=== PATIENT | male | born 1950 | race American Indian/Alaskan Native ===

== ENCOUNTER 2018-12-17 17:00 | Emergency (ER) | payer OTHER, SELFPAY ==
--- NOTE | 2018-12-17 17:00 | DI.RAD.S_ITS ---
PROCEDURE: XR CHEST 1V INDICATIONS: chest pain TECHNIQUE: One view of the chest was acquired. COMPARISON: [facility], , CHEST 2 VIEW, 09/11/2013, 11:31. FINDINGS: Surgical changes and devices: None. Lungs and pleura: There is mild diffuse bilateral groundglass density. No pleural effusions or pneumothorax. Mediastinum: Mediastinal contours appear normal. Heart size is enlarged. Bones and chest wall: No suspicious bony lesions. Overlying soft tissues appear unremarkable. IMPRESSION: Mild atypical pneumonia. Dictated by: Gail Flores M.D. on 12/17/2018 at 17:39 Approved by: Gail Flores M.D. on 12/17/2018 at 17:39
[2018-12-17 17:35] VITALS: BP 146/66; PULSE 86; RESP 19; TEMP 36.8; O2SAT 96
[2018-12-17 17:36] LABS: Add Manual Diff / Slide Review NO; Basophils Absolute Auto 0 /uL (0-100); Basophils Percent Auto 0.2 % (0-2); Eosinophils Absolute Auto 200 /uL (0-450); Eosinophils Percent Auto 2.8 % (2-4); Hematocrit 41.9 % (41-53); Hemoglobin 13.7 g/dL (13.5-17.5); Lymphocytes Absolute Auto 1500 /uL (1100-4500); Lymphocytes Percent Auto 22.8 % (25-40); Mean Corpuscular HGB Conc 32.7 % (30-36); Mean Corpuscular Hemoglobin 27.5 PG (26-34); Mean Corpuscular Volume 84.1 fL (80-100); Monocytes Absolute Auto 600 /uL (0-900); Monocytes Percent Auto 9.7 % (3-14); Neutrophils Absolute Auto 4100 /uL (1500-7000); Neutrophils Percent Auto 64.5 % (50-75); Platelet Count 218 X10^3/uL (150-400); Red Blood Cell Count 4.99 X10^6/uL (4.5-5.9); Red Cell Distribution Width 14.3 % (11.6-14.8); White Blood Cell Count 6.4 X10^3/uL (4.5-11.0)
--- NOTE | 2018-12-17 17:36 | ED.SYNCOPE ---
HPI - Syncope General Chief Complaint: Syncope Stated Complaint: Near Syncope Time Seen by Provider: 12/17/18 17:15 Source: patient and EMS Mode of arrival: EMS History of Present Illness HPI narrative: Patient is a 68-year-old male that presents with near syncopal episode. He walked 1.4 mild on the [employer] without difficulty got in his car drove about 100 he felt extremely lightheaded and dizzy no weakness chest pain or heart palpitations. He may have passed out briefly a co-worker was with him she did not notice any passing out. At which point 911 was called. He is overall feeling much better. He has a history of exercise induced near syncope. Related Data Home Medications Medication Instructions Recorded Confirmed multivitamin 1 tab PO DAILY #0 11/21/11 12/17/18 albuterol sulfate [Ventolin HFA] 2 puff INH PRN PRN #0 08/23/17 12/17/18 glipizide 5 mg PO QAM #0 08/23/17 12/17/18 hydrochlorothiazide 12.5 mg PO DAILY #0 08/23/17 12/17/18 losartan 100 mg PO DAILY #0 08/23/17 12/17/18 zolpidem 5 mg PO BEDTIME PRN #0 08/23/17 12/17/18 amlodipine 10 mg PO DAILY 12/17/18 12/17/18 aspirin 81 mg PO DAILY 12/17/18 12/17/18 atorvastatin 80 mg PO DAILY 12/17/18 12/17/18 buspirone 30 mg PO BID 12/17/18 12/17/18 carvedilol 25 mg PO BID 12/17/18 12/17/18 fluticasone propionate 1 spray INTRANASAL DAILY 12/17/18 12/17/18 glipizide 10 mg PO QPM 12/17/18 12/17/18 lidocaine 3 patch TOPICAL DAILY 12/17/18 12/17/18 metformin 500 mg PO BID 12/17/18 12/17/18 omeprazole 40 mg PO DAILY 12/17/18 12/17/18 oxybutynin chloride 5 mg PO TID 12/17/18 12/17/18 testosterone cypionate 300 mg IM Q3W 12/17/18 12/17/18 tramadol 50 mg PO Q6H PRN 12/17/18 12/17/18 Allergies Allergy/AdvReac Type Severity Reaction Status Date / Time Sulfa (Sulfonamide Allergy Severe RASH Unverified 12/11/17 13:03 Antibiotics) [SULFA (SULFONAMIDE ANTIBIOTICS)] iodine [IODINE] Allergy Mild RASH Unverified 12/11/17 13:03 Review of Systems Review of Systems ROS Unobtainable: All systems reviewed & are unremarkable except as noted in HPI and below Constitutional Denies chills, Denies fever(s), Denies lethargy and Denies weakness Eyes Denies change in vision, Denies eye discharge, Denies irritation and Denies loss of vision ENT Ears, Nose, Mouth, and Throat: Denies change in voice, Denies neck pain and Denies sore throat Cardiovascular Denies chest pain, Reports syncope, Denies irregular heart rhythm, Reports lightheadedness, Denies dyspnea and Denies dyspnea on exertion Respiratory Denies cough, Denies dyspnea, Denies dyspnea on exertion and Denies wheezing Gastrointestinal Gastrointestinal: Denies abdominal pain, Denies change in bowel habits, Denies diarrhea, Denies nausea and Denies vomiting Musculoskeletal Denies neck pain Integumentary/Breasts Denies pruritus, Denies erythema, Denies rash and Denies wounds Neurologic Reports syncope, Denies loss of vision and Denies weakness Allergic/Immunologic Denies wheezing FOR[facility]LY [facility], [facility] Medical History Diabetes (Acute) GERD (gastroesophageal reflux disease) (Acute) Hyperlipidemia (Acute) Hypertension (Acute) Social History (Updated 12/17/18 @ 19:08 by Carol Walter DO) Smoking Status: Never smoker substance use type: does not use Social History Smoking Status: Never smoker substance use type: does not use Exam Initial Vital Signs Initial Vital Signs: Vital Signs Temperature 98.3 F 12/17/18 17:35 Pulse Rate 86 12/17/18 17:35 Respiratory Rate 19 12/17/18 17:35 Blood Pressure 146/66 H 12/17/18 17:35 Pulse Oximetry 96 12/17/18 17:35 GENERAL: Alert male no acute distress a and O x3 HEENT: Head atraumatic,EOMI, pupils reactive, face symmetric CARDIOVASCULAR: Regular rate and rhythm without murmurs, rubs or gallops. RESPIRATORY: Breath sounds equal bilaterally, no wheezes rales or rhonchi. ABDOMEN: Soft, nontender. Normoactive bowel sounds all 4 quadrants. No guarding or rebound. EXTREMITIES: Normal range of motion, no clubbing or edema. Neurovascularly intact NEUROLOGICAL: Alert and oriented x4.Normal gait and speech. Cranial nerves II through XII grossly intact. Good [id number], good [id number], strength equal bilaterally, no dysarthria or aphasia, sensation in tact to soft touch bilaterally, no visual changes, no facial droop SKIN: Warm, dry, no laceration, no petechiae, no rashes or lesions. Scores NIH Stroke Scale Level of Conciousness: Alert, keenly responsive Ask month/age: Answers both questions correctly. Open/close eyes, close hand: Performs both tasks correctly Best gaze horizontal: Normal Visual brown: No visual loss Facial palsy: Normal symetrical movement Left arm drift: No drift for full 10 sec Right arm drift: No drift for full 10 sec Left leg drift: No drift for full 10 sec Right leg drift: No drift for full 10 sec Limb ataxia: Absent Sensory on face/arms/legs: Normal, no sensory loss Best language: No aphasia, normal Dysarthria: Normal Extinction or inattention: No abnormality Total NIH Stroke scale score: 0 Course Orders Ordered: Discontinued Medications Sodium Chloride (Normal Saline 0.9%) 1,000 mls @ 1,000 mls/hr IV BOLUS ONE Stop: 12/17/18 18:34 Last Admin: 12/17/18 18:20 Dose: 1,000 mls/hr Vital Signs - 8 hr 12/17/18 17:35 12/17/18 19:04 Temperature 98.3 F Pulse Rate 86 85 Respiratory Rate 19 22 Blood Pressure [Left Arm] 146/66 H 135/72 Pulse Oximetry 96 95 MDM - Syncope Lab Data Attestation: I reviewed the patient's lab results. Result diagrams: 12/17/18 17:26 12/17/18 17:26 Lab Results 12/17/18 12/17/18 12/17/18 Range/Units 17:26 17:26 17:26 WBC 6.4 (4.5-11.0) X10^3/uL RBC 4.99 (4.5-5.9) X10^6/uL Hgb 13.7 (13.5-17.5) g/dL Hct 41.9 (41-53) % MCV 84.1 (80-100) fL MCH 27.5 (26-34) PG MCHC 32.7 (30-36) % RDW 14.3 (11.6-14.8) % Plt Count 218 (150-400) X10^3/uL Neut % (Auto) 64.5 (50-75) % Lymph % (Auto) 22.8 L (25-40) % [place] % (Auto) 9.7 (3-14) % Eos % (Auto) 2.8 (2-4) % Baso % (Auto) 0.2 (0-2) % Neut # (Auto) 4100 (0921-2703) /uL Lymph # (Auto) 1500 (7416-5331) /uL [place] # (Auto) 600 (0-900) /uL Eos # (Auto) 200 (0-450) /uL Baso # (Auto) 0 (0-100) /uL PT 11.4 (10.1-12.7) SECONDS INR 1.0 (0.9-1.3) APTT 38 H (26.4-36.2) SECONDS Sodium 140 (137-145) mmol/L Potassium 4.6 (3.4-5.1) mmol/L Chloride 104 (98-107) mmol/L Carbon Dioxide 24 (22-32) mmol/L BUN 23 H (9-20) mg/dL Creatinine 1.30 H (0.66-1.25) mg/dL Estimated GFR 54.6 L (>60) mL/min BUN/Creatinine Ratio 17.7 (6-22) Glucose 180 H (80-110) mg/dL Calcium 9.6 (8.4-10.2) mg/dL Total Bilirubin 0.4 (0.2-1.3) mg/dL AST 26 (17-59) IU/L ALT 38 (21-72) IU/L Alkaline Phosphatase 58 (38-126) U/L Total Creatine Kinase 39 L (55-170) U/L CK-MB (CK-2) TNP CK-MB (CK-2) Rel Index TNP Troponin I < 0.012 (0.01-0.034) ng/mL Total Protein 7.6 (6.3-8.2) g/dL Albumin 4.7 (3.5-5.0) g/dL Globulin 2.9 (1.7-4.1) g/dL Albumin/Globulin Ratio 1.6 (1.0-2.8) Lipase 136 (23-300) U/L Point of Care Testing Glucose POC 191 Imaging Data Chest x-ray: Radiologist's impression: Not in [facility] but on PACS read by Radiology mild atypical pneumonia ECG Data Attestation: I personally reviewed and interpreted this ECG as follows: Prior ECG tracings: available for review Interpretation: EKG 1. Sinus rhythm with right bundle-branch block rate 87 [place] interval 219, no elevations previous EKG from 2013 atrial flutter EKG 2. Sinus rhythm rate 80 right bundle branch block similar to previous no ST change MDM Narrative Medical decision making narrative: Patient does not have signs or symptoms of pneumonia, does not clinically correlate no fever or white count or cough. Patient neurovascularly intact he did not actually pass out. Sounds like vasovagal reaction. Creatinine 1.3 today previous on 2012 seen creatinine of 0.80. Possible dehydration versus kidney disease. I recommended patient have his kidneys recheck. A loss of family in the room patient agreed to have medical discussion with them present. They all understood that he would likely need Holter monitor ECHO further workup as outpatient. They also agree and understand when to return to the ED. Discharge Plan Departure Patient Disposition: Home Clinical Impression: Vasovagal syncope Discharge Date/Time: 12/17/18 19:45 Interventions: ED Discharge Assessment Last Done: 12/17/18 19:45 Instructions: DI for Syncope in Adults (Fainting) Activity Restrictions/Additional Instructions: *You have been diagnosed with fainting episode *What to do: Today's episode is likely due to slight dehydration. Recommend drinking water right after walking. Frequent small low carb meals. I also recommend Holter monitor, echocardiogram and possible stress test all which can be arranged with your PCP *Continue to take medications as directed *Follow up with your primary care provider in 2-3 days *Return to ER if you should have recurrent near syncopal or syncopal episode, chest pain, worsening shortness of breath with exertion or any new, worsening or concerning symptoms Prescriptions: No Action multivitamin Tablet 1 tab PO DAILY Qty: 0 RF: 0 albuterol sulfate [Ventolin HFA] 90 MCG/PUFF HFA aerosol inhaler 2 puff INH PRN PRN (Reason: Shortness Of Breath) Qty: 0 RF: 0 hydrochlorothiazide 25 MG tablet 12.5 mg PO DAILY Qty: 0 RF: 0 losartan 100 MG tablet 100 mg PO DAILY Qty: 0 RF: 0 zolpidem 5 MG tablet 5 mg PO BEDTIME PRN (Reason: Sleep) Qty: 0 RF: 0 glipizide 5 MG tablet 5 mg PO QAM Qty: 0 RF: 0 metformin 500 mg Tablet 500 mg PO BID RF: 0 atorvastatin 80 mg Tablet 80 mg PO DAILY RF: 0 carvedilol 25 mg Tablet 25 mg PO BID RF: 0 tramadol 50 mg Tablet 50 mg PO Q6H PRN (Reason: pain) RF: 0 amlodipine 10 mg Tablet 10 mg PO DAILY RF: 0 buspirone 30 mg Tablet 30 mg PO BID RF: 0 lidocaine 5 % Adhesive Patch,Medicated 3 patch TOPICAL DAILY RF: 0 aspirin 81 mg Tablet,Chewable 81 mg PO DAILY RF: 0 testosterone cypionate 200 mg/mL Oil 300 mg IM Q3W RF: 0 oxybutynin chloride 5 mg Tablet 5 mg PO TID RF: 0 fluticasone propionate 50 mcg/actuation [place],Suspension 1 spray INTRANASAL DAILY RF: 0 glipizide 5 mg Tablet 10 mg PO QPM RF: 0 omeprazole 40 MG capsule,delayed release(DR/EC) 40 mg PO DAILY RF: 0 Referrals: Kathy Hoffmann MD [Primary Care Provider] -
--- NOTE | 2018-12-17 17:39 | ED_ITS ---
HPI - Syncope General Chief Complaint: Syncope Stated Complaint: Near Syncope Time Seen by Provider: 12/17/18 17:15 Source: patient and EMS Mode of arrival: EMS History of Present Illness HPI narrative: Patient is a 68-year-old male that presents with near syncopal episode. He walked 1.4 mild on the [place] without difficulty got in his car drove about 100 he felt extremely lightheaded and dizzy no weakness chest pain or heart palpitations. He may have passed out briefly a co-worker was with him she did not notice any passing out. At which point 911 was called. He is overall feeling much better. He has a history of exercise induced near syncope. Related Data Home Medications Medication Instructions Recorded Confirmed multivitamin 1 tab PO DAILY #0 11/21/11 12/17/18 albuterol sulfate [Ventolin HFA] 2 puff INH PRN PRN #0 08/23/17 12/17/18 glipizide 5 mg PO QAM #0 08/23/17 12/17/18 hydrochlorothiazide 12.5 mg PO DAILY #0 08/23/17 12/17/18 losartan 100 mg PO DAILY #0 08/23/17 12/17/18 zolpidem 5 mg PO BEDTIME PRN #0 08/23/17 12/17/18 amlodipine 10 mg PO DAILY 12/17/18 12/17/18 aspirin 81 mg PO DAILY 12/17/18 12/17/18 atorvastatin 80 mg PO DAILY 12/17/18 12/17/18 buspirone 30 mg PO BID 12/17/18 12/17/18 carvedilol 25 mg PO BID 12/17/18 12/17/18 fluticasone propionate 1 spray INTRANASAL DAILY 12/17/18 12/17/18 glipizide 10 mg PO QPM 12/17/18 12/17/18 lidocaine 3 patch TOPICAL DAILY 12/17/18 12/17/18 metformin 500 mg PO BID 12/17/18 12/17/18 omeprazole 40 mg PO DAILY 12/17/18 12/17/18 oxybutynin chloride 5 mg PO TID 12/17/18 12/17/18 testosterone cypionate 300 mg IM Q3W 12/17/18 12/17/18 tramadol 50 mg PO Q6H PRN 12/17/18 12/17/18 Allergies Allergy/AdvReac Type Severity Reaction Status Date / Time Sulfa (Sulfonamide Allergy Severe RASH Unverified 12/11/17 13:03 Antibiotics) [SULFA (SULFONAMIDE ANTIBIOTICS)] iodine [IODINE] Allergy Mild RASH Unverified 12/11/17 13:03 Review of Systems Review of Systems ROS Unobtainable: All systems reviewed & are unremarkable except as noted in HPI and below Constitutional Denies chills, Denies fever(s), Denies lethargy and Denies weakness Eyes Denies change in vision, Denies eye discharge, Denies irritation and Denies loss of vision ENT Ears, Nose, Mouth, and Throat: Denies change in voice, Denies neck pain and Denies sore throat Cardiovascular Denies chest pain, Reports syncope, Denies irregular heart rhythm, Reports lightheadedness, Denies dyspnea and Denies dyspnea on exertion Respiratory Denies cough, Denies dyspnea, Denies dyspnea on exertion and Denies wheezing Gastrointestinal Gastrointestinal: Denies abdominal pain, Denies change in bowel habits, Denies diarrhea, Denies nausea and Denies vomiting Musculoskeletal Denies neck pain Integumentary/Breasts Denies pruritus, Denies erythema, Denies rash and Denies wounds Neurologic Reports syncope, Denies loss of vision and Denies weakness Allergic/Immunologic Denies wheezing [facility] Medical History Diabetes (Acute) GERD (gastroesophageal reflux disease) (Acute) Hyperlipidemia (Acute) Hypertension (Acute) Social History (Updated 12/17/18 @ 19:08 by Carol Walter DO) Smoking Status: Never smoker substance use type: does not use Social History Smoking Status: Never smoker substance use type: does not use Exam Initial Vital Signs Initial Vital Signs: Vital Signs Temperature 98.3 F 12/17/18 17:35 Pulse Rate 86 12/17/18 17:35 Respiratory Rate 19 12/17/18 17:35 Blood Pressure 146/66 H 12/17/18 17:35 Pulse Oximetry 96 12/17/18 17:35 GENERAL: Alert male no acute distress a and O x3 HEENT: Head atraumatic,EOMI, pupils reactive, face symmetric CARDIOVASCULAR: Regular rate and rhythm without murmurs, rubs or gallops. RESPIRATORY: Breath sounds equal bilaterally, no wheezes rales or rhonchi. ABDOMEN: Soft, nontender. Normoactive bowel sounds all 4 quadrants. No guarding or rebound. EXTREMITIES: Normal range of motion, no clubbing or edema. Neurovascularly intact NEUROLOGICAL: Alert and oriented x4.Normal gait and speech. Cranial nerves II through XII grossly intact. Good ookida-[id number]-kzut, good glpw-[id number], strength equal bilaterally, no dysarthria or aphasia, sensation in tact to soft touch bilaterally, no visual changes, no facial droop SKIN: Warm, dry, no laceration, no petechiae, no rashes or lesions. Scores NIH Stroke Scale Level of Conciousness: Alert, keenly responsive Ask month/age: Answers both questions correctly. Open/close eyes, close hand: Performs both tasks correctly Best gaze horizontal: Normal Visual brown: No visual loss Facial palsy: Normal symetrical movement Left arm drift: No drift for full 10 sec Right arm drift: No drift for full 10 sec Left leg drift: No drift for full 10 sec Right leg drift: No drift for full 10 sec Limb ataxia: Absent Sensory on face/arms/legs: Normal, no sensory loss Best language: No aphasia, normal Dysarthria: Normal Extinction or inattention: No abnormality Total NIH Stroke scale score: 0 Course Orders Ordered: Discontinued Medications Sodium Chloride (Normal Saline 0.9%) 1,000 mls @ 1,000 mls/hr IV BOLUS ONE Stop: 12/17/18 18:34 Last Admin: 12/17/18 18:20 Dose: 1,000 mls/hr Vital Signs - 8 hr 12/17/18 17:35 12/17/18 19:04 Temperature 98.3 F Pulse Rate 86 85 Respiratory Rate 19 22 Blood Pressure [Left Arm] 146/66 H 135/72 Pulse Oximetry 96 95 MDM - Syncope Lab Data Attestation: I reviewed the patient's lab results. Result diagrams: 12/17/18 17:26 12/17/18 17:26 Lab Results 12/17/18 12/17/18 12/17/18 Range/Units 17:26 17:26 17:26 WBC 6.4 (4.5-11.0) X10^3/uL RBC 4.99 (4.5-5.9) X10^6/uL Hgb 13.7 (13.5-17.5) g/dL Hct 41.9 (41-53) % MCV 84.1 (80-100) fL MCH 27.5 (26-34) PG MCHC 32.7 (30-36) % RDW 14.3 (11.6-14.8) % Plt Count 218 (150-400) X10^3/uL Neut % (Auto) 64.5 (50-75) % Lymph % (Auto) 22.8 L (25-40) % [place] % (Auto) 9.7 (3-14) % Eos % (Auto) 2.8 (2-4) % Baso % (Auto) 0.2 (0-2) % Neut # (Auto) 4100 (0006-1657) /uL Lymph # (Auto) 1500 (6200-2676) /uL [place] # (Auto) 600 (0-900) /uL Eos # (Auto) 200 (0-450) /uL Baso # (Auto) 0 (0-100) /uL PT 11.4 (10.1-12.7) SECONDS INR 1.0 (0.9-1.3) APTT 38 H (26.4-36.2) SECONDS Sodium 140 (137-145) mmol/L Potassium 4.6 (3.4-5.1) mmol/L Chloride 104 (98-107) mmol/L Carbon Dioxide 24 (22-32) mmol/L BUN 23 H (9-20) mg/dL Creatinine 1.30 H (0.66-1.25) mg/dL Estimated GFR 54.6 L (>60) mL/min BUN/Creatinine Ratio 17.7 (6-22) Glucose 180 H (80-110) mg/dL Calcium 9.6 (8.4-10.2) mg/dL Total Bilirubin 0.4 (0.2-1.3) mg/dL AST 26 (17-59) IU/L ALT 38 (21-72) IU/L Alkaline Phosphatase 58 (38-126) U/L Total Creatine Kinase 39 L (55-170) U/L CK-MB (CK-2) TNP CK-MB (CK-2) Rel Index TNP Troponin I < 0.012 (0.01-0.034) ng/mL Total Protein 7.6 (6.3-8.2) g/dL Albumin 4.7 (3.5-5.0) g/dL Globulin 2.9 (1.7-4.1) g/dL Albumin/Globulin Ratio 1.6 (1.0-2.8) Lipase 136 (23-300) U/L Point of Care Testing Glucose POC 191 Imaging Data Chest x-ray: Radiologist's impression: Not in [facility] but on PACS read by Radiology mild atypical pneumonia ECG Data Attestation: I personally reviewed and interpreted this ECG as follows: Prior ECG tracings: available for review Interpretation: EKG 1. Sinus rhythm with right bundle-branch block rate 87 [place] interval 219, no elevations previous EKG from 2013 atrial flutter EKG 2. Sinus rhythm rate 80 right bundle branch block similar to previous no ST change MDM Narrative Medical decision making narrative: Patient does not have signs or symptoms of pneumonia, does not clinically correlate no fever or white count or cough. Patient neurovascularly intact he did not actually pass out. Sounds like vasovagal reaction. Creatinine 1.3 today previous on 2012 seen creatinine of 0.80. Possible dehydration versus kidney disease. I recommended patient have his kidneys recheck. A loss of family in the room patient agreed to have medical discussion with them present. They all understood that he would likely need Holter monitor ECHO further workup as outpatient. They also agree and understand when to return to the ED. Discharge Plan Departure Patient Disposition: Home Clinical Impression: Vasovagal syncope Discharge Date/Time: 12/17/18 19:45 Interventions: ED Discharge Assessment Last Done: 12/17/18 19:45 Instructions: DI for Syncope in Adults (Fainting) Activity Restrictions/Additional Instructions: *You have been diagnosed with fainting episode *What to do: Today's episode is likely due to slight dehydration. Recommend drinking water right after walking. Frequent small low carb meals. I also recommend Holter monitor, echocardiogram and possible stress test all which can be arranged with your PCP *Continue to take medications as directed *Follow up with your primary care provider in 2-3 days *Return to ER if you should have recurrent near syncopal or syncopal episode, chest pain, worsening shortness of breath with exertion or any new, worsening or concerning symptoms Prescriptions: No Action multivitamin Tablet 1 tab PO DAILY Qty: 0 RF: 0 albuterol sulfate [Ventolin HFA] 90 MCG/PUFF HFA aerosol inhaler 2 puff INH PRN PRN (Reason: Shortness Of Breath) Qty: 0 RF: 0 hydrochlorothiazide 25 MG tablet 12.5 mg PO DAILY Qty: 0 RF: 0 losartan 100 MG tablet 100 mg PO DAILY Qty: 0 RF: 0 zolpidem 5 MG tablet 5 mg PO BEDTIME PRN (Reason: Sleep) Qty: 0 RF: 0 glipizide 5 MG tablet 5 mg PO QAM Qty: 0 RF: 0 metformin 500 mg Tablet 500 mg PO BID RF: 0 atorvastatin 80 mg Tablet 80 mg PO DAILY RF: 0 carvedilol 25 mg Tablet 25 mg PO BID RF: 0 tramadol 50 mg Tablet 50 mg PO Q6H PRN (Reason: pain) RF: 0 amlodipine 10 mg Tablet 10 mg PO DAILY RF: 0 buspirone 30 mg Tablet 30 mg PO BID RF: 0 lidocaine 5 % Adhesive Patch,Medicated 3 patch TOPICAL DAILY RF: 0 aspirin 81 mg Tablet,Chewable 81 mg PO DAILY RF: 0 testosterone cypionate 200 mg/mL Oil 300 mg IM Q3W RF: 0 oxybutynin chloride 5 mg Tablet 5 mg PO TID RF: 0 fluticasone propionate 50 mcg/actuation [place],Suspension 1 spray INTRANASAL DAILY RF: 0 glipizide 5 mg Tablet 10 mg PO QPM RF: 0 omeprazole 40 MG capsule,delayed release(DR/EC) 40 mg PO DAILY RF: 0 Referrals: Kathy Hoffmann MD [Primary Care Provider] -
[2018-12-17 17:40] LABS: Prothrombin Time 11.4 SECONDS (10.1-12.7)
[2018-12-17 17:42] LABS: PTT Partial Thromboplastin Tim 38 SECONDS (26.4-36.2)
[2018-12-17 17:44] LABS: Alanine Aminotransferase 38 IU/L (21-72); Albumin 4.7 g/dL (3.5-5.0); Albumin Globulin Ratio 1.6 (1.0-2.8); Alkaline Phosphatase 58 U/L (38-126); Aspartate Aminotransferase 26 IU/L (17-59); BUN Creatinine Ratio 17.7 (6-22); Bilirubin Total 0.4 mg/dL (0.2-1.3); Blood Urea Nitrogen 23 mg/dL (9-20); Calcium 9.6 mg/dL (8.4-10.2); Carbon Dioxide 24 mmol/L (22-32); Chloride 104 mmol/L (98-107); Creatine Kinase 39 U/L (55-170); Estimated Glomerular Filt Rate 54.6 mL/min (>60); Globulin 2.9 g/dL (1.7-4.1); Glucose 180 mg/dL (80-110); HEMOLYSIS 25 (0-50); Lipase 136 U/L (23-300); Potassium 4.6 mmol/L (3.4-5.1); Sodium 140 mmol/L (137-145); Total Protein 7.6 g/dL (6.3-8.2)
[2018-12-17 17:56] LABS: Troponin I < 0.012 ng/mL (0.01-0.034)
[2018-12-17] MEDS: SODIUM CHLORIDE 0.9% 1,000 ML 1000 ML IV (18:20)
[2018-12-17 19:04] VITALS: BP 135/72; PULSE 85; RESP 22; O2SAT 95
== END 2018-12-17 19:45 | disposition home or self-care (01) ==
PROVIDERS: Emergency Provider Emergency Medicine; Family Provider Family Medicine; PCP Family Medicine
DX: R55 Syncope and collapse (principal)
CPT/HCPCS: 36415; 71045; 80053; 82550; 83690; 84484; 85025; 85610; 85730; 93005; 93010; 96360; 99282; 99283; 99285

== ENCOUNTER → 2018-12-22 10:42 | Outpatient (CLI) | payer OTHER, SELFPAY ==
--- NOTE | 2018-12-22 | DI.US.S_ITS ---
PROCEDURE: US CAROTID DOPPLER BI INDICATIONS: SYNCOPE AND COLLAPSE TECHNIQUE: Color and pulse Doppler interrogation was performed of both carotid systems, with image documentation and velocity measurements. COMPARISON: None. FINDINGS: Stenosis calculations are based on SRU (Society of Radiologists in Ultras[employer]) criteria. The flow velocities and the arterial waveforms are normal within both carotid arterial systems. Atherosclerotic plaque is seen on the right. The estimated degree of internal carotid artery stenosis is less than 50%. Antegrade flow is confirmed within both vertebral arteries. IMPRESSION: No hemodynamically significant stenosis is seen. Dictated by: Alessandro Delgadillo M.D. on 12/22/2018 at 12:05 Approved by: Alessandro Delgadillo M.D. on 12/22/2018 at 12:06
== END ==
PROVIDERS: Family Provider Family Medicine; PCP Family Medicine; Visit Provider Family Medicine
DX: R55 Syncope and collapse (principal)
CPT/HCPCS: 93880

== ENCOUNTER → 2019-01-06 15:40 | Outpatient (CLI) | payer OTHER, SELFPAY ==
--- NOTE | 2019-01-06 | DI.ECHO.S_ITS ---
[facility] +---------+ : : [address] : [address] : : : : [id number] : : : : Phone: [phone]+ Echocardiogram Report + + :Name: RAISA RICKS Study Date: 01/06/2019 Height: 68 in : :[facility] Exam Location: [facility] Weight: 223 lb : : Gender: Male BSA: 2.1 m2 : :: 1950 Age: 68 yrs BP: 120/75 mmHg: :Reason For Study: Syncope : :Ordering Physician: Kathy : :Shun Performed By: Ana Page : + + Interpretation Summary The left ventricle is normal in size. Left ventricular systolic function is low normal. The ejection fraction is estimated to be 50-55%. LV ejection fraction has not changed since 01/24/2017. There is a significant dyssynchronous contraction pattern, consistent with a conduction abnormality. There are no obvious focal wall motion abnormalities noted but poor endocardial definition reduces the sensitivity for the detection of such. Diastolic parameters suggest a relaxation abnormality of the left ventricle, consistent with probable normal filling pressures. The right ventricle is mildly dilated. The right ventricular systolic function is normal. Pulmonary artery pressures cannot be estimated because of the lack of a measurable TR jet velocity. Both atria are normal in size. There is no significant valvular heart disease. The aortic root is mildly dilated. The ascending aorta is mildly enlarged. Procedure: A two-dimensional transthoracic echocardiogram with color flow and Doppler was performed. The study quality was technically adequate. Comparison is made with the echocardiogram of 01/24/2017. The heart rate ranged between 64-74 bpm during the study. The patient had frequent PVCs during the exam. Left Ventricle: The left ventricle is normal in size. Left ventricular wall thickness is borderline increased. Left ventricular systolic function is low normal. The ejection fraction is estimated to be 50-55%. There is a significant dyssynchronous contraction pattern, consistent with a conduction abnormality. There are no obvious focal wall motion abnormalities noted but poor endocardial definition reduces the sensitivity for the detection of such. Diastolic parameters suggest a relaxation abnormality of the left ventricle, consistent with probable normal filling pressures. Right Ventricle: The right ventricle is mildly dilated. The right ventricular systolic function is normal. Atria: Both atria are normal in size. There is no Doppler evidence for an interatrial shunt. Mitral Valve: The mitral valve leaflets appear mildly thickened, but open well. There is trace mitral regurgitation. Aortic Valve: The aortic valve is trileaflet. The aortic valve opens well. The aortic valve is slightly calcified. There is trace aortic regurgitation. Tricuspid Valve: The tricuspid valve is normal in structure and function. There is a trace or physiologic amount of tricuspid regurgitation. Pulmonary artery pressures cannot be estimated because of the lack of a measurable TR jet velocity. Pulmonic Valve: The pulmonic valve is not well visualized. There is trace pulmonic regurgitation. There is no significant valvular heart disease. Great Vessels: The aortic root is mildly dilated. The ascending aorta is mildly enlarged. This is unchanged compared to the previous study. The pulmonary artery is not well visualized, but is probably normal size. The inferior vena cava was not well visualized. Pericardium/ Pleura There is no pericardial effusion. There is no pleural effusion. MMode/2D Measurements & Calculations LVIDd: 4.8 cm Ao root diam: 4.2 cm LVIDs: 3.2 cm asc Aorta Diam: 3.7 cm FS: 34.1 % EPSS: 1.1 cm IVSd: 1.0 cm LVPWd: 1.0 cm LV herron. diameter/BSA (cm/m^2): 2.3 LV sys. diameter/BSA (cm/m^2): 1.5 LA A2 area: 19.0 cm2 RA long axis: 4.5 cm LA A4 area: 20.2 cm2 RA area: 16.9 cm2 LA length (vol): 5.3 cm RA vol: 54.0 ml LA vol: 61.5 ml RA : 25.2 ml/m2 LA vol index: 28.7 ml/m2 RVD1 (basal): 4.6 cm RVD2 (mid): 4.7 cm Doppler Measurements & Calculations Ao V2 max: 143.6 cm/sec LVOT Max Gary: 75.7 cm/sec Ao V2 mean: 101.4 cm/sec LV V1 max P.3 mmHg Ao max P.2 mmHg LV V1 VTI: 14.8 cm Ao mean P.5 mmHg sev ratio: 0.60 Ao V2 VTI: 24.7 cm MV E max gary: 53.4 cm/sec PA V2 max: 57.2 cm/sec MV A max gary: 84.0 cm/sec PA V2 mean: 45.0 cm/sec MV E/A: 0.64 PA mean P.85 mmHg Med Peak E' Gary: 5.1 cm/sec PA Accel Time: 0.12 sec E/E' med: 10.6 Lat Peak E' Gary: 7.9 cm/sec E/E' lat: 6.7 E/e' average: 8.6 MV dec time: 0.27 sec MV P1/2t: 81.5 msec MV /2t max gary: 55.1 cm/sec MVA(2t): 2.7 cm2 Reading Physician:06:24 PM
== END ==
PROVIDERS: Family Provider Family Medicine; PCP Family Medicine; Visit Provider Family Medicine
DX: R55 Syncope and collapse (principal); I77.89 Other specified disorders of arteries and arterioles
CPT/HCPCS: 93306

== ENCOUNTER → 2019-12-21 15:54 | Outpatient (ROUT) | payer OTHER, SELFPAY ==
[2019-12-22 06:38] LABS: PSA Free % 32.1 % (.); PSA, Total 1.9 ng/mL (0.0-4.0)
== END ==
PROVIDERS: Family Provider Family Medicine; PCP Family Medicine; Visit Provider Family Medicine
DX: E29.1 Testicular hypofunction (principal)
CPT/HCPCS: 84153; 84154

== ENCOUNTER → 2020-02-02 16:38 | Outpatient (ROUT) | payer OTHER, SELFPAY ==
[2020-02-02 17:20] LABS: Collection Time Urine 24 Hours; Creatinine 24 Hour Urine 970 mg/day (1000-2000); Creatinine Urine Random 77.6 mg/dL; Protein (Total) Urine Random 76 mg/dL (0-12); Total Protein 24 Hour Urine 950 mg/day (42-225); Total Volume Urine 1250 mL
== END ==
PROVIDERS: Family Provider Family Medicine; PCP Family Medicine; Visit Provider Family Medicine
DX: R80.8 Other proteinuria (principal)
CPT/HCPCS: 82570; 84156

== ENCOUNTER → 2020-02-22 10:47 | Outpatient (CLI) | payer OTHER, SELFPAY ==
--- NOTE | 2020-02-22 10:52 | DI.RAD.S_ITS ---
PROCEDURE: XR KNEE RT 1TO2V INDICATIONS: Right hip and knee pain TECHNIQUE: 2 views of the knee were acquired. COMPARISON: [facility], [facility], XR KNEE STANDING BI, 02/22/2020, 10:52. [facility], [facility], KNEE 3V LEFT, 12/16/2009, 10:35. FINDINGS: Bones: No fractures or dislocations. No suspicious bony lesions. Mild right knee joint degeneration. Scattered degenerative subchondral sclerosis and spurring. Soft tissues: No joint effusion. No suspicious soft tissue calcifications. IMPRESSION: Mild right knee joint degeneration. If the patient's pain or other symptoms persist, consider further evaluation with MRI Dictated by: Arnold Garcia M.D. on 02/22/2020 at 13:02 Approved by: Arnold Garcia M.D. on 02/22/2020 at 13:03
--- NOTE | 2020-02-22 10:52 | DI.RAD.S_ITS ---
PROCEDURE: XR HIP W PEL IF DONE RT 2V INDICATIONS: Right hip and knee pain TECHNIQUE: AP pelvis with lateral view(s) of the right hip(s). COMPARISON: None. FINDINGS: Bones: No fractures or dislocations. Pelvic ring appears intact. No suspicious bony lesions. Lower lumbar spondylosis and facet arthropathy. Mild bilateral hip degeneration Soft tissues: The visualized bowel gas pattern is normal. No suspicious soft tissue calcifications. IMPRESSION: Mild bilateral hip degeneration Lower lumbar spondylosis and facet arthropathy. Dictated by: Arnold Garcia M.D. on 02/22/2020 at 13:03 Approved by: Arnold Garcia M.D. on 02/22/2020 at 13:05
--- NOTE | 2020-02-22 10:52 | DI.RAD.S_ITS ---
PROCEDURE: XR KNEE STANDING BI INDICATIONS: Right hip and knee pain TECHNIQUE: Single views of the right knee, and single views of the left knee. COMPARISON: [facility], , KNEE 3V LEFT, 12/16/2009, 10:35. FINDINGS: No acute fractures or dislocations. No focal osseous destruction. On the right, scattered degenerative subchondral sclerosis and spurring. Minimal narrowing of the medial and lateral joint space narrowing. On the left, scattered degenerative subchondral sclerosis and spurring. Mild narrowing of the medial joint space IMPRESSION: Mild bilateral knee joint degeneration Dictated by: Arnold Garcia M.D. on 02/22/2020 at 13:05 Approved by: Arnold Garcia M.D. on 02/22/2020 at 13:06
== END ==
PROVIDERS: Family Provider Family Medicine; PCP Family Medicine; Referring Provider Family Medicine; Visit Provider Family Medicine
DX: M25.551 Pain in right hip (principal); M25.561 Pain in right knee; M17.0 Bilateral primary osteoarthritis of knee; M16.0 Bilateral primary osteoarthritis of hip; M47.816 Spondylosis without myelopathy or radiculopathy, lumbar region
CPT/HCPCS: 73502; 73560; 73565

== ENCOUNTER → 2020-04-13 10:39 | Outpatient (CLI) | payer OTHER, SELFPAY ==
[2020-04-13 12:23] LABS: Hematocrit 43.3 % (41-53); Hemoglobin 14.6 g/dL (13.5-17.5); Mean Corpuscular HGB Conc 33.8 % (30-36); Mean Corpuscular Hemoglobin 27.5 PG (26-34); Mean Corpuscular Volume 81.2 fL (80-100); Platelet Count 175 X10^3/uL (150-400); Red Blood Cell Count 5.33 X10^6/uL (4.5-5.9); Red Cell Distribution Width 14.2 % (11.6-14.8); White Blood Cell Count 7.3 X10^3/uL (4.5-11.0)
[2020-04-13 12:44] LABS: BUN Creatinine Ratio 18.1 (6-22); Blood Urea Nitrogen 15 mg/dL (9-20); Calcium 9.1 mg/dL (8.4-10.2); Carbon Dioxide 23 mmol/L (22-32); Chloride 106 mmol/L (98-107); Estimated Glomerular Filt Rate > 60.0 mL/min (>60); Glucose 193 mg/dL (80-110); HEMOLYSIS 16 (0-50); Potassium 3.3 mmol/L (3.4-5.1); Sodium 138 mmol/L (137-145)
[2020-04-13 16:44] LABS: Creatinine Urine Random 146.9 mg/dL; Protein (Total) Urine Random 142 mg/dL (0-12); Protein Creatinine Ratio Urine 0.96 GRAM/24H
== END ==
PROVIDERS: Family Provider Family Medicine; PCP Family Medicine; Referring Provider Student in an Organized Health Care Education/Training Program; Visit Provider Student in an Organized Health Care Education/Training Program
DX: N05.9 Unspecified nephritic syndrome with unspecified morphologic changes (principal); D70.9 Neutropenia, unspecified; D63.1 Anemia in chronic kidney disease; R80.9 Proteinuria, unspecified
CPT/HCPCS: 36415; 80048; 82570; 84156; 85027

== ENCOUNTER → 2020-04-20 12:15 | Outpatient (CLI) | payer OTHER, SELFPAY ==
--- NOTE | 2020-04-20 | DI.US.S_ITS ---
PROCEDURE: US RENAL COMPLETE INDICATIONS: CKD TECHNIQUE: Real-time scanning was performed of the kidneys and bladder, with image documentation. COMPARISON: None. FINDINGS: Kidneys: Kidneys are normal in size. Right kidney measures 11.3 cm long; left kidney measures 12.5 cm long. Right renal cortical thickness is 1.9 cm; left renal cortical thickness is 1.7 cm. Renal cortical echotexture is normal. No hydronephrosis or nephrolithiasis. No suspicious solid mass lesions. Left renal cyst measuring 1.9 x 1.8 x 1.7 cm with simple appearance. Bladder: Pre-void bladder volume is 331 mL. Post-void residual is 103 mL. Pre-void images demonstrate no intraluminal masses or stones. On pre-void images, neither of the ureteral jets are noted with color Doppler interrogation. (Of note, ureteral jets may not be detectable in up to 25% of cases due to insufficient differences in specific gravity between ureteral and bladder urine). Miscellaneous: No free pelvic fluid. IMPRESSION: Simple appearing left renal cyst Postvoid residual measures 103 mL. Dictated by: Arnold Garcia M.D. on 04/20/2020 at 15:19 Approved by: Arnold Garcia M.D. on 04/20/2020 at 15:21
== END ==
PROVIDERS: Family Provider Family Medicine; PCP Family Medicine; Referring Provider Family Medicine; Visit Provider Student in an Organized Health Care Education/Training Program
DX: N18.2 Chronic kidney disease, stage 2 (mild) (principal); N28.1 Cyst of kidney, acquired
CPT/HCPCS: 76770

== ENCOUNTER → 2020-05-16 09:31 | Outpatient (CLI) | payer OTHER, SELFPAY ==
[2020-05-16 10:55] LABS: Creatinine Urine Random 215.8 mg/dL; Protein (Total) Urine Random 134 mg/dL (0-12); Protein Creatinine Ratio Urine 0.62 GRAM/24H
[2020-05-16 11:07] LABS: Blood Urea Nitrogen 15 mg/dL (9-20); Calcium 9.5 mg/dL (8.4-10.2); Carbon Dioxide 27 mmol/L (22-32); Chloride 104 mmol/L (98-107); Estimated Glomerular Filt Rate > 60.0 mL/min (>60); Glucose 208 mg/dL (80-110); HEMOLYSIS < 15 (0-50); Potassium 3.8 mmol/L (3.4-5.1); Sodium 141 mmol/L (137-145)
[2020-05-17 08:10] LABS: Complement C3 129 mg/dL (82-167)
[2020-05-18 20:52] LABS: Albumin 4.3 g/dL (2.9-4.4); Alpha-1-Globulin 0.1 g/dL (0.0-0.4); Alpha-2-Globulin 0.8 g/dL (0.4-1.0); Cytoplasmic C-ANCA <1:20 titer (Neg:<1:20); DNA (DS) Antibody 1 IU/mL (0-9); Gamma Globulin 1.1 g/dL (0.4-1.8); Perinuclear P-ANCA <1:20 titer (Neg:<1:20); Protein, Total 7.3 g/dL (6.0-8.5)
[2020-05-18 21:08] LABS: ANA Screen, IFA Negative (.)
[2020-05-20 11:03] LABS: Alpha-1 Globulin, Ur 7.1 % (.); Beta Globulin, Ur 16.4 % (.); Gamma Globulin, Ur 14.9 % (.); M-Spike % Not Observed % (Not Observed); Urine Total Protein 245.5 mg/dL (Not Estab.)
[2020-06-06 15:39] LABS: Immunoglobulin G,Serum 1115
[2020-06-06 15:40] LABS: Immunoglobulin A, Serum 104; Immunoglobulin M, Serum 74
== END ==
PROVIDERS: Family Provider Family Medicine; PCP Family Medicine; Referring Provider Family Medicine; Visit Provider Student in an Organized Health Care Education/Training Program
DX: L93.2 Other local lupus erythematosus (principal); M31.30 Wegener's granulomatosis without renal involvement; M32.10 Systemic lupus erythematosus, organ or system involvement unspecified; N00.9 Acute nephritic syndrome with unspecified morphologic changes; N05.9 Unspecified nephritic syndrome with unspecified morphologic changes; D89.89 Other specified disorders involving the immune mechanism, not elsewhere classified; D47.2 Monoclonal gammopathy; R80.9 Proteinuria, unspecified
CPT/HCPCS: 36415; 80048; 82570; 82784; 83516; 84155; 84156; 84165; 84166; 86038; 86160; 86225; 86334; 86335

== ENCOUNTER 2020-08-26 17:43 | Inpatient (IN) | payer OTHER, MEDICARE, SELFPAY ==
[2020-08-26] VITALS (46 sets, daily range): BP systolic 86–184; BP diastolic 47–101; PULSE 98–129; RESP 18–58; TEMP 36.2–37.3; O2SAT 90–100; BMI 34.4; BMI 33.2
--- NOTE | 2020-08-26 17:59 | DI.RAD.S_ITS ---
PROCEDURE: XR CHEST 1V INDICATIONS: sob TECHNIQUE: One view of the chest was acquired. COMPARISON: [facility], CR, XR CHEST 1V, 12/17/2018, 17:24. FINDINGS: Surgical changes and devices: Left-sided cardiac pacer device is in place. Lungs and pleura: Diffuse interstitial prominence. Suspected trace bilateral pleural effusions. Patchy bibasilar consolidations more pronounced on the right. Mediastinum: Mediastinal contours appear stable. Heart size is enlarged. Bones and chest wall: No suspicious bony lesions. Overlying soft tissues appear unremarkable. IMPRESSION: Cardiomegaly with diffuse interstitial prominence and patchy ill-defined bibasilar consolidations. Suspected trace bilateral pleural effusions. Findings may represent an infectious process (multifocal pneumonia) versus pulmonary edema. Recommend follow up chest radiograph 4-6 weeks after treatment to document resolution of findings and/or return to baseline examination. Dictated by: Foreign Ordoñez M.D. on 08/26/2020 at 18:17 Approved by: Foreign Ordoñez M.D. on 08/26/2020 at 18:20
--- NOTE | 2020-08-26 18:19 | ED.SOB ---
HPI - SOB/Dyspnea General Chief Complaint: Shortness of Breath/Dyspnea Stated Complaint: Resp distress Time Seen by Provider: 08/26/20 17:58 Source: patient and EMS Mode of arrival: EMS Limitations: no limitations History of Present Illness HPI Narrative: Patient is a 70-year-old male presents with sudden-onset shortness of breath. He does have a history of diabetes, pacemaker hypertension hyperlipidemia. He states he felt fine this morning took a nap woke up and felt like he was extremely short of breath. He denies any fever or cough or any chest pain. He is noted to be quite short of breath and dusky appearing. Immediately placed on BiPAP Started feeling better. He denies any known history of congestive heart failure, but does have a pacemaker Later after speaking with his daughter he apparently has not been feeling well for the last few days. He even got a COVID test. Symptoms are otherwise unclear. MD Complaint: shortness of breath Exacerbating factors: lying flat and exertion Related Data Home oxygen amount: none Home Medications Medication Instructions Recorded Confirmed multivitamin 1 tab PO DAILY #0 11/21/11 12/17/18 albuterol sulfate [Ventolin HFA] 2 puff INH PRN PRN #0 08/23/17 12/17/18 glipizide 5 mg PO QAM #0 08/23/17 12/17/18 hydrochlorothiazide 12.5 mg PO DAILY #0 08/23/17 12/17/18 losartan 100 mg PO DAILY #0 08/23/17 12/17/18 zolpidem 5 mg PO BEDTIME PRN #0 08/23/17 12/17/18 amlodipine 10 mg PO DAILY 12/17/18 12/17/18 aspirin 81 mg PO DAILY 12/17/18 12/17/18 atorvastatin 80 mg PO DAILY 12/17/18 12/17/18 buspirone 30 mg PO BID 12/17/18 12/17/18 carvedilol 25 mg PO BID 12/17/18 12/17/18 fluticasone propionate 1 spray INTRANASAL DAILY 12/17/18 12/17/18 glipizide 10 mg PO QPM 12/17/18 12/17/18 lidocaine 3 patch TOPICAL DAILY 12/17/18 12/17/18 metformin 500 mg PO BID 12/17/18 12/17/18 omeprazole 40 mg PO DAILY 12/17/18 12/17/18 oxybutynin chloride 5 mg PO TID 12/17/18 12/17/18 testosterone cypionate 300 mg IM Q3W 12/17/18 12/17/18 tramadol 50 mg PO Q6H PRN 12/17/18 12/17/18 Allergies Allergy/AdvReac Type Severity Reaction Status Date / Time Sulfa (Sulfonamide Allergy Severe RASH Verified 08/26/20 17:45 Antibiotics) [SULFA (SULFONAMIDE ANTIBIOTICS)] iodine [IODINE] Allergy Mild RASH Verified 08/26/20 17:45 Review of Systems Review of Systems ROS Unobtainable: All systems reviewed & are unremarkable except as noted in HPI and below Constitutional Constitutional: Denies frequent falls ENT Ears, Nose, Mouth, and Throat: Denies dizziness Cardiovascular Cardiovascular: Reports as per HPI and Reports dyspnea Respiratory Respiratory: Reports as per HPI and Reports dyspnea Musculoskeletal Musculoskeletal: Denies back pain, Denies myalgias and Denies numbness Integumentary/Breasts Skin/Breast: Denies pruritus, Denies erythema, Denies rash and Denies wounds Neurologic Neurologic: Denies behavioral changes, Denies confusion, Denies dizziness, Denies frequent falls and Denies numbness Psychiatric Psychiatric: Denies behavioral changes and Denies confusion Patient History Medical History (Updated 08/26/20 @ 20:13 by Carol Walter DO) Diabetes GERD (gastroesophageal reflux disease) Hyperlipidemia Hypertension Social History Smoking Status: Never smoker substance use type: does not use Smoking Status: Never smoker Substance Use Type: does not use Exam Initial Vital Signs Initial Vital Signs: Vital Signs Temperature 97.1 F L 08/26/20 17:47 Pulse Rate 129 H 08/26/20 17:47 Respiratory Rate 58 H 08/26/20 17:47 Blood Pressure 139/101 H 08/26/20 17:47 Pulse Oximetry 98 08/26/20 17:47 GENERAL: Severe respiratory distress pale and in cololr. HEENT: Head atraumatic,EOMI, pupils reactive, face symmetric, moist mucous membranes CARDIOVASCULAR: Regular rate and rhythm without murmurs, rubs or gallops. RESPIRATORY: Coarse breath sounds bilaterally ABDOMEN: Soft, nontender. Normoactive bowel sounds all 4 quadrants. No guarding or rebound. EXTREMITIES: Normal range of motion, no clubbing or edema. Neurovascularly intact NEUROLOGICAL: Alert and oriented x4. SKIN: Warm, dry, no laceration, no petechiae, no rashes or lesions. Procedures Cardioversion Consent Signed: Yes Stability: Stable Number of attempts (shocks): 2 Joules used: 200 Cardiac rhythm post-cardioversion: Unchanged Additional Comments: 1 attempt at 150 joules 2nd attempt at 200 joules and no real changes Procedural Sedation Consent signed: Yes Time out performed: Yes Indication: cardioversion Preparation: cardiac cath lab manager applied, pulse oximeter and supplemental O2 applied IV Propofol dose (mg): 100 Intraservice time/total sedation time (min): 13 ED Sedation Level: Moderate (Concious) Complications: none Additional Comments: Patient was left on BiPAP for cardioversion Course Orders Ordered: ED Orders 08/26/20 17:58 Consult to Respiratory Therapy Evaluate & Treat Arterial Blood Gas Stat BiPAP Ventilatory Support RT PROTOCOL EKG-12 Lead Stat 08/26/20 17:59 XR chest 1V Stat 08/26/20 18:00 COVID19 Stat Complete Blood Count AUTO DIFF Stat Comprehensive Metabolic Panel Stat Lactate (Lactic Acid) Stat Magnesium Stat NT-proBNP (BNP-Adult 18+) Stat Partial Thromboplastin Time Stat Procalcitonin Stat Prothrombin Time INR Stat Troponin & CK Cardiac Panel Stat 08/26/20 18:20 Blood Culture Stat Acetaminophen (Acetaminophen 325 Mg Tablet) 650 mg PO Q4HR PRN PRN Reason: Fever/Mild Pain (1-3) Bisacodyl (Bisacodyl 10 Mg Supp) 10 mg MS DAILY PRN PRN Reason: Constipation Dextrose (Dextrose 50 % In Water 25 Gm/50 Ml Syringe) 25 gm IV PRN PRN; Protocol PRN Reason: Hypoglycemia Docusate Sodium (Docusate 100 Mg Capsule) 100 mg PO BID ZAC Enoxaparin Sodium (Enoxaparin 40 Mg/0.4 Ml Syringe) 40 mg SUBCUT DAILY ZAC Nitroglycerin (Nitroglycerin) 50 mg in 250 mls @ 1.5 mls/hr IV TITRATE ZAC; Protocol Last Titration: 08/26/20 21:04 Dose: 0 mcg/min, 0 mls/hr Documented by: Titration: 08/26/20 19:12 Dose: 0 mcg/min, 0 mls/hr Documented by: Admin: 08/26/20 18:38 Dose: 5 mcg/min, 1.5 mls/hr Documented by: MIRANDA Piperacillin/Tazobactam/Dextrose (Zosyn) 4.5 gm in 100 mls @ 200 mls/hr IV Q6H ZAC Insulin Aspart (Insulin Aspart 100 Unit/Ml Insuln Pen) 0 unit SUBCUT ACHS ZAC; Protocol Morphine Sulfate (Morphine 2 Mg/Ml Inj) 2 mg IV Q4HR PRN PRN Reason: Pain, Moderate (4-6) Naloxone HCl (Naloxone 0.4 Mg/Ml Vial) 0.2 mg IV Q2MIN PRN PRN Reason: Opiate Reversal Ondansetron HCl (Ondansetron 4 Mg/2 Ml Inj) 4 mg IV Q8HR PRN PRN Reason: Nausea And Vomiting Pantoprazole Sodium (Pantoprazole 40 Mg Vial) 40 mg IV DAILY ZAC Discontinued Medications Furosemide (Furosemide 40 Mg/4 Ml Vial) 40 mg IV NOW ONE Stop: 08/26/20 17:59 Last Admin: 08/26/20 18:27 Dose: 40 mg Documented by: MIRANDA Furosemide (Furosemide 20 Mg/2 Ml Vial) 20 mg IV NOW ONE Stop: 08/26/20 21:35 Amiodarone HCl/Dextrose (Nexterone) 150 mg in 100 mls @ 600 mls/hr IV NOW ONE; Protocol Stop: 08/26/20 18:27 Last Infusion: 08/26/20 18:46 Dose: 0 mls/hr Documented by: Admin: 08/26/20 18:31 Dose: 600 mls/hr Documented by: MIRANDA Amiodarone HCl/Dextrose (Nexterone) 360 mg in 200 mls @ 33.333 mls/hr IV NOW ONE; Protocol Stop: 08/27/20 00:17 Last Titration: 08/26/20 21:04 Dose: 0 mls/hr, 0 mls/hr Documented by: Titration: 08/26/20 20:02 Dose: 0 mls/hr, 0 mls/hr Documented by: Admin: 08/26/20 18:58 Dose: 33.33 mls/hr, 33.333 mls/hr Documented by: MIRANDA Piperacillin/Tazobactam/Dextrose (Zosyn) 3.375 gm in 50 mls @ 100 mls/hr IV NOW ONE Stop: 08/26/20 19:22 Last Infusion: 08/26/20 19:35 Dose: 0 mls/hr Documented by: Admin: 08/26/20 18:55 Dose: 100 mls/hr Documented by: NICK Nitroglycerin (Nitroglycerin Oint 1 Inch/Gm Oint...G.) 1 inch TOP NOW ONE Stop: 08/26/20 21:34 Propofol (Propofol 200 Mg/20 Ml Vial) 100 mg IV NOW ONE Stop: 08/26/20 18:58 Last Admin: 08/26/20 19:12 Dose: 100 mg Documented by: NICK Consultations Consultation #1: Dr. Yee updated patient's symptoms in test results at this time a magnet is placed on patient. She recommends interrogating the pacemaker device. It is [employer]. 1955. Again talked with Dr. Yee after interrogation report came in. She reviewed it herself. She states patient is in a sinus rhythm. Thinks patient more likely has a pneumonia rather than CHF. She states certainly this is not a bad heart to arrhythmia. Time: 19:31 Vital Signs Vital signs: Vital Signs - 8 hr 08/26/20 17:47 08/26/20 17:55 08/26/20 17:56 Temperature 97.1 F L Pulse Rate 129 H 129 H 129 H Respiratory Rate 58 H 28 H 26 H Blood Pressure 139/101 H 184/88 H Pulse Oximetry 98 100 100 08/26/20 18:00 08/26/20 18:06 08/26/20 18:10 Temperature Pulse Rate 128 H 124 H 122 H Respiratory Rate 28 H 42 H 35 H Blood Pressure 164/74 H 147/86 H 148/83 H Pulse Oximetry 100 100 99 08/26/20 18:17 08/26/20 18:20 08/26/20 18:24 Temperature Pulse Rate 121 H 120 H 123 H Respiratory Rate 33 H 34 H 35 H Blood Pressure 146/84 H 132/75 144/72 H Pulse Oximetry 100 100 99 08/26/20 18:26 08/26/20 18:30 08/26/20 18:32 Temperature Pulse Rate 122 H 122 H 123 H Respiratory Rate 37 H 40 H 37 H Blood Pressure 125/59 L 129/89 Pulse Oximetry 100 100 100 08/26/20 18:35 08/26/20 18:38 08/26/20 18:40 Temperature Pulse Rate 125 H 124 H 124 H Respiratory Rate 34 H 32 H Blood Pressure 143/74 H 143/74 H 142/67 H Pulse Oximetry 99 99 08/26/20 18:45 08/26/20 18:50 08/26/20 18:55 Temperature Pulse Rate 120 H 116 H 116 H Respiratory Rate 32 H 30 H 29 H Blood Pressure 129/77 126/75 129/74 Pulse Oximetry 99 98 100 08/26/20 19:00 08/26/20 19:05 08/26/20 19:10 Temperature Pulse Rate 117 H 112 H 114 H Respiratory Rate 31 H 26 H 28 H Blood Pressure 128/68 116/56 L 132/61 Pulse Oximetry 99 98 98 08/26/20 19:15 08/26/20 19:17 08/26/20 19:20 Temperature Pulse Rate 102 H 100 H 99 H Respiratory Rate 51 H 33 H 33 H Blood Pressure 86/47 L 102/57 L 93/55 L Pulse Oximetry 96 95 99 08/26/20 19:25 08/26/20 19:28 08/26/20 19:30 Temperature Pulse Rate 99 H 98 H Respiratory Rate 28 H 26 H Blood Pressure 93/52 L 93/52 L 104/57 L Pulse Oximetry 97 100 08/26/20 19:35 08/26/20 19:40 08/26/20 19:41 Temperature Pulse Rate 99 H 102 H Respiratory Rate 26 H 38 H Blood Pressure 96/53 L 107/74 107/74 Pulse Oximetry 98 90 L 08/26/20 19:45 08/26/20 19:50 08/26/20 19:55 Temperature Pulse Rate 99 H 98 H 100 H Respiratory Rate 25 H 28 H 27 H Blood Pressure 100/67 106/66 113/68 Pulse Oximetry 96 98 97 08/26/20 20:00 08/26/20 20:05 08/26/20 20:10 Temperature Pulse Rate 99 H 99 H 100 H Respiratory Rate 33 H 28 H 36 H Blood Pressure 113/70 97/59 L 108/66 Pulse Oximetry 97 97 97 MDM - SOB/Dyspnea Lab Data Attestation: I reviewed the patient's lab results. Result diagrams: 08/26/20 18:00 08/26/20 18:00 Labs: Lab Results 08/26/20 08/26/20 08/26/20 Range/Units 18:00 18:00 18:00 WBC 17.4 H (4.5-11.0) X10^3/uL RBC 5.43 (4.5-5.9) X10^6/uL Hgb 14.7 (13.5-17.5) g/dL Hct 45.2 (41-53) % MCV 83.2 (80-100) fL MCH 27.1 (26-34) PG MCHC 32.5 (30-36) % RDW 14.8 (11.6-14.8) % Plt Count 190 (150-400) X10^3/uL Neut % (Auto) 78.8 H (50-75) % Lymph % (Auto) 12.3 L (25-40) % Branch % (Auto) 7.4 (3-14) % Eos % (Auto) 1.2 L (2-4) % Baso % (Auto) 0.3 (0-2) % Neut # (Auto) 46225 H (0310-6089) /uL Lymph # (Auto) 2100 (1640-4022) /uL Branch # (Auto) 1300 H (0-900) /uL Eos # (Auto) 200 (0-450) /uL Baso # (Auto) 100 (0-100) /uL PT 11.5 (10.1-12.7) SECONDS INR 1.0 (0.9-1.3) APTT 32 D (26.4-36.2) SECONDS Sodium (137-145) mmol/L Potassium (3.4-5.1) mmol/L Chloride (98-107) mmol/L Carbon Dioxide (22-32) mmol/L BUN (9-20) mg/dL Creatinine (0.66-1.25) mg/dL Estimated GFR (>60) mL/min BUN/Creatinine Ratio (6-22) Glucose (80-110) mg/dL Lactate (0.7-2.1) mmol/L Calcium (8.4-10.2) mg/dL Magnesium 1.8 (1.6-2.3) mg/dL Total Bilirubin (0.2-1.3) mg/dL AST (17-59) IU/L ALT (<50) IU/L Alkaline Phosphatase (38-126) U/L Total Creatine Kinase 101 (55-170) U/L CK-MB (CK-2) 1.37 (<2.37) ng/mL CK-MB (CK-2) Rel Index 1.4 L (1.5-5.0) % Troponin I 0.071 H (0.01-0.034) ng/mL NT-Pro-B Natriuret Pep 2310 H (<125) pg/mL Total Protein (6.3-8.2) g/dL Albumin (3.5-5.0) g/dL Globulin (1.7-4.1) g/dL Albumin/Globulin Ratio (1.0-2.8) Procalcitonin (<0.5) ng/mL COVID-19 PCR (Negative) 08/26/20 08/26/20 08/26/20 Range/Units 18:00 18:00 18:00 WBC (4.5-11.0) X10^3/uL RBC (4.5-5.9) X10^6/uL Hgb (13.5-17.5) g/dL Hct (41-53) % MCV (80-100) fL MCH (26-34) PG MCHC (30-36) % RDW (11.6-14.8) % Plt Count (150-400) X10^3/uL Neut % (Auto) (50-75) % Lymph % (Auto) (25-40) % Branch % (Auto) (3-14) % Eos % (Auto) (2-4) % Baso % (Auto) (0-2) % Neut # (Auto) (0128-1551) /uL Lymph # (Auto) (9801-9180) /uL Branch # (Auto) (0-900) /uL Eos # (Auto) (0-450) /uL Baso # (Auto) (0-100) /uL PT (10.1-12.7) SECONDS INR (0.9-1.3) APTT (26.4-36.2) SECONDS Sodium 139 (137-145) mmol/L Potassium 4.1 (3.4-5.1) mmol/L Chloride 107 (98-107) mmol/L Carbon Dioxide 24 (22-32) mmol/L BUN 22 H (9-20) mg/dL Creatinine 1.67 H (0.66-1.25) mg/dL Estimated GFR 40.6 L (>60) mL/min BUN/Creatinine Ratio 13.2 (6-22) Glucose 258 H (80-110) mg/dL Lactate 2.1 (0.7-2.1) mmol/L Calcium 8.9 (8.4-10.2) mg/dL Magnesium (1.6-2.3) mg/dL Total Bilirubin 0.6 (0.2-1.3) mg/dL AST 26 (17-59) IU/L ALT 29 (<50) IU/L Alkaline Phosphatase 84 (38-126) U/L Total Creatine Kinase (55-170) U/L CK-MB (CK-2) (<2.37) ng/mL CK-MB (CK-2) Rel Index (1.5-5.0) % Troponin I (0.01-0.034) ng/mL NT-Pro-B Natriuret Pep (<125) pg/mL Total Protein 7.3 (6.3-8.2) g/dL Albumin 4.0 (3.5-5.0) g/dL Globulin 3.3 (1.7-4.1) g/dL Albumin/Globulin Ratio 1.2 (1.0-2.8) Procalcitonin < 0.05 (<0.5) ng/mL COVID-19 PCR (Negative) 08/26/20 Range/Units 18:00 WBC (4.5-11.0) X10^3/uL RBC (4.5-5.9) X10^6/uL Hgb (13.5-17.5) g/dL Hct (41-53) % MCV (80-100) fL MCH (26-34) PG MCHC (30-36) % RDW (11.6-14.8) % Plt Count (150-400) X10^3/uL Neut % (Auto) (50-75) % Lymph % (Auto) (25-40) % Branch % (Auto) (3-14) % Eos % (Auto) (2-4) % Baso % (Auto) (0-2) % Neut # (Auto) (0788-2293) /uL Lymph # (Auto) (7394-4646) /uL Branch # (Auto) (0-900) /uL Eos # (Auto) (0-450) /uL Baso # (Auto) (0-100) /uL PT (10.1-12.7) SECONDS INR (0.9-1.3) APTT (26.4-36.2) SECONDS Sodium (137-145) mmol/L Potassium (3.4-5.1) mmol/L Chloride (98-107) mmol/L Carbon Dioxide (22-32) mmol/L BUN (9-20) mg/dL Creatinine (0.66-1.25) mg/dL Estimated GFR (>60) mL/min BUN/Creatinine Ratio (6-22) Glucose (80-110) mg/dL Lactate (0.7-2.1) mmol/L Calcium (8.4-10.2) mg/dL Magnesium (1.6-2.3) mg/dL Total Bilirubin (0.2-1.3) mg/dL AST (17-59) IU/L ALT (<50) IU/L Alkaline Phosphatase (38-126) U/L Total Creatine Kinase (55-170) U/L CK-MB (CK-2) (<2.37) ng/mL CK-MB (CK-2) Rel Index (1.5-5.0) % Troponin I (0.01-0.034) ng/mL NT-Pro-B Natriuret Pep (<125) pg/mL Total Protein (6.3-8.2) g/dL Albumin (3.5-5.0) g/dL Globulin (1.7-4.1) g/dL Albumin/Globulin Ratio (1.0-2.8) Procalcitonin (<0.5) ng/mL COVID-19 PCR Negative (Negative) Point of Care Testing Glucose POC 185 Urine Dip Bedside Urine Glucose Negative Bedside Urine Bilirubin + 1 Bedside Urine Ketone - Negative Urine Specific [place] 1.025 Bedside Urine Occult Blood - Negative Bedside Urine pH 6 Bedside Urine Protein ++ 100 Bedside Urine Urobilinogen - Negative Bedside Urine Nitrite - Negative Bedside Urine Leukocytes - Negative Esterase Imaging Data Chest x-ray: Radiologist's Impression: PROCEDURE: XR CHEST 1V INDICATIONS: sob TECHNIQUE: One view of the chest was acquired. COMPARISON: [facility], CR, XR CHEST 1V, 12/17/2018, 17:24. FINDINGS: Surgical changes and devices: Left-sided cardiac pacer device is in place. Lungs and pleura: Diffuse interstitial prominence. Suspected trace bilateral pleural effusions. Patchy bibasilar consolidations more pronounced on the right. Mediastinum: Mediastinal contours appear stable. Heart size is enlarged. Bones and chest wall: No suspicious bony lesions. Overlying soft tissues appear unremarkable. IMPRESSION: Cardiomegaly with diffuse interstitial prominence and patchy ill-defined bibasilar consolidations. Suspected trace bilateral pleural effusions. Findings may represent an infectious process (multifocal pneumonia) versus pulmonary edema. Recommend follow up chest radiograph 4-6 weeks after treatment to document resolution of findings and/or return to baseline examination. Dictated by: Foreign Ordoñez M.D. on 08/26/2020 at 18:17 ECG Data Attestation: I personally reviewed and interpreted this ECG as follows: Prior ECG tracings: available for review Interpretation: EKG 1. Artifact noted paced rhythm wide complex rate 126 EKG 2. Paced rhythm wide complex V-tach rate 113 EKG 3. Paced rhythm rate 101 MDM Narrative Medical decision making narrative: Patient initially came in and was quite tachypneic and pale. Immediately placed on BiPAP. Initial story was this started suddenly when he woke up thought to be flash pulmonary edema. He was treated as such with IV dose of nitroglycerin Lasix and BiPAP. He did urinate some with Lasix and nitroglycerin. His oxygen and breathing status improved significantly with BiPAP. EKGs were concerning. White complex and paste concern for either AFib with aberrant see or V-tach. Patient was awake and alert blood pressure stable. Amiodarone 150 mg bolus given. No change in the rhythm infected remained in the 120s and wide. Decision made to cardiovert. Patient was shocked twice without any change in rhythm. I spoke with cardiology Dr. Yee who suggested placing a magnet over it he should be paced at 100. Pacemaker was interrogated it does appear that it is sinus tachycardia. Cardiology is aware of BNP and troponin. At this time this is unlikely cardiac related all suggest may be more likely a pneumonia picture rather than pulmonary edema Patient likely has a mixed picture of pneumonia and CHF with elevated BNP. He improved significantly with BiPAP. He does have a her ptosis of 17.9. He was given a dose of Zosyn to cover for infection. Patient overall improved during his stay in the emergency department. Amiodarone drip was stopped at a after cardiology confirm sinus rhythm. Rigoberto HARP updated on patient's symptoms test results and diagnosis of pneumonia. Accepts patient Critical Care Time Critical Care Time Critical Care Time: Yes Total Critical Care Time: 60 Attestation: The high probability of a clinically significant, sudden or life threatening deterioration of the [cardiovascular] system(s) required my full and direct attention, intervention and personal management. The aggregate critical care time was 60 minutes. This time is in addition to time spent performing reported procedures but includes the following: [x] Data Review and interpretation [x] Patient assessment and monitoring of vital signs [x] Documentation [x] Medication orders and management Discharge Plan Departure Patient Disposition: Admitted As Inpatient Clinical Impression: Pneumonia Qualifiers: Pneumonia type: due to unspecified organism Laterality: right Lung location: lower lobe of lung Qualified Code(s): J18.9 - Pneumonia, unspecified organism Admit Date/Time: 08/26/20 20:12 Admit Provider: Souleymane Jett
[2020-08-26 18:20] LABS: COVID19 -Nasal RAPID Negative (Negative)
--- NOTE | 2020-08-26 18:25 | RT ---
At bedside for Resp distress pt, at bedside and pt placed on BIPAP without incident. Pt states breathing improving and filters on exhalation port. ABG pending
[2020-08-26] MEDS: FUROSEMIDE 40 MG/4 ML VIAL IV (18:27)
[2020-08-26] MEDS: AMIODARONE 150 MG/100 ML PIGGYBACK 600 MG IV (18:31)
[2020-08-26] MEDS: NITROGLYCERIN 50 MG/250 ML INFUS..BTL IV (18:38)
[2020-08-26 18:42] LABS: Add Manual Diff / Slide Review NO; Basophils Absolute Auto 100 /uL (0-100); Basophils Percent Auto 0.3 % (0-2); Eosinophils Absolute Auto 200 /uL (0-450); Eosinophils Percent Auto 1.2 % (2-4); Hematocrit 45.2 % (41-53); Hemoglobin 14.7 g/dL (13.5-17.5); Lymphocytes Absolute Auto 2100 /uL (1100-4500); Lymphocytes Percent Auto 12.3 % (25-40); Mean Corpuscular HGB Conc 32.5 % (30-36); Mean Corpuscular Hemoglobin 27.1 PG (26-34); Mean Corpuscular Volume 83.2 fL (80-100); Monocytes Absolute Auto 1300 /uL (0-900); Monocytes Percent Auto 7.4 % (3-14); Neutrophils Absolute Auto 13700 /uL (1500-7000); Neutrophils Percent Auto 78.8 % (50-75); Platelet Count 190 X10^3/uL (150-400); Red Blood Cell Count 5.43 X10^6/uL (4.5-5.9); Red Cell Distribution Width 14.8 % (11.6-14.8); White Blood Cell Count 17.4 X10^3/uL (4.5-11.0)
[2020-08-26] MEDS: PIPERACILLIN-TAZO 3.375 GM/50 ML FROZ.PIGGY IV (18:55)
[2020-08-26] MEDS: AMIODARONE 360 MG/200 ML PIGGYBACK 33.333 MG IV (18:58)
[2020-08-26 18:59] LABS: Prothrombin Time 11.5 SECONDS (10.1-12.7)
[2020-08-26 19:02] LABS: PTT Partial Thromboplastin Tim 32 SECONDS (26.4-36.2)
[2020-08-26 19:03] LABS: Alanine Aminotransferase 29 IU/L (<50); Albumin Globulin Ratio 1.2 (1.0-2.8); Alkaline Phosphatase 84 U/L (38-126); Aspartate Aminotransferase 26 IU/L (17-59); BUN Creatinine Ratio 13.2 (6-22); Bilirubin Total 0.6 mg/dL (0.2-1.3); Blood Urea Nitrogen 22 mg/dL (9-20); Calcium 8.9 mg/dL (8.4-10.2); Carbon Dioxide 24 mmol/L (22-32); Chloride 107 mmol/L (98-107); Estimated Glomerular Filt Rate 40.6 mL/min (>60); Globulin 3.3 g/dL (1.7-4.1); Glucose 258 mg/dL (80-110); HEMOLYSIS < 15 (0-50); Potassium 4.1 mmol/L (3.4-5.1); Sodium 139 mmol/L (137-145); Total Protein 7.3 g/dL (6.3-8.2)
[2020-08-26 19:04] LABS: Creatine Kinase 101 U/L (55-170); Magnesium 1.8 mg/dL (1.6-2.3)
[2020-08-26 19:05] LABS: Lactate (Lactic Acid) 2.1 mmol/L (0.7-2.1)
[2020-08-26] MEDS: propofoL 200 MG/20 ML VIAL 100 MG IV (19:12)
[2020-08-26 19:15] LABS: NT-proBNP (BNP-Adult 18+) 2310 pg/mL (<125); Troponin I 0.071 ng/mL (0.01-0.034)
[2020-08-26 19:19] LABS: CKMB % Relative Index 1.4 % (1.5-5.0); Creatine Kinase MB 1.37 ng/mL (<2.37)
[2020-08-26 19:24] LABS: Procalcitonin < 0.05 ng/mL (<0.5)
--- NOTE | 2020-08-26 20:03 | PC.NURSE ---
patient's daughter Yarelis was called and updated by RN and MD. Yarelis stated that her daughter talked to the patient yesterday and that the patient stated that he was not feeling well for the last few days. Yarelis also stated that the patient was rapid swabbed yesterday, for COVID-19 and he was negative.
--- NOTE | 2020-08-26 20:14 | PC.NURSE ---
lung sounds improving. Upon arrival course lung sounds were heard across all lung field during inhalation and exhalation. Now, course lung sounds only heard on expiration.
[2020-08-26 20:31] LABS: Reflexed Lactate in 2 Hours Y
[2020-08-26 21:02] LABS: Lactate 2HR (Lactic Acid Rflx) 1.2 mmol/L (0.7-2.1)
--- NOTE | 2020-08-26 21:44 | PM.HP.1 ---
History of Present Illness History of Present Illness Date Patient Seen: 08/26/20 Time Patient Seen: 21:00 Chief complaint: Resp distress Narrative: Mr. Raymond Zazueta is a 70-year-old male with a past medical history significant for coronary artery disease, status post pacemaker implantation, hypertension, hyperlipidemia, type 2 diabetes and GERD who presents to the ER with acute onset shortness of breath. Patient is a difficult historian but information obtained indications the patient was feeling well this morning. He laid down for nap and upon waking with acutely short of breath with cough. Additional information obtained from family was at the patient has been feeling poorly for the last several days the patient denies fevers or chills, shortness of breath cough or wheezing, has no abdominal pain, nausea vomiting, diarrhea or constipation. Patient does describe difficulty urination with slow stream. Patient does have a previous cardiac history having had a previous nuclear med stress test in June 2015 finding deficits in the inferior inferior apical wall with prior documentation of abnormal EKG with Q-waves inferiorly with right bundle-branch block. His last echocardiogram for record was December 2016 documenting of 50-55% EF left ventricle normal in size and function and RV dilation. Upon arrival in the ER the patient is severely tachypneic and dusky per ER documentation. He is afebrile with temperature 97.1?, heart rate of 129, blood pressure 139/101, respiratory rate of 58 saturating 98% on 15 liter/minute via non-rebreather mask. Immediate interventions include initiation of BiPAP therapy, nitroglycerin and Lasix. Chest x-ray is obtained finding cardiomyopathy with diffuse interstitial prominence, patchy bibasilar infiltrates concerning for pulmonary edema and/or pneumonia. On lab analysis the patient has elevated white count at 17.5 with increased absolute neutrophils at 13,700, increased monocytes at 1300, hemoglobin of 14.7, hematocrit 45.2 and platelets of 190. He has a PT 11.5, INR of 1.0 and a PTT of 32. His electrolytes are within normal limits he has a BUN of 22 with a creatinine of 1.67. His EGFR is 40.6. His nonfasting glucose is 258. His liver functions are all within normal limits. Has lactic acid of 2.1, troponin elevated 0.071, proBNP of 2310 and procalcitonin is less than 0.05. Twelve lead EKG is obtained finding paced rhythm, a sense and V paced. The patient's respiratory status stabilized with BiPAP therapy and had modest response to diuresis with 40 mg of Lasix. There was concern related to white be tachycardia being either AFib with aberrancy versus V-tach and patient was started on amiodarone due to stable vital signs without change in presentation and was subsequently cardioverted with attempts x2 without change in rhythm. Dr. Yee was consulted and the pacemaker was interrogated revealing the patient was then sinus tachycardia. Per report from the ED provider Dr. Yee felt the patient's dizzy and was not related to arrhythmia and is aware of the troponin in the setting of increased creatinine and elevated BNP. The patient is started on Zosyn in the ER for pneumonia and admitted to the hospitalist service. PCP: Kathy Hoffmann Patient History Medical History (Updated 08/26/20 @ 22:21 by LOYD Smith) Coronary artery disease Diabetes GERD (gastroesophageal reflux disease) Hyperlipidemia Hypertension Surgical History (Updated 08/26/20 @ 22:21 by LOYD Smith) History of colonoscopy History of local excision of skin lesion History of permanent cardiac pacemaker placement History of skin graft Family & Social History Family history unavailable: No (Family history is unavailable due to patient's medical condition, dyspnea) Tobacco & Substance use: Smoking Status Never smoker Substance Use Type does not use Meds Home Medications and Allergies Home Medications Medication Instructions Recorded Confirmed Type multivitamin 1 tab PO DAILY #0 11/21/11 08/26/20 History albuterol sulfate [Ventolin HFA] 2 puff INH PRN PRN #0 08/23/17 08/26/20 History glipizide 5 mg PO QAM #0 08/23/17 08/26/20 History hydrochlorothiazide 12.5 mg PO DAILY #0 08/23/17 08/26/20 History losartan 100 mg PO DAILY #0 08/23/17 08/26/20 History zolpidem 5 mg PO BEDTIME PRN #0 08/23/17 08/26/20 History amlodipine 10 mg PO DAILY 12/17/18 08/26/20 History aspirin 81 mg PO DAILY 12/17/18 08/26/20 History atorvastatin 80 mg PO DAILY 12/17/18 08/26/20 History buspirone 30 mg PO BID 12/17/18 08/26/20 History carvedilol 25 mg PO BID 12/17/18 08/26/20 History fluticasone propionate 1 spray INTRANASAL DAILY 12/17/18 08/26/20 History glipizide 10 mg PO QPM 12/17/18 08/26/20 History lidocaine 3 patch TOPICAL DAILY 12/17/18 08/26/20 History omeprazole 40 mg PO DAILY 12/17/18 08/26/20 History oxybutynin chloride 5 mg PO TID 12/17/18 08/26/20 History testosterone cypionate 300 mg IM Q3W 12/17/18 08/26/20 History tramadol 50 mg PO Q6H PRN 12/17/18 08/26/20 History Allergies Allergy/AdvReac Type Severity Reaction Status Date / Time Sulfa (Sulfonamide Allergy Severe RASH Verified 08/26/20 17:45 Antibiotics) [SULFA (SULFONAMIDE ANTIBIOTICS)] iodine [IODINE] Allergy Mild RASH Verified 08/26/20 17:45 Review of Systems Review of Systems ROS: Yes All systems reviewed with the patient and are negative except as otherwise documented Exam Vital Signs (past 8 hours): - 08/26/20 17:47 08/26/20 17:55 08/26/20 17:56 Temperature 97.1 F L Pulse Rate 129 H 129 H 129 H Respiratory Rate 58 H 28 H 26 H Blood Pressure 139/101 H 184/88 H Pulse Oximetry 98 100 100 08/26/20 18:00 08/26/20 18:06 08/26/20 18:10 Temperature Pulse Rate 128 H 124 H 122 H Respiratory Rate 28 H 42 H 35 H Blood Pressure 164/74 H 147/86 H 148/83 H Pulse Oximetry 100 100 99 08/26/20 18:17 08/26/20 18:20 08/26/20 18:24 Temperature Pulse Rate 121 H 120 H 123 H Respiratory Rate 33 H 34 H 35 H Blood Pressure 146/84 H 132/75 144/72 H Pulse Oximetry 100 100 99 08/26/20 18:26 08/26/20 18:30 08/26/20 18:32 Temperature Pulse Rate 122 H 122 H 123 H Respiratory Rate 37 H 40 H 37 H Blood Pressure 125/59 L 129/89 Pulse Oximetry 100 100 100 08/26/20 18:35 08/26/20 18:38 08/26/20 18:40 Temperature Pulse Rate 125 H 124 H 124 H Respiratory Rate 34 H 32 H Blood Pressure 143/74 H 143/74 H 142/67 H Pulse Oximetry 99 99 08/26/20 18:45 08/26/20 18:50 08/26/20 18:55 Temperature Pulse Rate 120 H 116 H 116 H Respiratory Rate 32 H 30 H 29 H Blood Pressure 129/77 126/75 129/74 Pulse Oximetry 99 98 100 08/26/20 19:00 08/26/20 19:05 08/26/20 19:10 Temperature Pulse Rate 117 H 112 H 114 H Respiratory Rate 31 H 26 H 28 H Blood Pressure 128/68 116/56 L 132/61 Pulse Oximetry 99 98 98 08/26/20 19:15 08/26/20 19:17 08/26/20 19:20 Temperature Pulse Rate 102 H 100 H 99 H Respiratory Rate 51 H 33 H 33 H Blood Pressure 86/47 L 102/57 L 93/55 L Pulse Oximetry 96 95 99 08/26/20 19:25 08/26/20 19:28 08/26/20 19:30 Temperature Pulse Rate 99 H 98 H Respiratory Rate 28 H 26 H Blood Pressure 93/52 L 93/52 L 104/57 L Pulse Oximetry 97 100 08/26/20 19:35 08/26/20 19:40 08/26/20 19:41 Temperature Pulse Rate 99 H 102 H Respiratory Rate 26 H 38 H Blood Pressure 96/53 L 107/74 107/74 Pulse Oximetry 98 90 L 08/26/20 19:45 08/26/20 19:50 08/26/20 19:55 Temperature Pulse Rate 99 H 98 H 100 H Respiratory Rate 25 H 28 H 27 H Blood Pressure 100/67 106/66 113/68 Pulse Oximetry 96 98 97 08/26/20 20:00 08/26/20 20:05 08/26/20 20:10 Temperature Pulse Rate 99 H 99 H 100 H Respiratory Rate 33 H 28 H 36 H Blood Pressure 113/70 97/59 L 108/66 Pulse Oximetry 97 97 97 08/26/20 20:14 08/26/20 20:15 08/26/20 20:20 Temperature Pulse Rate 101 H 100 H Respiratory Rate 35 H 34 H Blood Pressure 115/68 115/68 112/70 Pulse Oximetry 97 95 08/26/20 21:05 Temperature 99.2 F Pulse Rate 112 H Respiratory Rate 30 H Blood Pressure 133/86 Pulse Oximetry 93 Fraction of Inspired Oxygen 50 Oxygen Delivery Method Non -Rebreather Narrative Exam Narrative: GENERAL APPEARANCE: well developed, obese male with a BMI of 33.2, sitting upright in bed anxious and dyspneic on BiPAP. HEENT: Normocephalic, PERRLA, conjunctiva clear, EOMs intact without nystagmus, no rhinorrhea, mucous membranes are dry and pink with dried oral secretions. NECK/THYROID: neck supple, no JVD, no carotid bruit, no thyromegaly, trachea midline. LYMPH NODES: no cervical or supraclavicular lymphadenopathy. SKIN: [place], warm and dry, no visible lesions, rashes. HEART: Wide beat, tachycardic paced rhythm, S1-S2, unable to further discern heart tones due to degree of coarse breath sounds, brisk capillary refill, trace peripheral edema LUNGS: Marked coarseness bilaterally anterior, coarseness with crackles and end-expiratory wheezing posteriorly, no spontaneous cough. CHEST: Tachypneic, symmetrical movement, no retractions, fair tidal volume. ABDOMEN: Soft, protuberant, dull to percussion, no abdominal tenderness or organomegaly, active bowel tones, indwelling Blake catheter with pale yellow urine. BACK: Normal curvature, nontender to palpation. EXTREMITIES: moves all extremities, strength is 5/5 and symmetrical, surgical scarring with tissue loss posterior medial right ankle, well-healed surgical scar right thigh NEUROLOGIC: AAO x person place, no focal neurologic deficits, cranial nerves II-XII grossly intact, sensation intact to light touch, hearing grossly normal to speech. PSYCH: Anxious, restless and agitated Objective Labs Result Diagrams: 08/26/20 18:00 08/26/20 18:00 Labs: Laboratory Results - last 24 hr 08/26/20 08/26/20 08/26/20 18:00 18:00 18:00 WBC 17.4 H RBC 5.43 Hgb 14.7 Hct 45.2 MCV 83.2 MCH 27.1 MCHC 32.5 RDW 14.8 Plt Count 190 Neut % (Auto) 78.8 H Lymph % (Auto) 12.3 L Winston % (Auto) 7.4 Eos % (Auto) 1.2 L Baso % (Auto) 0.3 Neut # (Auto) 38956 H Lymph # (Auto) 2100 Winston # (Auto) 1300 H Eos # (Auto) 200 Baso # (Auto) 100 PT 11.5 INR 1.0 APTT 32 D Sodium Potassium Chloride Carbon Dioxide BUN Creatinine Estimated GFR BUN/Creatinine Ratio Glucose Lactate Calcium Magnesium 1.8 Total Bilirubin AST ALT Alkaline Phosphatase Total Creatine Kinase 101 CK-MB (CK-2) 1.37 CK-MB (CK-2) Rel Index 1.4 L Troponin I 0.071 H NT-Pro-B Natriuret Pep 2310 H Total Protein Albumin Globulin Albumin/Globulin Ratio Procalcitonin COVID-19 PCR 08/26/20 08/26/20 08/26/20 18:00 18:00 18:00 WBC RBC Hgb Hct MCV MCH MCHC RDW Plt Count Neut % (Auto) Lymph % (Auto) Winston % (Auto) Eos % (Auto) Baso % (Auto) Neut # (Auto) Lymph # (Auto) Winston # (Auto) Eos # (Auto) Baso # (Auto) PT INR APTT Sodium 139 Potassium 4.1 Chloride 107 Carbon Dioxide 24 BUN 22 H Creatinine 1.67 H Estimated GFR 40.6 L BUN/Creatinine Ratio 13.2 Glucose 258 H Lactate 2.1 Calcium 8.9 Magnesium Total Bilirubin 0.6 AST 26 ALT 29 Alkaline Phosphatase 84 Total Creatine Kinase CK-MB (CK-2) CK-MB (CK-2) Rel Index Troponin I NT-Pro-B Natriuret Pep Total Protein 7.3 Albumin 4.0 Globulin 3.3 Albumin/Globulin Ratio 1.2 Procalcitonin < 0.05 COVID-19 PCR 08/26/20 08/26/20 18:00 20:45 WBC RBC Hgb Hct MCV MCH MCHC RDW Plt Count Neut % (Auto) Lymph % (Auto) Winston % (Auto) Eos % (Auto) Baso % (Auto) Neut # (Auto) Lymph # (Auto) Winston # (Auto) Eos # (Auto) Baso # (Auto) PT INR APTT Sodium Potassium Chloride Carbon Dioxide BUN Creatinine Estimated GFR BUN/Creatinine Ratio Glucose Lactate 1.2 Calcium Magnesium Total Bilirubin AST ALT Alkaline Phosphatase Total Creatine Kinase CK-MB (CK-2) CK-MB (CK-2) Rel Index Troponin I NT-Pro-B Natriuret Pep Total Protein Albumin Globulin Albumin/Globulin Ratio Procalcitonin COVID-19 PCR Negative Assessment & Plan Assessment & Plan narrative: This is a 70-year-old male patient with a past medical history significant for coronary artery disease, status post pacemaker implantation, hypertension, hyperlipidemia, type 2 diabetes and GERD who presents to the ER with what sounds to be feeling ill for several days with an acute onset of dyspnea and coughing this afternoon following laying down for a nap. 1. Acute respiratory failure with hypoxia and hypercarbia, present on admission, active -patient presents to the ER with acute respiratory failure of unclear etiology, flash pulmonary edema, decompensated heart failure, cardiac arrhythmia and pulmonary infection oral considered. -in the ER the patient was started on BiPAP with stabilization respiratory status, patient continued in a wide beat tachycardia, received amiodarone without change and subsequently was cardioverted x2 without change. -ABG demonstrates uncompensated respiratory acidosis with pH of 7.31, pCO2 48.5, PO2 146, bicarb 25 with a base excess of -2. PF ratio is 182. -chest x-ray identifies cardiomyopathy with diffuse interstitial prominence with patchy by the basilar infiltrates consistent with pulmonary edema and/or pneumonia. -troponin is 0.071 (creatinine 1.67), proBNP is 2310, cardiology is consulted who believes this is not related to cardiac rhythm. -Patient is treated for infectious process as below. -will attempt transition to he did high-flow oxygen in the morning with follow-up repeat ABG. 2. Community-acquired pneumonia, bilateral lower lobes, present on admission, active. -patient is a poor historian and denies symptoms prior to waking from his nap the family states he has been feeling poorly for several days. Patient denies fevers chills nausea vomiting cough or wheezing. -patient with coarse breath sounds bilaterally, weak cough effort with no spontaneous cough. -patient has elevated white count at 17.5 with absolute neutrophils at 13,700 and monocytes at 1300, procalcitonin is less than 0.05. Chest x-ray reveals diffuse interstitial prominence with patchy bibasilar infiltrates. -the patient received Zosyn IV in the ER ordered Zosyn 4.5 mg IV every 6 hours. Will recheck blood count and procalcitonin with morning labs. 3. Acute on chronic systolic heart failure with borderline low ejection fraction, chronic, active -most recent echo found was December 2016 finding an EF of 50-55%, LV with normal structure and function, RV with dilation. -patient has elevated BNP at 2310 and presents with bilateral coarse breath sounds anterior and posteriorly with bibasilar crackles posteriorly with end-expiratory wheezing. Trace peripheral edema -in the ER the patient received 40 mg Lasix IV with modest diuresis monitor via Blake catheter. Ordered additional 20 mg of Lasix IV, ordered Lasix 40 mg in the morning. -patient is suspicious for flash pulmonary edema due to the abruptness of onset as well as a similar reoccurrence of acute dyspnea upon arrival in the intensive care unit mi on BiPAP. -ordered nitroglycerin 1 in topical paste now. -will continue the patient's home regimen of hydrochlorothiazide 12.5 mg daily. -patient is placed on a fluid restriction 1500 cc daily. -echocardiogram in the morning 4. Coronary artery disease, chronic, stable -patient with a history of heart disease, documented inferior inferior apical wall deficits on nuclear med stress test June 2015. -prior documentation of Q-waves in the inferior leads with a right bundle branch block now presenting with sinus tachycardia with atrial sensing and ventricular pacing. -Dr. Yee, cardiology is contacted through the ER and with pacemaker interrogation does not believe patient's dyspnea is related to rhythm disturbance, the patient is in a sinus tachycardia. -will continue home regimen of aspirin, amlodipine and carvedilol. 5. Acute kidney injury, present on admission, active. -patient has a serum creatinine of 1.67 on admission labs with a BUN of 22, baseline is 1.0 (05/16/2020). -elevated creatinine believed to be related to heart failure. -continue diuresis with Lasix and re-evaluate chemistries in the morning 6. Diabetes type 2 uncontrolled, chronic, stable. -Patient takes glipizide 5 mg twice daily at home. -serum glucose on admission labs is 258. Elevation likely in the setting of infection will hold glipizide. -ordered fingerstick blood sugars a.c. and hs, coverage with low-dose correctional insulin. 7. Essential hypertension, chronic, stable. -blood pressure stable following admission blood pressure of 139/101, improved to 136/72 on admission to ICU. -patient is being diuresed and has topical nitroglycerin further reducing blood pressure. -continue patient's home regimen of amlodipine and carvedilol, will hold losartan due to acute kidney injury. 8. Hyperlipidemia, chronic, stable. -will continue home regimen of atorvastatin 80 mg daily. VTE prophylaxis: Enoxaparin 40 mg daily IV fluid: Saline lock Diet: Heart healthy, small consistent carbohydrate, 2 g low-sodium with 1500 cc fluid restriction. Code status: Full Code, the patient designates his daughter to be his surrogate decision maker. The patient is admitted to the hospital to the severity of his respiratory distress requiring further treatment and interventions with a complex treatment plan to be event complications or adverse events. The patient is admitted to the ICU inpatient status with expected length of stay to be greater than 2 midnights. COVID-19 COVID-19 status: Negative Result date/Date tested (Pos, Neg/Pending): 08/26/20 Scores [facility] [place] coma scale eye opening: Spontaneous Maria Elena coma scale verbal response: Confused [place] coma scale motor response: Obey commands [place] coma scale total score: 14
[2020-08-26] MEDS: NITROGLYCERIN OINT 1 INCH/GM OINT...G. TOP (21:46)
[2020-08-26] MEDS: FUROSEMIDE 20 MG/2 ML VIAL IV (21:46)
[2020-08-26] MEDS: DOCUSATE 100 MG CAPSULE PO (21:48)
--- NOTE | 2020-08-26 21:58 | DI.ECHO.S_ITS ---
[facility] +---------+ : : [address] : [place], [place] : : : : [id number] : : : : Phone: [phone]+ Echocardiogram Report + + :Name: RAISA RICKS Study Date: 08/27/2020 Height: 69 in : :[facility] Weight: 224 lb : : Gender: Male BSA: 2.2 m2 : :: 1950 Age: 70 yrs BP: 113/73 mmHg: :Reason For Study: Congestive Heart Failure/ Pulmonary edema : :Ordering Physician: Karishma : :Hospitalist Performed By: Ana Page : :Referring: AGBY BROWN : + + Interpretation Summary The patient has a paced rhythm (new). The left ventricle is moderate-severely dilated. This is Increased compared to the previous study. The ejection fraction is estimated to be 25-30%. Left ventricular function has significantly worsened compared to the previous exam. Except basal anterolateral and basal posterior lateral segments rest of the LV segments are severely hypokinetic to akinetic. Inferior wall, apex and mid to distal posterior lateral wall appears to be akinetic. Wall motion abnormalities are new. The right ventricle is mild to moderately dilated. Right ventricular systolic function is mildly reduced. There is a pacemaker lead in the right ventricle. There is mild mitral regurgitation. The ascending aorta is mildly enlarged. 3.9 cm in diameter. Previously it was 3.7 cm. The IVC is dilated (diameter is greater than 2.1 cm) yet it collapses greater than 50% with a sniff. This suggests a right atrial pressure of 8 mm Hg. Procedure: A two-dimensional transthoracic echocardiogram with color flow and Doppler was performed. The study quality was technically adequate. Comparison is made with the echocardiogram of 01/03/2019. The patient has a paced rhythm. Left Ventricle: The estimated left ventricular end diastolic volume is 213 ml. The left ventricle is moderate-severely dilated. This is Increased compared to the previous study. There is no thrombus. A false chord is noted (normal variant). The ejection fraction is estimated to be 25-30%. Left ventricular function has significantly worsened compared to the previous exam. Except basal anterolateral and basal posterior lateral segments rest of the LV segments are severely hypokinetic to akinetic. Inferior wall, apex and mid to distal posterior lateral wall appears to be akinetic. Wall motion abnormalities are new. Diastolic function could not be accurately assessed due to paced rhythm. Right Ventricle: There is a pacemaker lead in the right ventricle. The right ventricle is mild to moderately dilated. A calcified moderator band is seen in the right ventricle. Right ventricular systolic function is mildly reduced. Atria: Both atria are severely dilated. Both atria have significantly increased in size since the prior echo exam. There is no Doppler evidence for an interatrial shunt. Mitral Valve: There is mild mitral annular calcification. The mitral valve leaflets are slightly calcified. There is mild mitral regurgitation. Aortic Valve: The aortic valve is trileaflet. The aortic valve opens well. The aortic valve is slightly calcified. There is no aortic valve stenosis. There is trace aortic regurgitation. Tricuspid Valve: The tricuspid valve is normal. There is trace tricuspid regurgitation. Pulmonary artery pressures cannot be estimated because of the lack of a measurable TR jet velocity. Pulmonic Valve: The pulmonic valve is not well visualized. There is trace pulmonic regurgitation. Great Vessels: The aortic root is normal size. The ascending aorta is mildly enlarged. The pulmonary artery is not well visualized, but is probably normal size. The IVC is dilated (diameter is greater than 2.1 cm) yet it collapses greater than 50% with a sniff. This suggests a right atrial pressure of 8 mm Hg. Pericardium/ Pleura There is no pericardial effusion. There is no pleural effusion. MMode/2D Measurements & Calculations LVIDd: 6.7 cm LVOT diam: 2.6 cm LVIDs: 5.4 cm Ao root diam: 3.8 cm FS: 19.3 % asc Aorta Diam: 3.9 cm EPSS: 1.1 cm IVSd: 0.71 cm LVPWd: 0.98 cm LV herron. diameter/BSA (cm/m^2): 3.1 LV sys. diameter/BSA (cm/m^2): 2.5 LA A2 area: 26.9 cm2 RA long axis: 5.8 cm LA A4 area: 28.7 cm2 RA area: 27.0 cm2 LA length (vol): 6.2 cm RA vol: 106.5 ml LA vol: 105.5 ml RA : 49.1 ml/m2 LA vol index: 48.7 ml/m2 IVC diam: 2.5 cm RVD1 (basal): 5.4 cm Doppler Measurements & Calculations Ao V2 max: 137.6 cm/sec LVOT Max Gary: 60.9 cm/sec Ao V2 mean: 94.3 cm/sec LV V1 max P.5 mmHg Ao max P.6 mmHg LV V1 VTI: 9.6 cm Ao mean P.0 mmHg ALAYNA(I,D): 2.6 cm2 Ao V2 VTI: 20.7 cm ALAYNA(V,D): 2.4 cm2 sev ratio: 0.47 ALAYNA indexed to BSA (cm^2/m^2): 1.2 PA V2 max: 62.8 cm/sec SV(LVOT): 53.1 ml PA V2 mean: 41.9 cm/sec PA mean P.79 mmHg PA Accel Time: 0.11 sec Reading Physician:03:42 PM
[2020-08-26 22:10] LABS: HCO3 ABG 25 mmol/L (22-26); Oxygen Saturation ABG 99 % (95-100); PCO2 ABG 48.5 mmHg (35-45); PO2 ABG 146 mmHg (80-100); TCO2 ABG 26 mmol/L (21-31); pH ABG 7.31 (7.35-7.45)
[2020-08-26 22:11] LABS: Fractionated Inspired Oxygen 0.8
[2020-08-26 23:21] LABS: Adenovirus Not Detected (Not Detect); Bordetella pertussis Not Detected (Not Detect); Chlamydophila pneumoniae Not Detected (Not Detect); Coronavirus 229E Not Detected (Not Detect); Coronavirus HKU1 Not Detected (Not Detect); Coronavirus NL 63 Not Detected (Not Detect); Coronavirus OC43 Not Detected (Not Detect); Human Metapneumovirus Not Detected (Not Detect); Human Rhinovirus/Enterovirus Not Detected (Not Detect); Influenza A Not Detected (Not Detect); Influenza B Not Detected (Not Detect); Mycoplasma pneumoniae Not Detected (Not Detect); Parainfluenza Virus 1 Not Detected (Not Detect); Parainfluenza Virus 2 Not Detected (Not Detect); Parainfluenza Virus 3 Not Detected (Not Detect); Parainfluenza Virus 4 Not Detected (Not Detect); Respiratory Syncytial Virus Not Detected (Not Detect); SARS- CoV-2 Not Detected (Not Detecte)
--- NOTE | 2020-08-26 23:21 | PC.NURSE ---
Pt arrived to rm 227 per stretcher from ED on BIPAP @ 2054. Initially restless, diaphoretic complaining of not being able to breathe. FIO2 increased from 40% ot 50% - Lasix 20mg IVP given and nitropaste 1 placed on anterior chest. Pt settled and was able to cooperate with admission assessment and answered questions appropriately. Monitor shows VPaced rhythm at 110-120. SBP 120s -130s. He denies pain and is dozing at intervals. Will continue to monitor.
[2020-08-26 23:40] LABS: Troponin I 0.166 ng/mL (0.01-0.034)
[2020-08-27] VITALS (16 sets, daily range): BP systolic 102–127; BP diastolic 55–79; PULSE 91–120; RESP 18–33; TEMP 36.2–36.9; O2SAT 94–100
[2020-08-27] MEDS: MORPHINE 2 MG/ML INJ IV ×2 (00:01→04:45)
[2020-08-27] MEDS: BUSPIRONE 5 MG TABLET 30 MG PO ×2 (00:41→08:32)
[2020-08-27] MEDS: PIPERACILLIN-TAZO 4.5 GM/100 ML FROZ.PIGGY IV ×4 (01:48→19:27)
[2020-08-27 05:26] LABS: Add Manual Diff / Slide Review NO; Basophils Absolute Auto 0 /uL (0-100); Basophils Percent Auto 0.3 % (0-2); Eosinophils Absolute Auto 0 /uL (0-450); Eosinophils Percent Auto 0.2 % (2-4); Hematocrit 42.1 % (41-53); Hemoglobin 13.8 g/dL (13.5-17.5); Lymphocytes Absolute Auto 2100 /uL (1100-4500); Lymphocytes Percent Auto 13.9 % (25-40); Mean Corpuscular HGB Conc 32.9 % (30-36); Mean Corpuscular Hemoglobin 27.3 PG (26-34); Mean Corpuscular Volume 83.1 fL (80-100); Monocytes Absolute Auto 1500 /uL (0-900); Monocytes Percent Auto 10.1 % (3-14); Neutrophils Absolute Auto 11600 /uL (1500-7000); Neutrophils Percent Auto 75.5 % (50-75); Platelet Count 160 X10^3/uL (150-400); Red Blood Cell Count 5.06 X10^6/uL (4.5-5.9); Red Cell Distribution Width 14.5 % (11.6-14.8); White Blood Cell Count 15.3 X10^3/uL (4.5-11.0)
[2020-08-27 05:27] LABS: Creatine Kinase 72 U/L (55-170)
[2020-08-27 05:28] LABS: Magnesium 1.9 mg/dL (1.6-2.3)
[2020-08-27 05:29] LABS: BUN Creatinine Ratio 17.2 (6-22); Blood Urea Nitrogen 25 mg/dL (9-20); Carbon Dioxide 32 mmol/L (22-32); Chloride 108 mmol/L (98-107); Estimated Glomerular Filt Rate 47.8 mL/min (>60); Glucose 152 mg/dL (80-110); HEMOLYSIS < 15 (0-50); Potassium 4.3 mmol/L (3.4-5.1); Sodium 144 mmol/L (137-145)
[2020-08-27 05:37] LABS: NT-proBNP (BNP-Adult 18+) 4390 pg/mL (<125)
[2020-08-27 05:39] LABS: Hemoglobin A1C% w Est Avg Glu 7.4 % (4.0-6.0)
[2020-08-27 05:44] LABS: Procalcitonin 1.29 ng/mL (<0.5)
[2020-08-27 06:10] LABS: TSH w/ Reflex to FT4 0.79 uIU/mL (0.47-4.68)
[2020-08-27] MEDS: INSULIN ASPART 100 UNIT/ML INSULN PEN SUBCUT (08:14)
[2020-08-27] MEDS: AZITHROMYCIN 500 MG in DEXTROSE 5% IN WATER 250 ML IV (08:15)
[2020-08-27] MEDS: FUROSEMIDE 40 MG/4 ML VIAL IV (08:17)
[2020-08-27] MEDS: LOSARTAN 50 MG TABLET 100 MG PO (08:17)
[2020-08-27] MEDS: ENOXAPARIN 40 MG/0.4 ML SYRINGE SUBCUT (08:17)
[2020-08-27] MEDS: hydroCHLOROthiazide 25 MG TABLET 12.5 MG PO (08:18)
[2020-08-27] MEDS: ASPIRIN 81 MG CHEW TAB PO (08:18)
[2020-08-27] MEDS: AMLODIPINE 5 MG TABLET 10 MG PO (08:18)
[2020-08-27] MEDS: PANTOPRAZOLE 40 MG VIAL IV (08:18)
[2020-08-27] MEDS: DOCUSATE 100 MG CAPSULE PO ×2 (08:18→20:26)
[2020-08-27] MEDS: ATORVASTATIN 20 MG TABLET 80 MG PO (08:18)
[2020-08-27] MEDS: guaiFENesin ER 600 MG TAB PO ×2 (08:18→20:26)
[2020-08-27] MEDS: ACETAMINOPHEN 325 MG TABLET 650 MG PO ×2 (08:24→14:12)
[2020-08-27] MEDS: carvediloL 12.5 MG TABLET 25 MG PO ×2 (08:33→20:24)
[2020-08-27 09:48] LABS: HCO3 ABG 25 mmol/L (22-26); Oxygen Saturation ABG 92 % (95-100); PO2 ABG 62 mmHg (80-100); TCO2 ABG 26 mmol/L (21-31); pH ABG 7.42 (7.35-7.45)
--- NOTE | 2020-08-27 09:50 | PC.NURSE ---
Addendum entered by Kylah Coker R.N. 08/27/20 14:44: able to wean down to 2l nc with spo2 98% and echo complete Original Note: PT IS DROWSY BUT ORIENTED, LUNGS COARSE AND RHONCHOROUS- INITIALLY ON BIPAP AT 50% THEN DECREASED TO 40% PRIOR TO AM MEAL HE WAS PLACED ON 5L HFNC WITH SPO2 MID-HIGH 90'S- RT THEN DECREASED HIM TO 4L HFNC AND PERFORMED ABG- WHICH WAS IMPROVED FROM PREVIOUS GAS. HE IS V- PACED WITH WHAT APPEARS TO BE AFIB UNDERLYING RHYTHM, NO PERIPHERAL EDEMA NOTED- BUT HE DOES ENDORSE A PRODUCTIVE COUGH- TYLENOL GIVEN FOR BACK DISCOMFORT THIS AM
--- NOTE | 2020-08-27 10:05 | P.PN_ITS ---
Subjective Subjective Date Patient Seen: 08/27/20 Interval history: Patient is a 70-year-old male with history of CAD, pacemaker, type 2 diabetes, hypertension, GERD presented to ER with acute dyspnea. Patient was noted to have pneumonia and CHF and was started on BiPAP. We were able to discontinue BiPAP this a.m. and start high-flow nasal cannula at 5 L. Patient denies chest pain or dyspnea this morning. Exam Vital Signs (past 8 hours): - 08/27/20 03:00 08/27/20 03:02 08/27/20 03:46 Temperature 97.8 F Pulse Rate 102 H Respiratory Rate 30 H Blood Pressure 127/77 120/65 Pulse Oximetry 99 08/27/20 05:47 08/27/20 07:22 08/27/20 08:17 Temperature 98.5 F Pulse Rate 105 H 112 H Respiratory Rate 27 H Blood Pressure 120/55 L 123/79 123/79 Pulse Oximetry 99 08/27/20 08:33 08/27/20 09:50 Temperature Pulse Rate 113 H 110 H Respiratory Rate 22 Blood Pressure Pulse Oximetry 94 Fraction of Inspired Oxygen 50 Oxygen Delivery Method High Flow Nasal Cannula Oxygen Flow Rate 5 Narrative Exam Narrative: General: Alert and cooperative male in no acute distress Lungs: Breathing nonlabored, slight coarseness bilaterally with crackles in bases Heart: Paced rhythm with mild tachycardia Extremities: No edema Neurological: Affect normal, nonfocal Objective Labs Result Diagrams: 08/27/20 04:35 08/27/20 04:35 Labs: Laboratory Results - last 24 hr 08/26/20 08/26/20 08/26/20 18:00 18:00 18:00 WBC 17.4 H RBC 5.43 Hgb 14.7 Hct 45.2 MCV 83.2 MCH 27.1 MCHC 32.5 RDW 14.8 Plt Count 190 Neut % (Auto) 78.8 H Lymph % (Auto) 12.3 L [place] % (Auto) 7.4 Eos % (Auto) 1.2 L Baso % (Auto) 0.3 Neut # (Auto) 18019 H Lymph # (Auto) 2100 [place] # (Auto) 1300 H Eos # (Auto) 200 Baso # (Auto) 100 PT 11.5 INR 1.0 APTT 32 D ABG pH ABG pCO2 ABG pO2 ABG HCO3 ABG Total CO2 ABG O2 Saturation ABG Base Excess FiO2 Sodium Potassium Chloride Carbon Dioxide BUN Creatinine Estimated GFR BUN/Creatinine Ratio Glucose Hemoglobin A1c Lactate Calcium Magnesium 1.8 Total Bilirubin AST ALT Alkaline Phosphatase Total Creatine Kinase 101 CK-MB (CK-2) 1.37 CK-MB (CK-2) Rel Index 1.4 L Troponin I 0.071 H NT-Pro-B Natriuret Pep 2310 H Total Protein Albumin Globulin Albumin/Globulin Ratio Procalcitonin TSH Nasal Screen MRSA (PCR) Chlamy pneumoniae PCR Adenovirus (PCR) B.parapertussis DNA PCR Coronavirus OC43 (PCR) Coronavirus HKU1 (PCR) Coronavirus 229E (PCR) COVID-19 PCR Coronavirus NL63 (PCR) Human Metapneumovir PCR Influenza Type A (PCR) Influenza Type B (PCR) M. pneumoniae (PCR) Parainfluenza 1 (PCR) Parainfluenza 2 (PCR) Parainfluenza 3 (PCR) Parainfluenza 4 (PCR) RSV (PCR) Entero/Rhino (PCR) 08/26/20 08/26/20 08/26/20 18:00 18:00 18:00 WBC RBC Hgb Hct MCV MCH MCHC RDW Plt Count Neut % (Auto) Lymph % (Auto) [place] % (Auto) Eos % (Auto) Baso % (Auto) Neut # (Auto) Lymph # (Auto) [place] # (Auto) Eos # (Auto) Baso # (Auto) PT INR APTT ABG pH ABG pCO2 ABG pO2 ABG HCO3 ABG Total CO2 ABG O2 Saturation ABG Base Excess FiO2 Sodium 139 Potassium 4.1 Chloride 107 Carbon Dioxide 24 BUN 22 H Creatinine 1.67 H Estimated GFR 40.6 L BUN/Creatinine Ratio 13.2 Glucose 258 H Hemoglobin A1c Lactate 2.1 Calcium 8.9 Magnesium Total Bilirubin 0.6 AST 26 ALT 29 Alkaline Phosphatase 84 Total Creatine Kinase CK-MB (CK-2) CK-MB (CK-2) Rel Index Troponin I NT-Pro-B Natriuret Pep Total Protein 7.3 Albumin 4.0 Globulin 3.3 Albumin/Globulin Ratio 1.2 Procalcitonin < 0.05 TSH Nasal Screen MRSA (PCR) Chlamy pneumoniae PCR Adenovirus (PCR) B.parapertussis DNA PCR Coronavirus OC43 (PCR) Coronavirus HKU1 (PCR) Coronavirus 229E (PCR) COVID-19 PCR Coronavirus NL63 (PCR) Human Metapneumovir PCR Influenza Type A (PCR) Influenza Type B (PCR) M. pneumoniae (PCR) Parainfluenza 1 (PCR) Parainfluenza 2 (PCR) Parainfluenza 3 (PCR) Parainfluenza 4 (PCR) RSV (PCR) Entero/Rhino (PCR) 08/26/20 08/26/20 08/26/20 18:00 18:53 20:45 WBC RBC Hgb Hct MCV MCH MCHC RDW Plt Count Neut % (Auto) Lymph % (Auto) [place] % (Auto) Eos % (Auto) Baso % (Auto) Neut # (Auto) Lymph # (Auto) [place] # (Auto) Eos # (Auto) Baso # (Auto) PT INR APTT ABG pH 7.31 L ABG pCO2 48.5 H ABG pO2 146 H ABG HCO3 25 ABG Total CO2 26 ABG O2 Saturation 99 ABG Base Excess -2.0 FiO2 0.8 Sodium Potassium Chloride Carbon Dioxide BUN Creatinine Estimated GFR BUN/Creatinine Ratio Glucose Hemoglobin A1c Lactate 1.2 Calcium Magnesium Total Bilirubin AST ALT Alkaline Phosphatase Total Creatine Kinase CK-MB (CK-2) CK-MB (CK-2) Rel Index Troponin I NT-Pro-B Natriuret Pep Total Protein Albumin Globulin Albumin/Globulin Ratio Procalcitonin TSH Nasal Screen MRSA (PCR) Chlamy pneumoniae PCR Adenovirus (PCR) B.parapertussis DNA PCR Coronavirus OC43 (PCR) Coronavirus HKU1 (PCR) Coronavirus 229E (PCR) COVID-19 PCR Negative Coronavirus NL63 (PCR) Human Metapneumovir PCR Influenza Type A (PCR) Influenza Type B (PCR) M. pneumoniae (PCR) Parainfluenza 1 (PCR) Parainfluenza 2 (PCR) Parainfluenza 3 (PCR) Parainfluenza 4 (PCR) RSV (PCR) Entero/Rhino (PCR) 08/26/20 08/26/20 08/26/20 21:00 21:00 23:10 WBC RBC Hgb Hct MCV MCH MCHC RDW Plt Count Neut % (Auto) Lymph % (Auto) [place] % (Auto) Eos % (Auto) Baso % (Auto) Neut # (Auto) Lymph # (Auto) [place] # (Auto) Eos # (Auto) Baso # (Auto) PT INR APTT ABG pH ABG pCO2 ABG pO2 ABG HCO3 ABG Total CO2 ABG O2 Saturation ABG Base Excess FiO2 Sodium Potassium Chloride Carbon Dioxide BUN Creatinine Estimated GFR BUN/Creatinine Ratio Glucose Hemoglobin A1c Lactate Calcium Magnesium Total Bilirubin AST ALT Alkaline Phosphatase Total Creatine Kinase CK-MB (CK-2) CK-MB (CK-2) Rel Index Troponin I 0.166 H* NT-Pro-B Natriuret Pep Total Protein Albumin Globulin Albumin/Globulin Ratio Procalcitonin TSH Nasal Screen MRSA (PCR) Negative for mrsa Chlamy pneumoniae PCR Not detected Adenovirus (PCR) Not detected B.parapertussis DNA PCR Not detected Coronavirus OC43 (PCR) Not detected Coronavirus HKU1 (PCR) Not detected Coronavirus 229E (PCR) Not detected COVID-19 PCR Not detected Coronavirus NL63 (PCR) Not detected Human Metapneumovir PCR Not detected Influenza Type A (PCR) Not detected Influenza Type B (PCR) Not detected M. pneumoniae (PCR) Not detected Parainfluenza 1 (PCR) Not detected Parainfluenza 2 (PCR) Not detected Parainfluenza 3 (PCR) Not detected Parainfluenza 4 (PCR) Not detected RSV (PCR) Not detected Entero/Rhino (PCR) Not detected 08/27/20 08/27/20 08/27/20 04:35 04:35 04:35 WBC 15.3 H RBC 5.06 Hgb 13.8 Hct 42.1 MCV 83.1 MCH 27.3 MCHC 32.9 RDW 14.5 Plt Count 160 Neut % (Auto) 75.5 H Lymph % (Auto) 13.9 L [place] % (Auto) 10.1 Eos % (Auto) 0.2 L Baso % (Auto) 0.3 Neut # (Auto) 61694 H Lymph # (Auto) 2100 [place] # (Auto) 1500 H Eos # (Auto) 0 Baso # (Auto) 0 PT INR APTT ABG pH ABG pCO2 ABG pO2 ABG HCO3 ABG Total CO2 ABG O2 Saturation ABG Base Excess FiO2 Sodium 144 Potassium 4.3 Chloride 108 H Carbon Dioxide 32 BUN 25 H Creatinine 1.45 H Estimated GFR 47.8 L BUN/Creatinine Ratio 17.2 Glucose 152 H D Hemoglobin A1c Lactate Calcium 9.0 Magnesium 1.9 Total Bilirubin AST ALT Alkaline Phosphatase Total Creatine Kinase CK-MB (CK-2) CK-MB (CK-2) Rel Index Troponin I NT-Pro-B Natriuret Pep 4390 H Total Protein Albumin Globulin Albumin/Globulin Ratio Procalcitonin TSH Nasal Screen MRSA (PCR) Chlamy pneumoniae PCR Adenovirus (PCR) B.parapertussis DNA PCR Coronavirus OC43 (PCR) Coronavirus HKU1 (PCR) Coronavirus 229E (PCR) COVID-19 PCR Coronavirus NL63 (PCR) Human Metapneumovir PCR Influenza Type A (PCR) Influenza Type B (PCR) M. pneumoniae (PCR) Parainfluenza 1 (PCR) Parainfluenza 2 (PCR) Parainfluenza 3 (PCR) Parainfluenza 4 (PCR) RSV (PCR) Entero/Rhino (PCR) 08/27/20 08/27/20 08/27/20 04:35 04:35 04:35 WBC RBC Hgb Hct MCV MCH MCHC RDW Plt Count Neut % (Auto) Lymph % (Auto) [place] % (Auto) Eos % (Auto) Baso % (Auto) Neut # (Auto) Lymph # (Auto) [place] # (Auto) Eos # (Auto) Baso # (Auto) PT INR APTT ABG pH ABG pCO2 ABG pO2 ABG HCO3 ABG Total CO2 ABG O2 Saturation ABG Base Excess FiO2 Sodium Potassium Chloride Carbon Dioxide BUN Creatinine Estimated GFR BUN/Creatinine Ratio Glucose Hemoglobin A1c 7.4 H Lactate Calcium Magnesium Total Bilirubin AST ALT Alkaline Phosphatase Total Creatine Kinase 72 CK-MB (CK-2) TNP CK-MB (CK-2) Rel Index TNP Troponin I 0.170 H* NT-Pro-B Natriuret Pep Total Protein Albumin Globulin Albumin/Globulin Ratio Procalcitonin TSH 0.79 Nasal Screen MRSA (PCR) Chlamy pneumoniae PCR Adenovirus (PCR) B.parapertussis DNA PCR Coronavirus OC43 (PCR) Coronavirus HKU1 (PCR) Coronavirus 229E (PCR) COVID-19 PCR Coronavirus NL63 (PCR) Human Metapneumovir PCR Influenza Type A (PCR) Influenza Type B (PCR) M. pneumoniae (PCR) Parainfluenza 1 (PCR) Parainfluenza 2 (PCR) Parainfluenza 3 (PCR) Parainfluenza 4 (PCR) RSV (PCR) Entero/Rhino (PCR) 08/27/20 08/27/20 04:35 09:35 WBC RBC Hgb Hct MCV MCH MCHC RDW Plt Count Neut % (Auto) Lymph % (Auto) [place] % (Auto) Eos % (Auto) Baso % (Auto) Neut # (Auto) Lymph # (Auto) [place] # (Auto) Eos # (Auto) Baso # (Auto) PT INR APTT ABG pH 7.42 ABG pCO2 38.0 ABG pO2 62 L ABG HCO3 25 ABG Total CO2 26 ABG O2 Saturation 92 L ABG Base Excess 0.0 FiO2 0.40 Sodium Potassium Chloride Carbon Dioxide BUN Creatinine Estimated GFR BUN/Creatinine Ratio Glucose Hemoglobin A1c Lactate Calcium Magnesium Total Bilirubin AST ALT Alkaline Phosphatase Total Creatine Kinase CK-MB (CK-2) CK-MB (CK-2) Rel Index Troponin I NT-Pro-B Natriuret Pep Total Protein Albumin Globulin Albumin/Globulin Ratio Procalcitonin 1.29 H TSH Nasal Screen MRSA (PCR) Chlamy pneumoniae PCR Adenovirus (PCR) B.parapertussis DNA PCR Coronavirus OC43 (PCR) Coronavirus HKU1 (PCR) Coronavirus 229E (PCR) COVID-19 PCR Coronavirus NL63 (PCR) Human Metapneumovir PCR Influenza Type A (PCR) Influenza Type B (PCR) M. pneumoniae (PCR) Parainfluenza 1 (PCR) Parainfluenza 2 (PCR) Parainfluenza 3 (PCR) Parainfluenza 4 (PCR) RSV (PCR) Entero/Rhino (PCR) [facility] Medical History (Updated 08/26/20 @ 22:21 by LOYD Smith) Coronary artery disease Diabetes GERD (gastroesophageal reflux disease) Hyperlipidemia Hypertension Surgical History (Updated 08/26/20 @ 22:21 by LOYD Smith) History of colonoscopy History of local excision of skin lesion History of permanent cardiac pacemaker placement History of skin graft Social History household members: children Smoking Status: Never smoker alcohol intake: never substance use type: does not use Assessment & Plan Assessment & Plan narrative: Patient is a 70-year-old male with history of CAD, pacemaker, type 2 diabetes, hypertension, GERD admitted with acute respiratory failure due to pneumonia and CHF. 1. Acute respiratory failure with hypoxia and hypercarbia, present on admission, active -started on BiPAP in the ED, taken off BiPAP a.m. 08/27 and started high-flow nasal cannula -on high-flow 5 liters/minute pH 7.42, pCO2 38, PO2 62 -ABG demonstrates uncompensated respiratory acidosis with pH of 7.31, pCO2 48.5, PO2 146, bicarb 25 with a base excess of -2. PF ratio is 182. -chest x-ray identifies cardiomyopathy with diffuse interstitial prominence with patchy by the basilar infiltrates consistent with pulmonary edema and/or pneumonia. -patient was diuresed with IV Lasix and started on antibiotics as below with early improvement in respiratory status -continue high-flow cannula and titrate down as able 2. Community-acquired pneumonia, bilateral lower lobes, bacterial, present on admission, active. -chest x-ray with bilateral patchy infiltrates, initial labs with leukocytosis and has elevated procalcitonin on follow-up labs -continue Zosyn 4.5 g IV q.6 hours and added Zithromax 500 mg IV q.d. for atypi kae coverage -repeat CBC and procalcitonin in a.m. -follow-up on blood culture results 3. Acute on chronic systolic heart failure with borderline low ejection fraction, chronic, active -last echo found was December 2016 finding an EF of 50-55%, LV with normal structure and function, RV with dilation. -patient is suspicious for flash pulmonary edema due to the abruptness of onset as well as a similar reoccurrence of acute dyspnea upon arrival in the intensive care unit mi on BiPAP. -patient had good diuresis after couple doses of IV Lasix -transthoracic echo pending -continue losartan 100 mg q.d., carvedilol 25 mg b.i.d., amlodipine 10 mg q.d., and HCTZ 12.5 mg q.d. -D/C fluid restriction and consider changing diuretic to oral Lasix after review of echo results 4. Coronary artery disease, chronic, stable -patient with a history of heart disease, documented inferior inferior apical wall deficits on nuclear med stress test June 2015. -prior documentation of Q-waves in the inferior leads with a right bundle branch block now presenting with sinus tachycardia with atrial sensing and ventricular pacing. -continue patient's routine of aspirin 81 mg q.d. and atorvastatin 80 mg q.d. -elevated troponin likely secondary to cardioversion in the ED and not indicative of myocardial ischemia 5. History of pacemaker -Dr. Yee, cardiology is contacted through the ER and with pacemaker i nterrogation does not believe patient's dyspnea is related to rhythm disturbance -patient has been in a sinus tachycardia with ventricular pacing. -in ED, patient was initially evaluated for wide complex tachycardia, treated as a ventricular tachycardia, which resulted in cardioversion x2 and administering IV amiodarone, subsequently after cardiology review it became clear that patient had sinus tachycardia with a ventricular paced rhythm 5. Acute kidney injury, present on admission, active. -patient has a serum creatinine of 1.67 on admission labs with a BUN of 22, baseline is 1.0 (05/16/2020). -elevated creatinine believed to be related to heart failure. -repeat creatinine 1.45 trending down after diuresis 6. Diabetes type 2 with acute hyperglycemia, chronic, stable. -hemoglobin A1c 7.4, adequate long-term control -Patient takes glipizide 5 mg twice daily at home. -serum glucose on admission labs is 258. Elevation likely in the setting of infection will hold glipizide. -ordered fingerstick blood sugars a.c. and hs, coverage with low-dose correctional insulin. VTE prophylaxis: Enoxaparin 40 mg daily IV fluid: Saline lock Diet: Heart healthy, small consistent carbohydrate Code status: Full Code, the patient designates his daughter to be his surrogate decision maker.
--- NOTE | 2020-08-27 13:13 | CM.DANOTE ---
Patient is a 70 year old male who was admitted on 08/26/20 for SOB. Pt has [facility] and [facility] for insurance and his PCP is Kathy Hoffmann. EMR was reviewed. Per MD, pt with hx of pacemaker placement, diabetes and increased weakness the past few days. Pt admitted with Acute Respiratory Failure and community acquired pneumonia. PT/OT orders not quite appropriate yet but to be ordered tomorrow for initial eval when pt more stable. SW met bedside with pt and explained role and pt confirms he still lives in [facility] with his son and son's step Dtr who is about 15 yrs old (sounds like pt's Dtr татьяна is not currently living there anymore). Pt is mostly independent with ADL's but relies on family for transport. Pt denies any hx of HH or SNF or at least not for many years. Pt denies any other supportive services in place. Pt states his DPOA is his eldest Dtr Yarelis who lives locally but did not have her contact phone number memorized and his son he lives with is on his visitor list for [address] precautions. Pt was last admitted back in 2012 and has been fairly medically stable since that time. Plan: SW to follow closely for likely PT/OT eval tomorrow towards determining pt's d/c needs. PETRONA Nielsen Discharge Planning/Care Management Advanced directive, confirm from FAMILY Start: 08/26/20 22:14 Freq: Q24H Status: Complete Protocol: Document 08/27/20 09:12 TJB (Rec: 08/27/20 09:12 TJB [id number]) Advance Directive, confirm on record Time 09:12 Person contacted no advance directive to receive- Copy received No CM Discharge Assessment Start: 08/27/20 13:11 Freq: Status: Active Protocol: Document 08/27/20 13:11 BF (Rec: 08/27/20 13:13 BF [id number]) Discharge Planning Assessment Assigned Foil Wrapper PETRONA Ohara DPOA/Assigned Designee Name Dtr Yarelis, lives locally Advance Directives? No Advance Directives on File No History Provided By Patient,Medical Record Has Patient been admitted in last 30 No days? Prior Living Arrangements House Household Members children Type of transporation used prior to Relies on Others admit Independent with ADL's Yes Is patient alert and oriented? Yes: mostly Needs Assistance With Managing Medications,Home Chores / Shopping Caregiver for Another No Patient/Family Preference Home with Home Health Comment Pending likely PT/OT eval tomorrow when more medically appropriate Barriers to Discharge No Discharge Plan Home with Home Health Additional Comment Waiting for PT/OT eval to be ordered for tomorrow to determine needs Whiteboard Updated in Patient Room with Yes name and ext. # of Foil Wrapper Review Status In Process Please Provide Date Initial DC 08/27/20 Assessment Was Performed Next Review Type Continued Stay Review
[2020-08-27] MEDS: TRAMADOL 50 MG TABLET PO ×2 (15:38→20:26)
[2020-08-27] MEDS: BUSPIRONE 15 MG TABLET 30 MG PO (20:24)
[2020-08-27] MEDS: SODIUM CHLORIDE 0.9% FLUSH 10 ML IV (20:30)
--- NOTE | 2020-08-27 22:30 | PC.NURSE ---
Pt tolerating 2L HFNC sats 96%, denies shortness of breath or chest pain. Medicated for generalized aches and pains with Tramadol. Cooperative with cares, Up to chair at bedside with 1person assist.
[2020-08-27] MEDS: BACLOFEN 10 MG TABLET PO (23:48)
[2020-08-28] VITALS (14 sets, daily range): BP systolic 105–112; BP diastolic 61–72; PULSE 82–104; RESP 18–27; TEMP 36.1–36.5; O2SAT 92–99
[2020-08-28] MEDS: PIPERACILLIN-TAZO 4.5 GM/100 ML FROZ.PIGGY IV ×4 (01:56→19:44)
--- NOTE | 2020-08-28 02:45 | PC.NURSE ---
Pt back on BIPAPat 0100 when going to sleep.. Tolerating well without issues. O2 sats at 98% on BIPAP. Pt has no complaints of pain. Baclofen given for spasms in legs. No complaints. WCTM
[2020-08-28 05:10] LABS: Add Manual Diff / Slide Review NO; Basophils Absolute Auto 0 /uL (0-100); Basophils Percent Auto 0.4 % (0-2); Eosinophils Absolute Auto 400 /uL (0-450); Eosinophils Percent Auto 4.2 % (2-4); Hematocrit 40.5 % (41-53); Hemoglobin 13.4 g/dL (13.5-17.5); Lymphocytes Absolute Auto 2200 /uL (1100-4500); Lymphocytes Percent Auto 24.4 % (25-40); Mean Corpuscular HGB Conc 33.1 % (30-36); Mean Corpuscular Hemoglobin 27.3 PG (26-34); Mean Corpuscular Volume 82.4 fL (80-100); Monocytes Absolute Auto 1100 /uL (0-900); Monocytes Percent Auto 11.7 % (3-14); Neutrophils Absolute Auto 5400 /uL (1500-7000); Neutrophils Percent Auto 59.3 % (50-75); Platelet Count 154 X10^3/uL (150-400); Red Blood Cell Count 4.91 X10^6/uL (4.5-5.9); Red Cell Distribution Width 14.6 % (11.6-14.8); White Blood Cell Count 9.1 X10^3/uL (4.5-11.0)
[2020-08-28 05:15] LABS: BUN Creatinine Ratio 18.9 (6-22); Blood Urea Nitrogen 24 mg/dL (9-20); Calcium 8.8 mg/dL (8.4-10.2); Carbon Dioxide 38 mmol/L (22-32); Chloride 103 mmol/L (98-107); Estimated Glomerular Filt Rate 55.7 mL/min (>60); Glucose 106 mg/dL (80-110); HEMOLYSIS < 15 (0-50); Potassium 4.1 mmol/L (3.4-5.1); Sodium 142 mmol/L (137-145)
[2020-08-28 05:30] LABS: Procalcitonin 1.12 ng/mL (<0.5)
[2020-08-28] MEDS: guaiFENesin ER 600 MG TAB PO ×2 (08:22→20:31)
[2020-08-28] MEDS: AMLODIPINE 5 MG TABLET 10 MG PO (08:22)
[2020-08-28] MEDS: ENOXAPARIN 40 MG/0.4 ML SYRINGE SUBCUT (08:22)
[2020-08-28] MEDS: carvediloL 12.5 MG TABLET 25 MG PO ×2 (08:22→20:30)
[2020-08-28] MEDS: PANTOPRAZOLE 40 MG VIAL IV (08:22)
[2020-08-28] MEDS: LOSARTAN 50 MG TABLET 100 MG PO (08:23)
[2020-08-28] MEDS: DOCUSATE 100 MG CAPSULE PO (08:23)
[2020-08-28] MEDS: ASPIRIN 81 MG CHEW TAB PO (08:23)
[2020-08-28] MEDS: SPIRONOLACTONE 25 MG TABLET PO (08:23)
[2020-08-28] MEDS: ATORVASTATIN 20 MG TABLET 80 MG PO (08:23)
[2020-08-28] MEDS: FUROSEMIDE 40 MG TABLET PO (08:23)
[2020-08-28] MEDS: SODIUM CHLORIDE 0.9% FLUSH 10 ML IV ×2 (08:24→20:31)
[2020-08-28] MEDS: BUSPIRONE 15 MG TABLET 30 MG PO ×2 (08:29→20:30)
[2020-08-28] MEDS: TRAMADOL 50 MG TABLET PO ×2 (08:33→19:08)
--- NOTE | 2020-08-28 09:04 | PM.PN.1 ---
Subjective Subjective Date Patient Seen: 08/28/20 Interval history: Patient is a 70-year-old male with history of CAD, pacemaker, type 2 diabetes, hypertension, GERD admitted due to pneumonia and CHF. Patient notes improvement in cough and dyspnea. Last O2 sat 96% on 2 L nasal cannula. His echo showed new severe systolic LV dysfunction and diffuse regional wall motion abnormalities possibly related to myocardial stunning from cardioversions in ED. Exam Vital Signs (past 8 hours): - 08/28/20 03:15 08/28/20 04:33 08/28/20 05:34 Temperature 97.3 F L Pulse Rate 91 H Respiratory Rate 23 Blood Pressure 112/67 105/61 105/61 Pulse Oximetry 97 08/28/20 05:56 08/28/20 08:11 Temperature Pulse Rate 86 Respiratory Rate Blood Pressure Pulse Oximetry 96 Fraction of Inspired Oxygen 35 Oxygen Delivery Method Nasal Cannula Oxygen Flow Rate 2 Narrative Exam Narrative: General: Alert and cooperative male in no acute distress Lungs: Breathing nonlabored, bibasilar crackles Heart: Paced rhythm with mild tachycardia Extremities: No edema Neurological: Affect normal, nonfocal Objective Labs Result Diagrams: 08/28/20 04:30 08/28/20 04:30 Labs: Laboratory Results - last 24 hr 08/27/20 08/28/20 08/28/20 09:35 04:30 04:30 WBC 9.1 RBC 4.91 Hgb 13.4 L Hct 40.5 L MCV 82.4 MCH 27.3 MCHC 33.1 RDW 14.6 Plt Count 154 Neut % (Auto) 59.3 Lymph % (Auto) 24.4 L Stafford % (Auto) 11.7 Eos % (Auto) 4.2 H Baso % (Auto) 0.4 Neut # (Auto) 5400 Lymph # (Auto) 2200 Stafford # (Auto) 1100 H Eos # (Auto) 400 Baso # (Auto) 0 ABG pH 7.42 ABG pCO2 38.0 ABG pO2 62 L ABG HCO3 25 ABG Total CO2 26 ABG O2 Saturation 92 L ABG Base Excess 0.0 FiO2 0.40 Sodium Potassium Chloride Carbon Dioxide BUN Creatinine Estimated GFR BUN/Creatinine Ratio Glucose Calcium Procalcitonin 1.12 H 08/28/20 04:30 WBC RBC Hgb Hct MCV MCH MCHC RDW Plt Count Neut % (Auto) Lymph % (Auto) Stafford % (Auto) Eos % (Auto) Baso % (Auto) Neut # (Auto) Lymph # (Auto) Stafford # (Auto) Eos # (Auto) Baso # (Auto) ABG pH ABG pCO2 ABG pO2 ABG HCO3 ABG Total CO2 ABG O2 Saturation ABG Base Excess FiO2 Sodium 142 Potassium 4.1 Chloride 103 Carbon Dioxide 38 H BUN 24 H Creatinine 1.27 H Estimated GFR 55.7 L BUN/Creatinine Ratio 18.9 Glucose 106 Calcium 8.8 Procalcitonin [facility] Medical History (Updated 08/26/20 @ 22:21 by LOYD Smith) Coronary artery disease Diabetes GERD (gastroesophageal reflux disease) Hyperlipidemia Hypertension Surgical History (Updated 08/26/20 @ 22:21 by LOYD Smith) History of colonoscopy History of local excision of skin lesion History of permanent cardiac pacemaker placement History of skin graft Social History household members: children Smoking Status: Never smoker alcohol intake: never substance use type: does not use Assessment & Plan Assessment & Plan narrative: Patient is a 70-year-old male with history of CAD, pacemaker, type 2 diabetes, hypertension, GERD admitted due to pneumonia and CHF. 1. Acute respiratory failure with hypoxia and hypercarbia, present on admission, active -started on BiPAP in the ED, taken off BiPAP a.m. 08/27 and started high-flow nasal cannula, now on O2 2 L NC with sats of 96% -initial ABG demonstrates uncompensated respiratory acidosis with pH of 7.31, pCO2 48.5, PO2 146, bicarb 25 with a base excess of -2. PF ratio is 182. -chest x-ray identifies cardiomyopathy with diffuse interstitial prominence with patchy by the basilar infiltrates consistent with pulmonary edema and/or pneumonia. -patient was diuresed with IV Lasix and started on antibiotics as below with early improvement in respiratory status -continue O2 nasal cannula as needed and treat underlying conditions 2. Community-acquired pneumonia, bilateral lower lobes, bacterial, present on admission, active. -improving symptoms with declines in WBC and procalcitonin -chest x-ray with bilateral patchy infiltrates, initial labs with leukocytosis and has elevated procalcitonin on follow-up labs -continue Zosyn 4.5 g IV q.6 hours and added Zithromax 500 mg IV q.d. for atypical coverage -has loose cough, obtain sputum culture -repeat CBC and procalcitonin in a.m. -blood cultures are no growth 3. Acute systolic heart failure, chronic, active -echo 08/26 shows marked decline in LV function with LVEF 25-30%, moderate to severely dilated LV, new fairly diffuse regional wall motion abnormalities with severely hypokinetic to akinetic portions of LV, decreased RV function versus previous echo 01/2020 LVEF was 50-55% without obvious wall motion abnormalities. -current echo findings may be explained by myocardial stunning after patient received cardioversion x2 in the ED verses new findings related to acute myocardial ischemia -chest x-ray on admission with appearance of diffuse interstitial edema in addition to patchy areas of pneumonia -patient is suspicious for flash pulmonary edema due to the abruptness of onset as well as a similar reoccurrence of acute dyspnea upon arrival in the intensive care unit mi on BiPAP. -patient had good diuresis after a few doses of IV Lasix, net -3900 cc fluid balance since admission -repeat limited echo in 2-3 days to reassess LV function and wall motion abnormalities -added furosemide 40 mg p.o. q.a.m., spironolactone 25 mg q.d., and continued losartan 100 mg q.d., carvedilol 25 mg b.i.d., amlodipine 10 mg q.d. -discontinued HCTZ with adding the furosemide 4. Coronary artery disease, chronic, stable -patient with a history of heart disease, documented inferior inferior apical wall deficits on nuclear med stress test June 2015. -prior documentation of Q-waves in the inferior leads with a right bundle branch block now presenting with sinus tachycardia with atrial sensing and ventricular pacing. -continue patient's routine of aspirin 81 mg q.d. and atorvastatin 80 mg q.d. -elevated repeat troponin likely secondary to cardioversion in the ED and not indicative of myocardial ischemia 5. History of pacemaker -Dr. Yee, cardiology is contacted through the ER and with pacemaker interrogation does not believe patient's dyspnea is related to rhythm disturbance -patient is ventricularly paced -in ED, patient was initially evaluated for wide complex tachycardia, treated as a ventricular tachycardia, which resulted in cardioversion x2 and administering IV amiodarone, subsequently after cardiology review it became clear that patient had sinus tachycardia with atrial sensing and ventricular paced rhythm 5. Acute kidney injury, present on admission, active. -patient has a serum creatinine of 1.67 on admission labs with a BUN of 22, baseline is 1.0 (05/16/2020). -elevated creatinine believed to be related to heart failure. -repeat creatinine values trending down, last 09.28 6. Diabetes type 2 with acute hyperglycemia, chronic, stable. -hemoglobin A1c 7.4, adequate long-term control -Patient takes glipizide 5 mg twice daily at home. -serum glucose on admission labs is 258. Elevation likely in the setting of infection will hold glipizide. -subsequent glucose trending down with most values below 150 -ordered fingerstick blood sugars a.c. and hs, coverage with low-dose correctional insulin. Additional 0ers 08/28: JESSICA Blake, sputum culture, PT consult VTE prophylaxis: Enoxaparin 40 mg daily IV fluid: Saline lock Diet: Heart healthy, small consistent carbohydrate Code status: Full Code, the patient designates his daughter to be his surrogate decision maker.
[2020-08-28] MEDS: AZITHROMYCIN 500 MG in DEXTROSE 5% IN WATER 250 ML IV (09:15)
--- NOTE | 2020-08-28 11:25 | PT.IIE ---
Surgical History (Last Updated 08/26/20 @ 22:21 by LOYD Smith) History of colonoscopy History of local excision of skin lesion History of permanent cardiac pacemaker placement History of skin graft Medical History (Last Updated 08/26/20 @ 22:21 by LOYD Smith) Coronary artery disease Diabetes GERD (gastroesophageal reflux disease) Hyperlipidemia Hypertension Physical Therapy Inpatient Evaluation/Re-Eval M1 PT/OT-IP Prior Functional Status Start: 08/28/20 10:27 Freq: NEEDED Status: Active Protocol: Document 08/28/20 11:20 AW (Rec: 08/28/20 11:43 AW [id number]) Medical Review Prior Functional Status Medical History Reviewed Yes Communication WNL. Pt is an effective verbal communicator. Mobility and Gait Pt states he is independent with household and short distance community mobility without AD. Pt states he continues to occasionally climb two flights of stairs at his office. Activities of Daily Living and IADL's Independent with all ADL's. Pt 's son and step-daughter assist with cooking, cleaning, and some shopping though pt states he does complete some shopping trips by himself. 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 Prior Functional Level (Other details) Pt notes the importance of a spiritual element in his disease process but also states I have an obligation to take care of myself physically so I can continue to care for the spiritual element. Social History Household Members children Living Arrangements House Number of Floors (Floors) One Floor Number of Stairs To Enter/Railing? 3 ARIE with L rail ascending at the front of the house. 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 He is officially furloughed but continues to go to the office on a regular basis because his work is important to him and he is afraid of sitting around too much at home. He lives with his 30-yo son and 50-yo step-daughter who assist with IADL's. M2 PT-IP Current Condition Start: 08/28/20 10:27 Freq: NEEDED Status: Active Protocol: Document 08/28/20 11:20 AW (Rec: 08/28/20 12:48 AW [id number]) Physical Therapy Current Condition Current Condition Evaluation Date 08/28/20 Treatment Diagnosis pneumonia, CHF, acute respiratory failure, generalized weakness Onset Date 08/26/20 Precautions Other Precautions Serial troponins 0.166, 0.170. Hospitalist cleared pt for activity. M3 PT-IP Subjective Start: 08/28/20 10:27 Freq: NEEDED Status: Active Protocol: Document 08/28/20 11:20 AW (Rec: 08/28/20 12:48 AW [id number]) Subjective Physical Therapy Visit Type Type Initial Evaluation Visit Start Time 10:53 Visit Stop Time 11:20 Total Visit Minutes 27 Physical Therapy Visit Comments Patient Comments It might feel good to walk around. Patient Goals Return to home Therapy Pain Assessment Pain When Pain Assessed During Mobility Pain Present Pain Present Denied Pain M4 PT-IP Mobility and Gait Start: 08/28/20 10:27 Freq: NEEDED Status: Active Protocol: Document 08/28/20 11:20 AW (Rec: 08/28/20 12:48 AW [id number]) PT-Bed Mobility Assessment Supine to Sit Supine to Sit Standby Assistance Scooting Scooting to Edge of Bed Standby Assistance PT-Transfer Assessment Sit to and From Stand Sit to and from Stand Standby Assistance Equipment Transfer Assistive Device Gait Belt Orthotic/Prosthetic Devices or Brace: No Transfers Transfer Destination Chair Transfer Technique Stand Step Pivot Transfer Ability Level of Assist Standby Assistance Comments Mobility Comments Pt was lying in bed as PT arrived. BP was 110/72 HR 96 SpO2 93% on 2L O2 via NC. Pt completed all bed mobility from flat bed SBA and then stood from the bed in lowest position SBA. He ambulated around the bed and transferred to the chair SBA. VS were stable. PT then removed O2 and pt ambulated around the unit a total of 120 feet without AD SBA. Pt exhibited mild SOB but denied any pain. Pt returned to the room and transferred to the chair SBA. Call light and all needs were placed within reach. BP was 105/65 and SpO2 94% on room air. Pt was left on continuous oximetry monitoring and RN was notified. Gait Assessment Gait Gait Assistance Required: Standby Assistance Distance (Feet) 120 Able to Maintain Weight Bearing Status Yes During Gait Assistive Devices Assistive Device None,Gait Belt Orthotic/Prosthetic Devices or Brace: No Gait Deviations General Gait Pattern Decreased Stride Length, Decreased Feet Clearance,Wide Based Gait Factors Limiting Gait Function Factors Limiting Gait Function Decreased Activity Tolerance, Decreased Strength,Respiratory Distress Comments Gait Comments See mobility comments for details. Stair Climbing Assessment Comments Stair Climbing Comments Not assessed. PT-Balance Assessment Sitting Balance and Reactions Static Sitting Balance Ability Good Dynamic Sitting Balance Ability Good Standing Balance and Reactions Static Standing Balance Ability Good Dynamic Standing Balance Ability Good Device Used no AD M5 PT-IP Objective Assessments Start: 08/28/20 10:27 Freq: NEEDED Status: Active Protocol: Document 08/28/20 11:20 AW (Rec: 08/28/20 12:53 AW [id number]) Orientation Orientation/Cognition Level of Alertness Alert Orientation Name,Age,Birthday,Month,Date, Year,Day of Week,Place, Situation Language Function Ability No Deficits Noted Safety Awareness Understands Safety Issues Memory Description No Deficits Noted Gross Range of Motion Lower Extremity ROM Assessment Within Functional Limits Strength Lower Extremity Strength Assessment Within Functional Limits Comments Strength Comments BLE grossly 4+/5 Coordination Assessment Gross Coordination Gross Coordination WNL Sensation Assessment Sensation Gross Sensation WNL M6 PT-IP Treatment Start: 08/28/20 10:27 Freq: NEEDED Status: Active Protocol: Document 08/28/20 11:20 AW (Rec: 08/28/20 12:53 AW [id number]) Physical Therapy Treatment Education Education Provided Safety Other Treatments Other Treatment Performed Provided education on role of PT, plan of care, and energy conservation techniques. M7 PT-IP Assessment and Plan Start: 08/28/20 10:27 Freq: NEEDED Status: Active Protocol: Document 08/28/20 11:20 AW (Rec: 08/28/20 12:53 AW [id number]) PT Summary Assessment and Plan Potential Rehabilitation Potential Good Status of Condition at Evaluation Stable Summary Impairments Strength,Bed Mobility, Transfers,Gait,Activity Tolerance Assessment Summary Raymond is a 70 yo [place] man seen for PT evlaluation with admitting diagnosis of pneumonia and acute respiratory failure. He independent in all regards at baseline. He lives with his son and step-daughter who assist with IADL's as needed. On evaluation, pt required SBA for all mobilities and maintained SpO2 93-95% on room air during all activities. Pt will be safe to discharge home with assist once medically cleared. PT will continue to follow. Goals Bed Mobility Goal Independent Transfer Goal Independent Gait Goal Independent Gait Distance 250 Other Goals - up/down 3 steps with left rail ascending SBA Days to Meet Goals 3 Frequency of Treatment Frequency Of Treatment Once a Day Treatment Plan Physical Therapy Treatment Plan Bed Mobility Training,Transfer Training,Gait Training, Therapeutic Exercise,Balance Retraining,Discharge Planning Other Recommendations and Next Treatment progress gait distance while Focus monitoring pulse ox; stairs Recommendations To Nursing Amount of Assist Needed Standby Assistance Discharge Recommendations PT Discharge Recommendations Home with Assistance Transportation Needs at Discharge Private Vehicle
[2020-08-28] MEDS: INSULIN ASPART 100 UNIT/ML INSULN PEN SUBCUT (12:09)
--- NOTE | 2020-08-28 14:15 | PC.NURSE ---
Day Shift Note SpO2 92-96% on RA when awake. Desaturates to 85% while sleeping, 2L NC applied and SpO2 maintaining at 94-95% while asleep. SBA in room, calling appropriately. Reports 5/10 back pain this morning and received tramadol per emar with good effect. V paced on tele. Blake catheter discontinued at 0920 without issue and has since voided. Call light within reach.
--- NOTE | 2020-08-28 14:23 | CM.DPC ---
DCP Cont: Per MD, pt making good progress and improving but likely still here for another couple of days before stable for discharge. Per PT initial eval, pt was able to participate fully and ambulated well and recommending safe d/c home with family assist when stable. Per RN, pt much improved from yesterday and no concerns at this time. Plan: SW to follow for plan of home with family when medically stable. No SW needs at this time. SW to follow for any further identified needs. PETRONA Nielsen
[2020-08-29 00:08] VITALS: BP 116/53; PULSE 90; RESP 21; TEMP 36.1; O2SAT 95
[2020-08-29] MEDS: MELATONIN 3 MG TABLET 9 MG PO (00:18)
[2020-08-29] MEDS: PIPERACILLIN-TAZO 4.5 GM/100 ML FROZ.PIGGY IV ×2 (02:02→08:49)
[2020-08-29 04:00] VITALS: BP 117/63; PULSE 86; RESP 20; TEMP 36.4; O2SAT 98
[2020-08-29 05:11] LABS: Add Manual Diff / Slide Review NO; Basophils Absolute Auto 0 /uL (0-100); Basophils Percent Auto 0.6 % (0-2); Eosinophils Absolute Auto 400 /uL (0-450); Eosinophils Percent Auto 5.8 % (2-4); Hematocrit 40.5 % (41-53); Hemoglobin 13.3 g/dL (13.5-17.5); Lymphocytes Absolute Auto 1800 /uL (1100-4500); Mean Corpuscular HGB Conc 32.7 % (30-36); Mean Corpuscular Hemoglobin 26.9 PG (26-34); Mean Corpuscular Volume 82.4 fL (80-100); Monocytes Absolute Auto 1000 /uL (0-900); Monocytes Percent Auto 12.9 % (3-14); Neutrophils Absolute Auto 4200 /uL (1500-7000); Neutrophils Percent Auto 56.7 % (50-75); Platelet Count 171 X10^3/uL (150-400); Red Blood Cell Count 4.92 X10^6/uL (4.5-5.9); Red Cell Distribution Width 14.5 % (11.6-14.8); White Blood Cell Count 7.4 X10^3/uL (4.5-11.0)
[2020-08-29 05:15] LABS: BUN Creatinine Ratio 18.3 (6-22); Blood Urea Nitrogen 22 mg/dL (9-20); Calcium 9.1 mg/dL (8.4-10.2); Carbon Dioxide 35 mmol/L (22-32); Chloride 102 mmol/L (98-107); Estimated Glomerular Filt Rate 59.5 mL/min (>60); Glucose 116 mg/dL (80-110); HEMOLYSIS < 15 (0-50); Potassium 3.6 mmol/L (3.4-5.1); Sodium 140 mmol/L (137-145)
[2020-08-29 05:52] LABS: Procalcitonin 0.49 ng/mL (<0.5)
[2020-08-29] MEDS: PANTOPRAZOLE 40 MG TABLET PO (06:45)
[2020-08-29 06:49] VITALS: O2SAT 99
[2020-08-29 07:00] VITALS: O2SAT 98
[2020-08-29 08:00] VITALS: BP 125/84; PULSE 99; RESP 28; TEMP 36.7; O2SAT 96
[2020-08-29] MEDS: AZITHROMYCIN 500 MG in DEXTROSE 5% IN WATER 250 ML IV (09:37)
[2020-08-29] MEDS: DOCUSATE 100 MG CAPSULE PO (09:38)
[2020-08-29] MEDS: guaiFENesin ER 600 MG TAB PO (09:38)
[2020-08-29] MEDS: ASPIRIN 81 MG CHEW TAB PO (09:38)
[2020-08-29] MEDS: SPIRONOLACTONE 25 MG TABLET PO (09:38)
[2020-08-29] MEDS: LOSARTAN 50 MG TABLET 100 MG PO (09:38)
[2020-08-29] MEDS: AMLODIPINE 5 MG TABLET 10 MG PO (09:38)
[2020-08-29] MEDS: ATORVASTATIN 20 MG TABLET 80 MG PO (09:38)
[2020-08-29] MEDS: ENOXAPARIN 40 MG/0.4 ML SYRINGE SUBCUT (09:38)
[2020-08-29] MEDS: FUROSEMIDE 40 MG TABLET PO (09:38)
[2020-08-29] MEDS: BUSPIRONE 15 MG TABLET 30 MG PO (09:40)
[2020-08-29] MEDS: SODIUM CHLORIDE 0.9% FLUSH 10 ML IV (09:40)
[2020-08-29] MEDS: carvediloL 12.5 MG TABLET 25 MG PO (09:40)
[2020-08-29] MEDS: TRAMADOL 50 MG TABLET PO (09:52)
--- NOTE | 2020-08-29 10:23 | P.DS_ITS ---
History of Present Illness History of Present Illness Date Patient Seen: 08/29/20 Time Patient Seen: 08:00 Chief complaint: Resp distress Narrative: As per LOYD Smith: Mr. Raymond Zazueta is a 70-year-old male with a past medical history significant for coronary artery disease, status post pacemaker implantation, hypertension, hyperlipidemia, type 2 diabetes and GERD who presents to the ER with acute onset shortness of breath. Patient is a difficult historian but information obtained indications the patient was feeling well this morning. He laid down for nap and upon waking with acutely short of breath with cough. Additional information obtained from family was at the patient has been feeling poorly for the last several days the patient denies fevers or chills, shortness of breath cough or wheezing, has no abdominal pain, nausea vomiting, diarrhea or constipation. Patient does describe difficulty urination with slow stream. Patient does have a previous cardiac history having had a previous nuclear med stress test in June 2015 finding deficits in the inferior inferior apical wall with prior documentation of abnormal EKG with Q-waves inferiorly with right bundle-branch block. His last echocardiogram for record was December 2016 documenting of 50-55% EF left ventricle normal in size and function and RV dilation. Upon arrival in the ER the patient is severely tachypneic and dusky per ER documentation. He is afebrile with temperature 97.1?, heart rate of 129, blood pressure 139/101, respiratory rate of 58 saturating 98% on 15 liter/minute via non-rebreather mask. Immediate interventions include initiation of BiPAP therapy, nitroglycerin and Lasix. Chest x-ray is obtained finding cardiomyo masha with diffuse interstitial prominence, patchy bibasilar infiltrates concerning for pulmonary edema and/or pneumonia. On lab analysis the patient has elevated white count at 17.5 with increased absolute neutrophils at 13,700, increased monocytes at 1300, hemoglobin of 14.7, hematocrit 45.2 and platelets of 190. He has a PT 11.5, INR of 1.0 and a PTT of 32. His electrolytes are within normal limits he has a BUN of 22 with a creatinine of 1.67. His EGFR is 40.6. His nonfasting glucose is 258. His liver functions are all within normal limits. Has lactic acid of 2.1, troponin elevated 0.071, proBNP of 2310 and procalcitonin is less than 0.05. Twelve lead EKG is obtained finding paced r hythm, a sense and V paced. The patient's respiratory status stabilized with BiPAP therapy and had modest response to diuresis with 40 mg of Lasix. There was concern related to white be tachycardia being either AFib with aberrancy versus V-tach and patient was started on amiodarone due to stable vital signs without change in presentation and was subsequently cardioverted with attempts x2 without change in rhythm. Dr. Yee was consulted and the pacemaker was interrogated revealing the patient was then sinus tachycardia. Per report from the ED provider Dr. Yee felt the patient's dizzy and was not related to arrhythmia and is aware of the troponin in the setting of increased creatinine and elevated BNP. The patient is started on Zosyn in the ER for pneumonia and admitted to the hospitalist service. Discharge Providers Provider Date of admission: 08/26/20 20:12 Discharge Date: 08/29/20 Primary care physician: Kathy Hoffmann MD Consults: 08/26/20 20:19 Consult to Dietitian, Adult Routine Comment: Reason For Exam: Type 2 diabetes with hyperglycemia 08/26/20 20:20 Consult to Discharge Planning Routine Comment: 08/26/20 20:25 Consult to Respiratory Therapy Evaluate & Treat Comment: Physician Instructions: Evaluate and treat 08/27/20 17:14 Consult to Physical Therapy Evaluate & Treat Comment: Physician Instructions: Evaluate and Treat Discharge provider: Souleymane Mederos DO Summary Hospital Course Discharge Diagnosis: Please see hospital course by problem list noted below: Hospital Course: Patient is a 70-year-old male with history of CAD, pacemaker, type 2 diabetes, hypertension, GERD admitted due to pneumonia and CHF. He improved with diuresis and antibiotics. He was initially on BiPAP therapy, then improved after therapies and on day of discharge was not requiring supplemental oxygen. He was discharged home on oral lasix, antibiotics. There was noted EF decrease possibly due to stunning in setting of shocks in the ER, repeat TTE is recommended in one month after continued medical therapy. 1. Acute respiratory failure with hypoxia and hypercarbia, present on admission, resolved -started on BiPAP in the ED, taken off BiPAP a.m. 08/27 and started high-flow nasal cannula and then ultimately improved to off of supplemental oxygen on day of discharge 08/29. -initial ABG demonstrates uncompensated respiratory acidosis with pH of 7.31, pCO2 48.5, PO2 146, bicarb 25 with a base excess of -2. PF ratio is 182. -chest x-ray identifies cardiomyopathy with diffuse interstitial prominence with patchy by the basilar infiltrates consistent with pulmonary edema and/or pneumonia. -patient was diuresed with IV Lasix and started on antibiotics as below with early improvement in respiratory status 2. Community-acquired pneumonia, bilateral lower lobes, bacterial, present on admission, active. -improving symptoms with declines in WBC and procalcitonin over the course of his admission. -chest x-ray with bilateral patchy infiltrates, initial labs with leukocytosis and has elevated procalcitonin on follow-up labs -continue Zosyn 4.5 g IV q.6 hours and added Zithromax 500 mg IV q.d. for atypical coverage. Continue outpatient therapy with augmentin upon discharge for 4 additional days. 3. Acute systolic heart failure, chronic, active -echo 08/26 shows marked decline in LV function with LVEF 25-30%, moderate to severely dilated LV, new fairly diffuse regional wall motion abnormalities with severely hypokinetic to akinetic portions of LV, decreased RV function versus previous echo 01/2020 LVEF was 50-55% without obvious wall motion abnormalities. -current echo findings may be explained by myocardial stunning after patient received cardioversion x2 in the ED verses new findings related to acute myocardial ischemia -chest x-ray on admission with appearance of diffuse interstitial edema in addition to patchy areas of pneumonia, suspicious for flash pulmonary edema due to the abruptness of onset as well as a similar reoccurrence of acute dyspnea upon arrival in the intensive care unit mi on BiPAP. -patient had good diuresis after a few doses of IV Lasix, net -3900 cc fluid balance since admission -repeat outpatient echocardiogram in 1 month to reassess above EF decline. -added furosemide 40 mg p.o. q.a.m., and continued losartan 100 mg q.d., carvedilol 25 mg b.i.d., amlodipine 10 mg q.d. -discontinued HCTZ with adding the furosemide 4. Coronary artery disease, chronic, stable -patient with a history of heart disease, documented inferior inferior apical wall deficits on nuclear med stress test June 2015. -prior documentation of Q-waves in the inferior leads with a right bundle branch block now presenting with sinus tachycardia with atrial sensing and ventricular pacing. -continue patient's routine of aspirin 81 mg q.d. and atorvastatin 80 mg q.d. -elevated repeat troponin likely secondary to cardioversion in the ED and not indicative of myocardial ischemia 5. History of pacemaker -Dr. Yee, cardiology is contacted through the ER and with pacemaker interrogation does not believe patient's dyspnea is related to rhythm disturbance -patient is ventricularly paced -in ED, patient was initially evaluated for wide complex tachycardia, treated as a ventricular tachycardia, which resulted in cardioversion x2 and administering IV amiodarone, subsequently after cardiology review it became clear that patient had sinus tachycardia with atrial sensing and ventricular paced rhythm 5. Acute kidney injury, present on admission, active. -patient has a serum creatinine of 1.67 on admission labs with a BUN of 22, baseline is 1.0 (05/16/2020). -elevated creatinine believed to be related to heart failure, and improved with above therapies. 6. Diabetes type 2 with acute hyperglycemia, chronic, stable. -hemoglobin A1c 7.4, adequate long-term control -Patient takes glipizide 5 mg twice daily at home and will continue on discharge. Status at Discharge Overall status at discharge: patient is progressing back to baseline Time Spent with Patient Time spent: Greater than 30 minutes Exam Vital Signs (past 8 hours): - 08/29/20 04:00 08/29/20 06:49 08/29/20 07:00 Temperature 97.6 F Pulse Rate 86 Respiratory Rate 20 Blood Pressure 117/63 Pulse Oximetry 98 99 98 08/29/20 08:00 Temperature 98.0 F Pulse Rate 99 H Respiratory Rate 28 H Blood Pressure 125/84 Pulse Oximetry 96 Fraction of Inspired Oxygen 35 Oxygen Delivery Method Nasal Cannula Oxygen Flow Rate 0 Narrative Exam Narrative: GENERAL APPEARANCE: Well developed, well nourished, in no acute distress. Mildly fatigued. SKIN: Inspection of the skin reveals no rashes, ulcerations or petechiae. HEENT: Normocephalic atraumatic, extraocular muscles are intact, oropharynx is clear and mucous membranes are moist, neck is supple without adenopathy NECK: Supple and symmetric. There was no thyroid enlargement, and no tenderness, or masses were felt. CHEST: Normal AP diameter and normal contour without any kyphoscoliosis. LUNGS: Auscultation of the lungs revealed bibasilar crackles, minimal. No wheezing. CARDIOVASCULAR: There was a regular rate and rhythm without any murmurs, gallops, rubs. Peripheral pulses were 2+ and symmetric. ABDOMEN: Soft and nontender with normal bowel sounds. No ascites was noted. MUSCULOSKELETAL: There was no tenderness or effusions noted. Muscle strength and tone were normal. EXTREMITIES: No cyanosis, clubbing or edema. NEUROLOGIC: Alert. Normal affect. Strength is +5/5 in the Upper Extremities and Lower Extremities Bilaterally. Sensation to touch was normal. Objective Labs Result Diagrams: 08/29/20 04:40 08/29/20 04:40 Labs: Laboratory Results - last 24 hr 08/29/20 08/29/20 08/29/20 04:40 04:40 04:40 WBC 7.4 RBC 4.92 Hgb 13.3 L Hct 40.5 L MCV 82.4 MCH 26.9 MCHC 32.7 RDW 14.5 Plt Count 171 Neut % (Auto) 56.7 Lymph % (Auto) 24.0 L [place] % (Auto) 12.9 Eos % (Auto) 5.8 H Baso % (Auto) 0.6 Neut # (Auto) 4200 Lymph # (Auto) 1800 [place] # (Auto) 1000 H Eos # (Auto) 400 Baso # (Auto) 0 Sodium 140 Potassium 3.6 Chloride 102 Carbon Dioxide 35 H BUN 22 H Creatinine 1.20 Estimated GFR 59.5 L BUN/Creatinine Ratio 18.3 Glucose 116 H Calcium 9.1 Procalcitonin 0.49 PFSH Medical History (Updated 08/26/20 @ 22:21 by LOYD Smith) Coronary artery disease Diabetes GERD (gastroesophageal reflux disease) Hyperlipidemia Hypertension Surgical History (Updated 08/26/20 @ 22:21 by LOYD Smith) History of colonoscopy History of local excision of skin lesion History of permanent cardiac pacemaker placement History of skin graft Social History household members: children Smoking Status: Never smoker alcohol intake: never substance use type: does not use Discharge Plan Discharge Plan Patient Disposition: Home Provider Discharge Comment: You were admitted to the hospital with shortness of breath, this was secondary to acute heart failure and pneumonia. You should have a repeat echocardiogram in about 1 month to recheck your heart as it was unclear if your heart failure was due to shocks you received in the ER. Discharge orders & Medications Prescriptions: New furosemide 20 mg tablet 20 mg PO DAILY 30 Days Qty: 30 RF: 0 amoxicillin-pot clavulanate 875-125 mg tablet 1 tab PO BID 4 Days Qty: 8 RF: 0 Continued multivitamin Tablet 1 tab PO DAILY Qty: 0 RF: 0 albuterol sulfate [Ventolin HFA] 90 MCG/PUFF HFA aerosol inhaler 2 puff INH PRN PRN (Reason: Shortness Of Breath) Qty: 0 RF: 0 losartan 100 MG tablet 100 mg PO DAILY Qty: 0 RF: 0 zolpidem 5 MG tablet 5 mg PO BEDTIME PRN (Reason: Sleep) Qty: 0 RF: 0 glipizide 5 MG tablet 5 mg PO QAM Qty: 0 RF: 0 atorvastatin 80 mg Tablet 80 mg PO DAILY RF: 0 carvedilol 25 mg Tablet 25 mg PO BID RF: 0 tramadol 50 mg Tablet 50 mg PO Q6H PRN (Reason: pain) RF: 0 amlodipine 10 mg Tablet 10 mg PO DAILY RF: 0 buspirone 30 mg Tablet 30 mg PO BID RF: 0 lidocaine 5 % Adhesive Patch,Medicated 3 patch TOPICAL DAILY RF: 0 aspirin 81 mg Tablet,Chewable 81 mg PO DAILY RF: 0 testosterone cypionate 200 mg/mL Oil 300 mg IM Q3W RF: 0 oxybutynin chloride 5 mg Tablet 5 mg PO TID RF: 0 fluticasone propionate 50 mcg/actuation [place],Suspension 1 spray INTRANASAL DAILY RF: 0 glipizide 5 mg Tablet 10 mg PO QPM RF: 0 omeprazole 40 MG capsule,delayed release(DR/EC) 40 mg PO DAILY RF: 0 Discontinued hydrochlorothiazide 25 MG tablet 12.5 mg PO DAILY Qty: 0 RF: 0 Follow up/Referrals: Kathy Hoffmann MD [Primary Care Provider] - Diet/Activity/Treatments Diet: Diet as Tolerated and Low-sodium Activity: As tolerated Visit Report/Discharge Packet Instructions: Pneumonia-Adult, DI for Heart Failure, Furosemide, Amoxicillin and Clavulanic Acid Discharge Data Primary Care Provider: Kathy Hoffmann
--- NOTE | 2020-08-29 11:33 | PT.IPTN ---
Physical Therapy Treatment Note M2 PT-IP Current Condition Start: 08/28/20 10:27 Freq: NEEDED Status: Discharge Protocol: Document 08/28/20 11:20 AW (Rec: 08/28/20 12:48 AW [id number]) Physical Therapy Current Condition Current Condition Evaluation Date 08/28/20 Treatment Diagnosis pneumonia, CHF, acute respiratory failure, generalized weakness Onset Date 08/26/20 Precautions Other Precautions Serial troponins 0.166, 0.170. Hospitalist cleared pt for activity. M3 PT-IP Subjective Start: 08/28/20 10:27 Freq: NEEDED Status: Discharge Protocol: Document 08/29/20 11:23 CLB (Rec: 08/29/20 13:49 CLB [id number]) Subjective Physical Therapy Visit Type Type Treatment Note Visit Start Time 11:23 Visit Stop Time 11:33 Total Visit Minutes 10 Number of NEWSPAPER PHOTO EDITOR Visits 1 Physical Therapy Visit Comments Patient Comments Pt willing to ambulate and climb stairs before discharge. Patient Goals Return to home Therapy Pain Assessment Pain When Pain Assessed During Mobility M4 PT-IP Mobility and Gait Start: 08/28/20 10:27 Freq: NEEDED Status: Discharge Protocol: Document 08/29/20 11:23 CLB (Rec: 08/29/20 13:49 CLB [id number]) PT-Transfer Assessment Sit to and From Stand Sit to and from Stand Standby Assistance Equipment Transfer Assistive Device Gait Belt Orthotic/Prosthetic Devices or Brace: No Transfers Transfer Destination Chair Transfer Technique Stand Step Pivot Transfer Ability Level of Assist Standby Assistance Comments Mobility Comments Pt stood from chair SBA and GB was donned. Pt ambulated in grover SBA w/o AD ~220 ft to therapy stairs. Pt climbed three steps with one rail then ambulated back to room. Pt sat in chair SBA. Pt left in chair with all needs within reach. CO OP informed of pt mobility. Gait Assessment Gait Gait Assistance Required: Standby Assistance Distance (Feet) 440 Able to Maintain Weight Bearing Status Yes During Gait Assistive Devices Assistive Device None,Gait Belt Orthotic/Prosthetic Devices or Brace: No Gait Deviations General Gait Pattern Decreased Stride Length, Decreased Feet Clearance,Wide Based Gait Factors Limiting Gait Function Factors Limiting Gait Function Decreased Activity Tolerance, Decreased Strength Comments Gait Comments See mobility comments for details. Stair Climbing Assessment Evaluation Level of Assist On Stairs Standby Assistance Devices Stair Climbing Assistive Devices Left Railing Technique/Endurance Stair Climbing Direction Ascend and Descend Stair Climbing Technique Step Over Step Number of Steps Climbed 3 Stair Climbing Set # Repetitions (reps) 1 M5 PT-IP Objective Assessments Start: 08/28/20 10:27 Freq: NEEDED Status: Discharge Protocol: Document 08/28/20 11:20 AW (Rec: 08/28/20 12:53 AW [id number]) Orientation Orientation/Cognition Level of Alertness Alert Orientation Name,Age,Birthday,Month,Date, Year,Day of Week,Place, Situation Language Function Ability No Deficits Noted Safety Awareness Understands Safety Issues Memory Description No Deficits Noted Gross Range of Motion Lower Extremity ROM Assessment Within Functional Limits Strength Lower Extremity Strength Assessment Within Functional Limits Comments Strength Comments BLE grossly 4+/5 Coordination Assessment Gross Coordination Gross Coordination WNL Sensation Assessment Sensation Gross Sensation WNL M6 PT-IP Treatment Start: 08/28/20 10:27 Freq: NEEDED Status: Discharge Protocol: Document 08/28/20 11:20 AW (Rec: 08/28/20 12:53 AW [id number]) Physical Therapy Treatment Education Education Provided Safety Other Treatments Other Treatment Performed Provided education on role of PT, plan of care, and energy conservation techniques. M7 PT-IP Assessment and Plan Start: 08/28/20 10:27 Freq: NEEDED Status: Discharge Protocol: Document 08/29/20 11:23 CLB (Rec: 08/29/20 13:49 CLB [id number]) PT Summary Assessment and Plan Potential Rehabilitation Potential Good Status of Condition at Evaluation Stable Summary Impairments Strength,Bed Mobility, Transfers,Gait,Activity Tolerance Assessment Summary Pt is SBA for all mobility and is able to climb stairs safely. Pt able to ambulate SBA w/o AD ~440ft w/o SOB. Pt seems able to d/c home with family members to assist as needed. Goals Bed Mobility Goal Independent Transfer Goal Independent Gait Goal Independent Gait Distance 250 Other Goals - up/down 3 steps with left rail ascending SBA Days to Meet Goals 3 Frequency of Treatment Frequency Of Treatment Once a Day Treatment Plan Physical Therapy Treatment Plan Bed Mobility Training,Transfer Training,Gait Training, Therapeutic Exercise,Balance Retraining,Discharge Planning Recommendations To Nursing Amount of Assist Needed Standby Assistance Discharge Recommendations PT Discharge Recommendations Home with Assistance Transportation Needs at Discharge Private Vehicle
== END 2020-08-29 12:14 | disposition home or self-care (01) | DRG 193 ==
LOC: ED 20:13 → ICU 08-27 09:03 → AC 08-29 16:25 → ICU 08-29 16:25
PROVIDERS: Internal Medicine; Admitting Provider Nurse Practitioner Adult Health; Emergency Provider Emergency Medicine; Family Provider Family Medicine; PCP Family Medicine; Referring Provider Emergency Medicine; Visit Provider Nurse Practitioner Adult Health
DX: J15.9 Unspecified bacterial pneumonia (principal); J96.02 Acute respiratory failure with hypercapnia; J96.01 Acute respiratory failure with hypoxia; I50.23 Acute on chronic systolic (congestive) heart failure; N17.9 Acute kidney failure, unspecified; E87.2 Acidosis; Z95.0 Presence of cardiac pacemaker; I11.0 Hypertensive heart disease with heart failure; I25.10 Atherosclerotic heart disease of native coronary artery without angina pectoris; E78.5 Hyperlipidemia, unspecified; K21.9 Gastro-esophageal reflux disease without esophagitis; E11.65 Type 2 diabetes mellitus with hyperglycemia; Z20.828 Contact with and (suspected) exposure to other viral communicable diseases
CPT/HCPCS: 36415; 36600; 71045; 80048; 80053; 81003; 82550; 82553; 82805; 82962; 83036; 83605; 83735; 83880; 84145; 84443; 84484; 85025; 85610; 85730; 87040; 87070; 87205; 87633; 87635; 87797; 92960; 93005; 93306; 94660; 94762; 96365; 96367; 96368; 96375; 97116; 97161; 99285; 99291; A9270; C9113; J0282; J1650; J1940; J2270; J2543; J2704

== ENCOUNTER 2020-09-07 02:43 | Inpatient (IN) | payer OTHER, MEDICARE, SELFPAY ==
[2020-08-26 20:46] VITALS: BMI 33.2
[2020-08-28 05:34] VITALS: PULSE 82; RESP 27; O2SAT 98
[2020-09-07] VITALS (31 sets, daily range): BP systolic 111–159; BP diastolic 55–90; PULSE 73–111; RESP 13–45; TEMP 32–37.3; O2SAT 90–99; BMI 32.1
--- NOTE | 2020-09-07 02:56 | DI.RAD.S_ITS ---
PROCEDURE: XR CHEST 1V INDICATIONS: Shortness of breath TECHNIQUE: One view of the chest was acquired. COMPARISON: [facility], CR, XR CHEST 1V, 08/26/2020, 18:03. [facility], CR, XR CHEST 1V, 12/17/2018, 17:24. FINDINGS: Surgical changes and devices: Pacemaking device and dual chamber lead positioning normal. Lungs and pleura: Lungs are abnormal, with sequential worsening of a previously present interstitial prominence pattern from late August 2 the current examination. Generalized alveolar consolidation is present, with a patchy distribution involving the upper, mid and especially the lower lungs. No pleural effusions or pneumothorax. Mediastinum: Mediastinal contours appear normal. Heart size is mildly enlarged, globally. Bones and chest wall: No suspicious bony lesions. Overlying soft tissues appear unremarkable. IMPRESSION: Patchy alveolar infiltration pattern has progressed, mild cardiomegaly, by appearance atypical/viral pneumonia would be suspected. It remains possible that cardiogenic pulmonary edema and cardiomegaly is producing this appearance, however. Dictated by: Johnie Jimenez M.D. on 09/07/2020 at 8:25 Approved by: Johnie Jimenez M.D. on 09/07/2020 at 8:27
[2020-09-07] MEDS: NITROGLYCERIN 50 MG/250 ML INFUS..BTL IV ×2 (03:01→05:55)
[2020-09-07] MEDS: FUROSEMIDE 40 MG/4 ML VIAL IV (03:02)
--- NOTE | 2020-09-07 03:02 | ED.SOB ---
HPI - SOB/Dyspnea General Chief Complaint: Shortness of Breath/Dyspnea Stated Complaint: difficulty breathing, has heart failure Time Seen by Provider: 09/07/20 02:45 Source: patient and old records reviewed Mode of arrival: Ambulatory Limitations: no limitations History of Present Illness HPI Narrative: Male with history of diabetes pacemaker,, hyper tension hyperlipidemia discharge from the hospital on 08/29/2020 with diagnosis of pneumonia. Presenting today with sudden onset of increasing shortness of breath. He said he was doing while he has been taking his oral Lasix as prescribed. However today he felt like he could not breathe. He sounds wet and is tachypneic he appears in moderate respiratory distress. He denies any fever or chills. He has no exposure to COVID-19 that he knows of. He denies any chest pain. Breathing is significantly worse with any exertion but it appears to be also present at rest. MD Complaint: shortness of breath Context: recent illness Severity: moderate Consistency/Duration: constant Related Data Home Medications Medication Instructions Recorded Confirmed multivitamin 1 tab PO DAILY #0 11/21/11 08/26/20 albuterol sulfate [Ventolin HFA] 2 puff INH PRN PRN #0 08/23/17 08/26/20 glipizide 5 mg PO QAM #0 08/23/17 08/26/20 losartan 100 mg PO DAILY #0 08/23/17 08/26/20 zolpidem 5 mg PO BEDTIME PRN #0 08/23/17 08/26/20 amlodipine 10 mg PO DAILY 12/17/18 08/26/20 aspirin 81 mg PO DAILY 12/17/18 08/26/20 atorvastatin 80 mg PO DAILY 12/17/18 08/26/20 buspirone 30 mg PO BID 12/17/18 08/26/20 carvedilol 25 mg PO BID 12/17/18 08/26/20 fluticasone propionate 1 spray INTRANASAL DAILY 12/17/18 08/26/20 glipizide 10 mg PO QPM 12/17/18 08/26/20 lidocaine 3 patch TOPICAL DAILY 12/17/18 08/26/20 omeprazole 40 mg PO DAILY 12/17/18 08/26/20 oxybutynin chloride 5 mg PO TID 12/17/18 08/26/20 testosterone cypionate 300 mg IM Q3W 12/17/18 08/26/20 tramadol 50 mg PO Q6H PRN 12/17/18 08/26/20 Previous Rx's Medication Instructions Recorded furosemide 20 mg PO DAILY 30 Days #30 tab 08/29/20 Allergies Allergy/AdvReac Type Severity Reaction Status Date / Time Sulfa (Sulfonamide Allergy Severe RASH Verified 08/26/20 17:45 Antibiotics) [SULFA (SULFONAMIDE ANTIBIOTICS)] iodine [IODINE] Allergy Mild RASH Verified 08/26/20 17:45 Review of Systems Review of Systems ROS Unobtainable: All systems reviewed & are unremarkable except as noted in HPI and below Constitutional Constitutional: Denies chills, Denies fever(s), Denies frequent falls, Denies headache(s), Denies lethargy and Denies weakness ENT Ears, Nose, Mouth, and Throat: Denies headache(s) Cardiovascular Cardiovascular: Denies chest pain, Denies irregular heart rhythm, Denies lightheadedness, Denies palpitations, Reports dyspnea on exertion and Reports orthopnea Respiratory Respiratory: Reports chest congestion, Denies cough and Reports dyspnea on exertion Gastrointestinal Gastrointestinal: Denies abdominal pain, Denies change in bowel habits, Denies diarrhea, Denies nausea and Denies vomiting Musculoskeletal Musculoskeletal: Denies back pain and Denies myalgias Integumentary/Breasts Skin/Breast: Denies pruritus, Denies erythema, Denies rash and Denies wounds Neurologic Neurologic: Denies frequent falls, Denies headache(s) and Denies weakness Endocrine Endocrine: Denies palpitations Patient History Medical History (Updated 09/07/20 @ 06:06 by LOYD Smith) Coronary artery disease Diabetes GERD (gastroesophageal reflux disease) Hyperlipidemia Hypertension Systolic heart failure Surgical History History of colonoscopy History of local excision of skin lesion History of permanent cardiac pacemaker placement History of skin graft Social History household members: children Smoking Status: Never smoker alcohol intake: never substance use type: does not use Smoking Status: Never smoker Substance Use Type: does not use Exam Initial Vital Signs Initial Vital Signs: Vital Signs Temperature 97.5 F L 09/07/20 02:43 Pulse Rate 111 H 09/07/20 02:43 Respiratory Rate 45 H 09/07/20 02:43 Blood Pressure 155/86 H 09/07/20 02:43 Pulse Oximetry 90 L 09/07/20 02:43 GENERAL: 70-year-old male appears in acute respiratory distress and in no acute distress. HEENT: Head atraumatic,EOMI, pupils reactive, face symmetric, moist mucous membranes CARDIOVASCULAR: Regular rate and rhythm without murmurs, rubs or gallops. RESPIRATORY: Coarse bilaterally speaks in 1-2 word sentences ABDOMEN: Soft, nontender. Normoactive bowel sounds all 4 quadrants. No guarding or rebound. EXTREMITIES: Normal range of motion, no clubbing or edema. Neurovascularly intact NEUROLOGICAL: Alert and oriented x4.Normal gait and speech. Cranial nerves II through XII grossly intact. SKIN: Warm, dry, no laceration, no petechiae, no rashes or lesions. Course Orders Ordered: ED Orders 09/07/20 02:55 Consult to Respiratory Therapy Evaluate & Treat BiPAP Ventilatory Support RT PROTOCOL EKG-12 Lead Stat 09/07/20 02:56 XR chest 1V Stat 09/07/20 03:00 COVID19 Stat Complete Blood Count AUTO DIFF Stat Comprehensive Metabolic Panel Stat Lactate (Lactic Acid) Stat Magnesium Stat NT-proBNP (BNP-Adult 18+) Stat Partial Thromboplastin Time Stat Procalcitonin Stat Prothrombin Time INR Stat Troponin & CK Cardiac Panel Stat 09/07/20 03:12 Arterial Blood Gas Stat Acetaminophen (Acetaminophen 325 Mg Tablet) 650 mg PO Q6HR PRN PRN Reason: Fever/Mild Pain (1-3) Last Admin: 09/07/20 06:29 Dose: 650 mg Documented by: Al Hydrox/Mg Hydrox/Simethicone (Mag Hydrox/Alum/Simeth 30 Ml Udc) 30 ml PO Q6HR PRN PRN Reason: Dyspepsia Albuterol (Albuterol Hfa Mdi 60 Puff/8 Gm Inhaler) 2 puff INH PRN PRN PRN Reason: Shortness Of Breath Amlodipine Besylate (Amlodipine 5 Mg Tablet) 10 mg PO DAILY ZAC Aspirin (Aspirin 81 Mg Chew Tab) 81 mg PO DAILY ZAC Atorvastatin Calcium (Atorvastatin 20 Mg Tablet) 80 mg PO DAILY ZAC Bisacodyl (Bisacodyl 10 Mg Supp) 10 mg RI DAILY PRN PRN Reason: Constipation Buspirone HCl (Buspirone 15 Mg Tablet) 30 mg PO BID [facility] Calcium Carbonate (Calcium Carbonate 500 Mg Tab) 1,000 mg PO Q4HR PRN PRN Reason: Dyspepsia Dextrose (Dextrose 50 % In Water 25 Gm/50 Ml Syringe) 25 gm IV PRN PRN; Protocol PRN Reason: Hypoglycemia Docusate Sodium (Docusate 100 Mg Capsule) 100 mg PO BID PRN PRN Reason: Constipation Enoxaparin Sodium (Enoxaparin 40 Mg/0.4 Ml Syringe) 40 mg SUBCUT DAILY ZAC Furosemide (Furosemide 20 Mg/2 Ml Vial) 40 mg IV BID [facility] Nitroglycerin (Nitroglycerin) 50 mg in 250 mls @ 1.5 mls/hr IV TITRATE ZAC; Protocol Last Admin: 09/07/20 05:55 Dose: 5 mcg/min, 1.5 mls/hr Documented by: Insulin Aspart (Insulin Aspart 100 Unit/Ml Insuln Pen) 0 unit SUBCUT ACHS ZAC; Protocol Morphine Sulfate (Morphine 2 Mg/Ml Inj) 2 mg IV Q4HR PRN PRN Reason: Pain, Moderate (4-6) Naloxone HCl (Naloxone 0.4 Mg/Ml Vial) 0.2 mg IV Q2MIN PRN PRN Reason: Opiate Reversal Non-Formulary Medication (Carvedilol) 25 mg PO BID [facility] Ondansetron HCl (Ondansetron 4 Mg/2 Ml Inj) 4 mg IV Q8HR PRN PRN Reason: Nausea And Vomiting Pantoprazole Sodium (Pantoprazole 40 Mg Vial) 40 mg IV DAILY [facility] Tramadol HCl (Tramadol 50 Mg Tablet) 50 mg PO Q6H PRN PRN Reason: pain Discontinued Medications Furosemide (Furosemide 40 Mg/4 Ml Vial) 40 mg IV NOW ONE Stop: 09/07/20 02:56 Last Admin: 09/07/20 03:02 Dose: 40 mg Documented by: LINDSEY Furosemide (Furosemide 40 Mg/4 Ml Vial) 20 mg IV NOW ONE Stop: 09/07/20 06:00 Last Admin: 09/07/20 06:22 Dose: 20 mg Documented by: Nitroglycerin (Nitroglycerin) 50 mg in 250 mls @ 1.5 mls/hr IV TITRATE ZAC; Protocol Last Admin: 09/07/20 03:01 Dose: 5 mcg/min, 1.5 mls/hr Documented by: CSIEDLE Vital Signs Vital signs: Vital Signs - 8 hr 09/07/20 02:43 09/07/20 02:57 09/07/20 03:00 Temperature 97.5 F L Pulse Rate 111 H 111 H 108 H Respiratory Rate 45 H 45 H 19 Blood Pressure 155/86 H 159/90 H Pulse Oximetry 90 L 90 L 98 09/07/20 03:01 09/07/20 03:15 09/07/20 03:20 Temperature Pulse Rate 105 H 99 H Respiratory Rate 21 Blood Pressure 159/90 H Pulse Oximetry 96 99 09/07/20 03:30 09/07/20 03:45 09/07/20 04:00 Temperature Pulse Rate 93 H 95 H 86 Respiratory Rate 21 23 13 Blood Pressure 139/77 135/78 129/80 Pulse Oximetry 95 98 97 09/07/20 04:15 Temperature Pulse Rate 87 Respiratory Rate 26 H Blood Pressure 128/69 Pulse Oximetry 97 MDM - SOB/Dyspnea Lab Data Attestation: I reviewed the patient's lab results. Result diagrams: 09/07/20 03:00 09/07/20 03:00 Labs: Lab Results 09/07/20 09/07/20 09/07/20 Range/Units 03:00 03:00 03:00 WBC 10.8 (4.5-11.0) X10^3/uL RBC 5.77 (4.5-5.9) X10^6/uL Hgb 15.4 (13.5-17.5) g/dL Hct 47.0 (41-53) % MCV 81.5 (80-100) fL MCH 26.7 (26-34) PG MCHC 32.8 (30-36) % RDW 14.4 (11.6-14.8) % Plt Count 253 (150-400) X10^3/uL Neut % (Auto) 70.9 (50-75) % Lymph % (Auto) 16.5 L (25-40) % Crosby % (Auto) 8.8 (3-14) % Eos % (Auto) 2.9 (2-4) % Baso % (Auto) 0.9 (0-2) % Neut # (Auto) 7600 H (0012-0076) /uL Lymph # (Auto) 1800 (4345-9240) /uL Crosby # (Auto) 1000 H (0-900) /uL Eos # (Auto) 300 (0-450) /uL Baso # (Auto) 100 (0-100) /uL PT 11.7 (10.1-12.7) SECONDS INR 1.0 (0.9-1.3) APTT 45 H D (26.4-36.2) SECONDS ABG pH (7.35-7.45) ABG pCO2 (35-45) mmHg ABG pO2 (80-100) mmHg ABG HCO3 (22-26) mmol/L ABG Total CO2 (21-31) mmol/L ABG O2 Saturation (95-100) % ABG Base Excess (-2-2) mmol/L FiO2 Sodium (137-145) mmol/L Potassium (3.4-5.1) mmol/L Chloride (98-107) mmol/L Carbon Dioxide (22-32) mmol/L BUN (9-20) mg/dL Creatinine (0.66-1.25) mg/dL Estimated GFR (>60) mL/min BUN/Creatinine Ratio (6-22) Glucose (80-110) mg/dL Lactate (0.7-2.1) mmol/L Calcium (8.4-10.2) mg/dL Magnesium 2.0 (1.6-2.3) mg/dL Total Bilirubin (0.2-1.3) mg/dL AST (17-59) IU/L ALT (<50) IU/L Alkaline Phosphatase (38-126) U/L Total Creatine Kinase 36 L (55-170) U/L CK-MB (CK-2) TNP CK-MB (CK-2) Rel Index TNP Troponin I 0.013 (0.01-0.034) ng/mL NT-Pro-B Natriuret Pep 2540 H (<125) pg/mL Total Protein (6.3-8.2) g/dL Albumin (3.5-5.0) g/dL Globulin (1.7-4.1) g/dL Albumin/Globulin Ratio (1.0-2.8) Procalcitonin (<0.5) ng/mL SARS-CoV-2 (PCR) (Negative) 09/07/20 09/07/20 09/07/20 Range/Units 03:00 03:00 03:00 WBC (4.5-11.0) X10^3/uL RBC (4.5-5.9) X10^6/uL Hgb (13.5-17.5) g/dL Hct (41-53) % MCV (80-100) fL MCH (26-34) PG MCHC (30-36) % RDW (11.6-14.8) % Plt Count (150-400) X10^3/uL Neut % (Auto) (50-75) % Lymph % (Auto) (25-40) % Crosby % (Auto) (3-14) % Eos % (Auto) (2-4) % Baso % (Auto) (0-2) % Neut # (Auto) (3170-7704) /uL Lymph # (Auto) (8878-5134) /uL Crosby # (Auto) (0-900) /uL Eos # (Auto) (0-450) /uL Baso # (Auto) (0-100) /uL PT (10.1-12.7) SECONDS INR (0.9-1.3) APTT (26.4-36.2) SECONDS ABG pH (7.35-7.45) ABG pCO2 (35-45) mmHg ABG pO2 (80-100) mmHg ABG HCO3 (22-26) mmol/L ABG Total CO2 (21-31) mmol/L ABG O2 Saturation (95-100) % ABG Base Excess (-2-2) mmol/L FiO2 Sodium 141 (137-145) mmol/L Potassium 3.7 (3.4-5.1) mmol/L Chloride 108 H (98-107) mmol/L Carbon Dioxide 28 (22-32) mmol/L BUN 19 (9-20) mg/dL Creatinine 1.05 (0.66-1.25) mg/dL Estimated GFR > 60.0 (>60) mL/min BUN/Creatinine Ratio 18.1 (6-22) Glucose 177 H (80-110) mg/dL Lactate 1.2 (0.7-2.1) mmol/L Calcium 8.9 (8.4-10.2) mg/dL Magnesium (1.6-2.3) mg/dL Total Bilirubin 0.7 (0.2-1.3) mg/dL AST 24 (17-59) IU/L ALT 27 (<50) IU/L Alkaline Phosphatase 80 (38-126) U/L Total Creatine Kinase (55-170) U/L CK-MB (CK-2) CK-MB (CK-2) Rel Index Troponin I (0.01-0.034) ng/mL NT-Pro-B Natriuret Pep (<125) pg/mL Total Protein 7.6 (6.3-8.2) g/dL Albumin 4.2 (3.5-5.0) g/dL Globulin 3.4 (1.7-4.1) g/dL Albumin/Globulin Ratio 1.2 (1.0-2.8) Procalcitonin < 0.05 (<0.5) ng/mL SARS-CoV-2 (PCR) (Negative) 09/07/20 09/07/20 Range/Units 03:00 03:12 WBC (4.5-11.0) X10^3/uL RBC (4.5-5.9) X10^6/uL Hgb (13.5-17.5) g/dL Hct (41-53) % MCV (80-100) fL MCH (26-34) PG MCHC (30-36) % RDW (11.6-14.8) % Plt Count (150-400) X10^3/uL Neut % (Auto) (50-75) % Lymph % (Auto) (25-40) % Crosby % (Auto) (3-14) % Eos % (Auto) (2-4) % Baso % (Auto) (0-2) % Neut # (Auto) (2300-6673) /uL Lymph # (Auto) (3620-5277) /uL Crosby # (Auto) (0-900) /uL Eos # (Auto) (0-450) /uL Baso # (Auto) (0-100) /uL PT (10.1-12.7) SECONDS INR (0.9-1.3) APTT (26.4-36.2) SECONDS ABG pH 7.39 (7.35-7.45) ABG pCO2 39.4 (35-45) mmHg ABG pO2 82 (80-100) mmHg ABG HCO3 24 (22-26) mmol/L ABG Total CO2 25 (21-31) mmol/L ABG O2 Saturation 96 (95-100) % ABG Base Excess -1.0 (-2-2) mmol/L FiO2 40 Sodium (137-145) mmol/L Potassium (3.4-5.1) mmol/L Chloride (98-107) mmol/L Carbon Dioxide (22-32) mmol/L BUN (9-20) mg/dL Creatinine (0.66-1.25) mg/dL Estimated GFR (>60) mL/min BUN/Creatinine Ratio (6-22) Glucose (80-110) mg/dL Lactate (0.7-2.1) mmol/L Calcium (8.4-10.2) mg/dL Magnesium (1.6-2.3) mg/dL Total Bilirubin (0.2-1.3) mg/dL AST (17-59) IU/L ALT (<50) IU/L Alkaline Phosphatase (38-126) U/L Total Creatine Kinase (55-170) U/L CK-MB (CK-2) CK-MB (CK-2) Rel Index Troponin I (0.01-0.034) ng/mL NT-Pro-B Natriuret Pep (<125) pg/mL Total Protein (6.3-8.2) g/dL Albumin (3.5-5.0) g/dL Globulin (1.7-4.1) g/dL Albumin/Globulin Ratio (1.0-2.8) Procalcitonin (<0.5) ng/mL SARS-CoV-2 (PCR) Negative (Negative) Imaging Data Chest x-ray: Radiologist's Impression: Preliminary report: Bilateral infiltrates suggestive of pneumonia. A component of pulmonary edema may also be present ECG Data Attestation: I personally reviewed and interpreted this ECG as follows: Prior ECG tracings: available for review Interpretation: Wide complex paced rhythm rate 111 similar to previous EKGs MDM Narrative Medical decision making narrative: This is very similar to how patient presented previously. He is immediately placed on BiPAP which seems to help him almost immediately. He is given nitroglycerin along with Lasix to help with diuresis. Echocardiogram from previously does show an EF of 25-30%. He denies any fever or chills he was previously doing well. He has no leukocytosis and is afebrile. Rigoberto HARP agrees with admission no antibiotics at this time. Discharge Plan Departure Patient Disposition: Admitted As Inpatient Clinical Impression: Congestive heart failure Qualifiers: Heart failure type: systolic Heart failure chronicity: acute on chronic Qualified Code(s): I50.23 - Acute on chronic systolic (congestive) heart failure Admit Date/Time: 09/07/20 04:29 Admit Provider: Souleymane Jett
[2020-09-07 03:07] LABS: Add Manual Diff / Slide Review NO; Basophils Absolute Auto 100 /uL (0-100); Basophils Percent Auto 0.9 % (0-2); Eosinophils Absolute Auto 300 /uL (0-450); Eosinophils Percent Auto 2.9 % (2-4); Hemoglobin 15.4 g/dL (13.5-17.5); Lymphocytes Absolute Auto 1800 /uL (1100-4500); Lymphocytes Percent Auto 16.5 % (25-40); Mean Corpuscular HGB Conc 32.8 % (30-36); Mean Corpuscular Hemoglobin 26.7 PG (26-34); Mean Corpuscular Volume 81.5 fL (80-100); Monocytes Absolute Auto 1000 /uL (0-900); Monocytes Percent Auto 8.8 % (3-14); Neutrophils Absolute Auto 7600 /uL (1500-7000); Neutrophils Percent Auto 70.9 % (50-75); Platelet Count 253 X10^3/uL (150-400); Red Blood Cell Count 5.77 X10^6/uL (4.5-5.9); Red Cell Distribution Width 14.4 % (11.6-14.8); White Blood Cell Count 10.8 X10^3/uL (4.5-11.0)
[2020-09-07 03:18] LABS: Lactate (Lactic Acid) 1.2 mmol/L (0.7-2.1)
[2020-09-07 03:20] LABS: Alanine Aminotransferase 27 IU/L (<50); Albumin 4.2 g/dL (3.5-5.0); Albumin Globulin Ratio 1.2 (1.0-2.8); Alkaline Phosphatase 80 U/L (38-126); Aspartate Aminotransferase 24 IU/L (17-59); BUN Creatinine Ratio 18.1 (6-22); Bilirubin Total 0.7 mg/dL (0.2-1.3); Blood Urea Nitrogen 19 mg/dL (9-20); Calcium 8.9 mg/dL (8.4-10.2); Carbon Dioxide 28 mmol/L (22-32); Chloride 108 mmol/L (98-107); Estimated Glomerular Filt Rate > 60.0 mL/min (>60); Globulin 3.4 g/dL (1.7-4.1); Glucose 177 mg/dL (80-110); HEMOLYSIS < 15 (0-50); Potassium 3.7 mmol/L (3.4-5.1); Sodium 141 mmol/L (137-145); Total Protein 7.6 g/dL (6.3-8.2)
[2020-09-07 03:21] LABS: Creatine Kinase 36 U/L (55-170)
[2020-09-07 03:25] LABS: Fractionated Inspired Oxygen 40; HCO3 ABG 24 mmol/L (22-26); Oxygen Saturation ABG 96 % (95-100); PCO2 ABG 39.4 mmHg (35-45); PO2 ABG 82 mmHg (80-100); TCO2 ABG 25 mmol/L (21-31); pH ABG 7.39 (7.35-7.45)
--- NOTE | 2020-09-07 03:28 | PC.NURSE ---
Pt arrives POV with family member with obvious increased WOB, labored, RR 45, 90% RA. Recently hospitalized here with PNA and needing BiPAP. [employer] Cough and audible wet lungs without auscultation. Resting on stretcher, placed on 3L NC with minimal improvement. RT in room for EKG, ABG, BIPAP. IV placed x 2, Nitro gtt started and given 200mcg bolus NTG IVP per Dr Walter verbal order. 40mg IVP Lasix given. Currently on BiPAP I:E 18:6, I-time 0.9, 40% O2, RR 24 spontaneous. Appears more comfortable. HR 97 paced. BP 139/77 and remaining stable on NTG gtt. Will monitor
[2020-09-07 03:34] LABS: NT-proBNP (BNP-Adult 18+) 2540 pg/mL (<125); Troponin I 0.013 ng/mL (0.01-0.034)
[2020-09-07 03:38] LABS: COVID19 -Nasal RAPID Negative (Negative); Procalcitonin < 0.05 ng/mL (<0.5)
[2020-09-07 03:40] LABS: Prothrombin Time 11.7 SECONDS (10.1-12.7)
[2020-09-07 03:51] LABS: PTT Partial Thromboplastin Tim 45 SECONDS (26.4-36.2)
--- NOTE | 2020-09-07 04:37 | PM.HP.1 ---
History of Present Illness History of Present Illness Date Patient Seen: 09/07/20 Time Patient Seen: 05:20 Chief complaint: difficulty breathing, has heart failure Narrative: Mr. Raymond Zazueta is a 70-year-old male with a past medical history significant for coronary artery disease, status post pacemaker implantation, hypertension, hyperlipidemia, type 2 diabetes and GERD who presents to the ER with acute onset shortness of breath. The patient reports that he had increasing shortness of breath during the day but denies fevers or chills, cough, nausea vomiting or diaphoresis. He went to bed and woke acutely dyspneic. He reports no complaints of chest pain palpitations and he has an implanted pacemaker. The patient states this felt the same in abrupt onset as his previous admission from 08/26/20 to 08/29/20 when the patient was admitted for acute on chronic heart failure and pneumonia. The patient stated he recovered well and was in his usual state health following discharge until yesterday. Patient denies complaints of fevers or chills headaches or dizziness, nasal congestion or sore throat. Denies complaints of chest pain or palpitations and shortness of breath with exertion over 1 week and a dry nonproductive cough. He denies complaints of epigastric or abdominal pain, nausea vomiting, diarrhea or constipation. He has had no difficulty urinating and denies extremity swelling. Upon arrival to the ER patient is afebrile with temperature 97.5?, heart rate of 111, blood pressure 155/86, respiratory rate of 45 saturating 90% on room air. Chest x-ray is obtained finding moderately enlarged cardiac silhouette with extensive airspace and interstitial infiltrates throughout lungs particular consolidation in the right lower lobe. Twelve lead EKG demonstrates sinus rhythm at a rate of 111 with ventricular pacing. On laboratory analysis patient has white count of 10.8 a hemoglobin of 15.4, hematocrit of 47.0 and platelets of 253. His PT is 11.7, INR 1.0 and PTT of 45. His electrolytes are within normal limits and has a BUN of 19 and creatinine 1.05. His magnesium is 2.0 and nonfasting glucose is 177. His liver functions are all within normal limits. He has a lactic acid of 1.2 and a procalcitonin that is less than 0.05. Total CK is 36 and troponin is 0.013. ProBNP is elevated to 1540. In the ER the patient is placed on BiPAP at 40% an ABG is obtained a pH of 7.39, pCO2 of 39.4, PO2 of 82, HC03 24 and a base excess of -1. Patient is also started on a nitro drip at 5 mics per minute and receives Lasix 40 mg IV. Patient is admitted to the hospital service for acute on chronic systolic heart failure. Patient History Medical History (Updated 09/07/20 @ 06:06 by LOYD Smith) Coronary artery disease Diabetes GERD (gastroesophageal reflux disease) Hyperlipidemia Hypertension Systolic heart failure Surgical History History of colonoscopy History of local excision of skin lesion History of permanent cardiac pacemaker placement History of skin graft Family & Social History Family history unavailable: No (Unable to obtain secondary to dyspnea and BiPAP) Social History: household members children Safety & Behavioral: Feels Safe in Current Yes Environment Been Physically Hurt or No Threatened By a Person Tobacco & Substance use: Smoking Status Never smoker alcohol intake never Substance Use Type does not use Meds Home Medications and Allergies Home Medications Medication Instructions Recorded Confirmed Type multivitamin 1 tab PO DAILY #0 11/21/11 08/26/20 History albuterol sulfate [Ventolin HFA] 2 puff INH PRN PRN #0 08/23/17 08/26/20 History glipizide 5 mg PO QAM #0 08/23/17 08/26/20 History losartan 100 mg PO DAILY #0 08/23/17 08/26/20 History zolpidem 5 mg PO BEDTIME PRN #0 08/23/17 08/26/20 History amlodipine 10 mg PO DAILY 12/17/18 08/26/20 History aspirin 81 mg PO DAILY 12/17/18 08/26/20 History atorvastatin 80 mg PO DAILY 12/17/18 08/26/20 History buspirone 30 mg PO BID 12/17/18 08/26/20 History carvedilol 25 mg PO BID 12/17/18 08/26/20 History fluticasone propionate 1 spray INTRANASAL DAILY 12/17/18 08/26/20 History glipizide 10 mg PO QPM 12/17/18 08/26/20 History lidocaine 3 patch TOPICAL DAILY 12/17/18 08/26/20 History omeprazole 40 mg PO DAILY 12/17/18 08/26/20 History oxybutynin chloride 5 mg PO TID 12/17/18 08/26/20 History testosterone cypionate 300 mg IM Q3W 12/17/18 08/26/20 History tramadol 50 mg PO Q6H PRN 12/17/18 08/26/20 History furosemide 20 mg PO DAILY 30 Days #30 tab 08/29/20 Rx Allergies Allergy/AdvReac Type Severity Reaction Status Date / Time Sulfa (Sulfonamide Allergy Severe RASH Verified 08/26/20 17:45 Antibiotics) [SULFA (SULFONAMIDE ANTIBIOTICS)] iodine [IODINE] Allergy Mild RASH Verified 08/26/20 17:45 Review of Systems Review of Systems ROS: Yes All systems reviewed with the patient and are negative except as otherwise documented Exam Vital Signs (past 8 hours): - 09/07/20 02:43 09/07/20 02:57 09/07/20 03:00 Temperature 97.5 F L Pulse Rate 111 H 111 H 108 H Respiratory Rate 45 H 45 H 19 Blood Pressure 155/86 H 159/90 H Pulse Oximetry 90 L 90 L 98 09/07/20 03:01 09/07/20 03:15 09/07/20 03:20 Temperature Pulse Rate 105 H 99 H Respiratory Rate 21 Blood Pressure 159/90 H Pulse Oximetry 96 99 09/07/20 03:30 09/07/20 03:45 09/07/20 04:00 Temperature Pulse Rate 93 H 95 H 86 Respiratory Rate 21 23 13 Blood Pressure 139/77 135/78 129/80 Pulse Oximetry 95 98 97 09/07/20 04:15 Temperature Pulse Rate 87 Respiratory Rate 26 H Blood Pressure 128/69 Pulse Oximetry 97 Fraction of Inspired Oxygen 40 Oxygen Delivery Method BiPAP Narrative Exam Narrative: GENERAL APPEARANCE: well developed, obese male with a BMI of 32.1, sitting upright in bed dyspneic on BiPAP. HEENT: Normocephalic, PERRLA, conjunctiva clear, EOMs intact without nystagmus, no rhinorrhea, mucous membranes are dry and pink with dried oral secretions. NECK/THYROID: neck supple, no visible JVD, no carotid bruit, no thyromegaly, trachea midline. LYMPH NODES: no cervical or supraclavicular lymphadenopathy. SKIN: [place], warm and dry, no visible lesions, rashes. HEART: Tachycardic wide beat paced rhythm on monitor, S1-S2, no murmur appreciated, brisk capillary refill, trace peripheral edema LUNGS: Bilateral coarse breath sounds right greater than left, faint crackles with right lower lobe end-expiratory wheezing posteriorly, no spontaneous cough. CHEST: Tachypneic, symmetrical movement, no retractions, good tidal volume. ABDOMEN: Soft, protuberant, dull to percussion, no abdominal tenderness or organomegaly, active bowel tones, BACK: Normal curvature, nontender to palpation. EXTREMITIES: moves all extremities, strength is 5/5 and symmetrical, surgical scarring with tissue loss posterior medial right ankle, well-healed surgical scar right thigh NEUROLOGIC: AAO x 3, no focal neurologic deficits, cranial nerves II-XII grossly intact, sensation intact to light touch, hearing grossly normal to speech. PSYCH: Cooperative, stable behavior Objective Labs Result Diagrams: 09/07/20 03:00 09/07/20 03:00 Labs: Laboratory Results - last 24 hr 09/07/20 09/07/20 09/07/20 03:00 03:00 03:00 WBC 10.8 RBC 5.77 Hgb 15.4 Hct 47.0 MCV 81.5 MCH 26.7 MCHC 32.8 RDW 14.4 Plt Count 253 Neut % (Auto) 70.9 Lymph % (Auto) 16.[address] [place] % (Auto) 8.8 Eos % (Auto) 2.9 Baso % (Auto) 0.9 Neut # (Auto) 7600 H Lymph # (Auto) 1800 [place] # (Auto) 1000 H Eos # (Auto) 300 Baso # (Auto) 100 PT 11.7 INR 1.0 APTT 45 H D ABG pH ABG pCO2 ABG pO2 ABG HCO3 ABG Total CO2 ABG O2 Saturation ABG Base Excess FiO2 Sodium Potassium Chloride Carbon Dioxide BUN Creatinine Estimated GFR BUN/Creatinine Ratio Glucose Lactate Calcium Magnesium 2.0 Total Bilirubin AST ALT Alkaline Phosphatase Total Creatine Kinase 36 L CK-MB (CK-2) TNP CK-MB (CK-2) Rel Index TNP Troponin I 0.013 NT-Pro-B Natriuret Pep 2540 H Total Protein Albumin Globulin Albumin/Globulin Ratio Procalcitonin SARS-CoV-2 (PCR) 09/07/20 09/07/20 09/07/20 03:00 03:00 03:00 WBC RBC Hgb Hct MCV MCH MCHC RDW Plt Count Neut % (Auto) Lymph % (Auto) [place] % (Auto) Eos % (Auto) Baso % (Auto) Neut # (Auto) Lymph # (Auto) [place] # (Auto) Eos # (Auto) Baso # (Auto) PT INR APTT ABG pH ABG pCO2 ABG pO2 ABG HCO3 ABG Total CO2 ABG O2 Saturation ABG Base Excess FiO2 Sodium 141 Potassium 3.7 Chloride 108 H Carbon Dioxide 28 BUN 19 Creatinine 1.05 Estimated GFR > 60.0 BUN/Creatinine Ratio 18.1 Glucose 177 H Lactate 1.2 Calcium 8.9 Magnesium Total Bilirubin 0.7 AST 24 ALT 27 Alkaline Phosphatase 80 Total Creatine Kinase CK-MB (CK-2) CK-MB (CK-2) Rel Index Troponin I NT-Pro-B Natriuret Pep Total Protein 7.6 Albumin 4.2 Globulin 3.4 Albumin/Globulin Ratio 1.2 Procalcitonin < 0.05 SARS-CoV-2 (PCR) 09/07/20 09/07/20 03:00 03:12 WBC RBC Hgb Hct MCV MCH MCHC RDW Plt Count Neut % (Auto) Lymph % (Auto) [place] % (Auto) Eos % (Auto) Baso % (Auto) Neut # (Auto) Lymph # (Auto) [place] # (Auto) Eos # (Auto) Baso # (Auto) PT INR APTT ABG pH 7.39 ABG pCO2 39.4 ABG pO2 82 ABG HCO3 24 ABG Total CO2 25 ABG O2 Saturation 96 ABG Base Excess -1.0 FiO2 40 Sodium Potassium Chloride Carbon Dioxide BUN Creatinine Estimated GFR BUN/Creatinine Ratio Glucose Lactate Calcium Magnesium Total Bilirubin AST ALT Alkaline Phosphatase Total Creatine Kinase CK-MB (CK-2) CK-MB (CK-2) Rel Index Troponin I NT-Pro-B Natriuret Pep Total Protein Albumin Globulin Albumin/Globulin Ratio Procalcitonin SARS-CoV-2 (PCR) Negative Assessment & Plan Assessment & Plan narrative: Patient is a 70-year-old male with history of CAD, pacemaker, type 2 diabetes, hypertension, GERD admitted to the hospital with acute on chronic heart failure consistent with flash pulmonary edema. 1. Acute respiratory failure with hypoxia, present on admission, active. -on presentation to the ER the patient has respiratory rate of 45 an oxygen saturation of 90% on room air. Started on BiPAP in the ED and continued on to admission. -initial ABGs obtained on BiPAP with 40% FiO2: PH 7.39, pCO2 of 39.4, PO2 82, HC03 24 and base excess -1. PF ratio is 205 -chest x-ray identifies Moderately enlarged heart with extensive with airspace and interstitial infiltrates in both lungs with particular consolidation in the right lower lobe. No appearance of pneumonia,-the patient is afebrile, white count is 10.8 with slight elevation neutrophils at 7600 a likely reactive procalcitonin is less than 0.05. -patient received Lasix 40 mg in the ER and started on nitroglycerin drip at 5 micrograms/minute treat underlying pulmonary edema. 2. Acute on chronic systolic heart failure, flash pulmonary edema, active. -echo 08/26 shows marked decline in LV function with LVEF 25-30%, moderate to severely dilated LV, new fairly diffuse regional wall motion abnormalities with severely hypokinetic to akinetic portions of LV, decreased RV function versus previous echo 01/2020 LVEF was 50-55% without obvious wall motion abnormalities. Current echo findings may be explained by myocardial stunning after patient received cardioversion x2 in the ED. -chest x-ray reveals moderately enlarged cardiac silhouette. -patient received Lasix in the emergency department, started on nitroglycerin drip of 5 mcg with improvement in symptoms. -added Furosemide 20 mg IV x1 now and furosemide 40 mg twice daily. 3. Hypertension, chronic, stable. -blood pressure is elevated upon admission at 155/86. -blood pressure remains stable on nitroglycerin infusion at 111/57. -continued home regimen of carvedilol 25 mg twice daily, amlodipine 10 mg daily. -will hold losartan for now and closely follow blood pressure. 4. Coronary artery disease, chronic, stable -patient with a history of heart disease, documented inferior inferior apical wall deficits on nuclear med stress test June 2015. -prior documentation of Q-waves in the inferior leads with a right bundle branch block now presenting with sinus tachycardia with atrial sensing and ventricular pacing. -cardiac panel finds total CK of 36 and troponin of 0.013. -continue patient's routine of aspirin 81 mg and atorvastatin 80 mg daily 5. Diabetes type 2 with acute hyperglycemia, chronic, stable. -serum glucose on admission is 177 -hemoglobin A1c 7.4 on 09/27/2019 demonstrates adequate long-term control. -Patient takes glipizide 5 mg twice daily at home, will hold glipizide. -ordered fingerstick blood sugars a.c. and hs with low-dose correctional insulin. -consistent carbohydrate heart healthy diet 6. History of pacemaker -12 lead EKG reveals sinus rhythm at 111 beats per minute with atrial sensing with ventricular pacing with a IA interval of 172 milliseconds. VTE prophylaxis: Enoxaparin 40 mg daily IV fluid: Nitroglycerin infusion, normal saline TKO Diet: Consistent carbohydrate, heart healthy 2 g low-sodium Code status: Full Code, the patient designates his daughter to be his surrogate decision maker. The patient is admitted to the intensive care unit to the severity of his respiratory distress requiring further treatment and interventions with a complex treatment plan to be event complications or adverse events. The patient is admitted to the ICU inpatient status with expected length of stay to be greater than 2 midnights. COVID-19 COVID-19 status: Negative Result date/Date tested (Pos, Neg/Pending): 09/07/20
--- NOTE | 2020-09-07 05:20 | RT ---
helped in transport from ED to ICU room w/o incident. Pt ambulated to bed from [facility].
--- NOTE | 2020-09-07 06:03 | DI.ECHO.S_ITS ---
[facility] +---------+ [facility] +---------+ : : [address] : : : : [id number] : : : : Phone: [phone]+ Echocardiogram Report + + :Name: RAISA RICKS Study Date: 09/07/2020 Height: 69 in : :[facility] Weight: 217 lb : : Gender: Male BSA: 2.1 m2 : :: 1950 Age: 70 yrs BP: 135/77 mmHg: :Reason For Study: SYSTOLIC HEART FAILURE : :Ordering Physician: KEVIN, : :GABY HARP Performed By: Deirdre Powers : :Referring: GABY BROWN : + + Interpretation Summary The left ventricle is moderately dilated. Left ventricular systolic function is moderate to severely reduced. The ejection fraction is estimated to be 25- 30%. This is unchanged compared to the previous study. Compared to the prior exam, the left ventricular wall motion has not changed. The right ventricle is mildly dilated. There is a pacemaker lead in the right ventricle. The right ventricular systolic function is normal. Procedure: A two-dimensional transthoracic echocardiogram with color flow was performed in limited views only. The patient has a paced rhythm. The heart rate ranged between 76-98 bpm during the study. Left Ventricle: The left ventricle is moderately dilated. The estimated left ventricular end diastolic volume is 173 ml. Left ventricular systolic function is moderate to severely reduced. The ejection fraction is estimated to be 25- 30%. This is unchanged compared to the previous study. Compared to the prior exam, the left ventricular wall motion has not changed. Right Ventricle: The right ventricle is mildly dilated. There is a pacemaker lead in the right ventricle. The right ventricular systolic function is normal. Atria: The left atrium is mildly dilated. Right atrial size is normal. There is a catheter/pacemaker lead seen in the right atrium. Great Vessels: The IVC is of normal diameter and collapses greater than 50% with a sniff. This suggests a low right atrial pressure of 3 mm Hg. Pericardium/ Pleura There is no pericardial effusion. There is no pleural effusion. MMode/2D Measurements & Calculations LVIDd: 5.6 cm LA A2 area: 23.0 cm2 LVIDs: 4.8 cm LA A4 area: 24.1 cm2 FS: 15.1 % LA length (vol): 5.5 cm IVSd: 1.1 cm LA vol: 84.9 ml LVPWd: 1.1 cm LA vol index: 39.7 ml/m2 LV herron. diameter/BSA (cm/m^2): 2.6 LV sys. diameter/BSA (cm/m^2): 2.2 RA long axis: 4.6 cm RVD1 (basal): 4.3 cm RA area: 15.4 cm2 TAPSE: 1.8 cm RA vol: 43.3 ml RA : 20.3 ml/m2 IVC diam: 2.2 cm Reading Physician:01:56 PM
[2020-09-07] MEDS: FUROSEMIDE 40 MG/4 ML VIAL 20 MG IV (06:22)
[2020-09-07] MEDS: ACETAMINOPHEN 325 MG TABLET 650 MG PO (06:29)
--- NOTE | 2020-09-07 06:50 | PC.NURSE ---
0500- Patient admitted to room 226. Patient on Bipap at 18/5 and 35%. Patient states he is in no distress. Lungs are coarse throught all lung brown right greater than left. No catheter in place at this time patient feels he is able to use the urinal without difficulty. Alert oriented and cooperative with care. NTG gtt infusing at 5mcg/minute vitals wnl. 0615- lasix 20mg IV given per order. 0640- Placed on high flow 02 at 5liters. Mouth care done and patient medicated for c/o headache. Tolerating being off Bipap at this time. Will monitor closely.
[2020-09-07] MEDS: PANTOPRAZOLE 40 MG VIAL IV (09:25)
[2020-09-07] MEDS: ATORVASTATIN 20 MG TABLET 80 MG PO (09:26)
[2020-09-07] MEDS: ENOXAPARIN 40 MG/0.4 ML SYRINGE SUBCUT (09:26)
[2020-09-07] MEDS: AMLODIPINE 5 MG TABLET 10 MG PO (09:26)
[2020-09-07] MEDS: ASPIRIN 81 MG CHEW TAB PO (09:26)
[2020-09-07] MEDS: BUSPIRONE 15 MG TABLET 30 MG PO ×2 (09:27→20:55)
[2020-09-07] MEDS: carvediloL 12.5 MG TABLET 25 MG PO ×2 (09:27→20:56)
[2020-09-07] MEDS: SODIUM CHLORIDE 0.9% FLUSH 10 ML IV ×2 (09:28→20:58)
[2020-09-07] MEDS: FUROSEMIDE 20 MG/2 ML VIAL 40 MG IV ×2 (09:30→20:57)
[2020-09-07] MEDS: TRAMADOL 50 MG TABLET PO ×2 (10:56→20:55)
--- NOTE | 2020-09-07 11:31 | CM.DANOTE ---
DCP: Case received, EMR reviewed and met with patient. Introduced self and role. Was able to obtain information from patient regarding his baseline activity status prior to hospitalization, as well as his current living situation. DCP assessment completed with information currently available. Patient is a 70 year old male who admitted early this morning to the care of the hospitalist team. PCP: Dr. Davis ([facility]). Payer: confirmed: [employer]/Medicare A. Patient came to the hospital via private vehicle secondary to having increased shortness of breath, dyspnea. Patient holds diagnosis of pulmonary edema, and is currently on BIPAP. Patient also has history of diabetes, and has a pacemaker. Patient is here getting Lasix. He holds current diagnosis of CHF. Met with patient in his room. He was sitting up in bed with BIPAP, and alert and oriented. He was able to answer questions. Confirmed that he resides in [facility] with his son, Raymond, and daughter. He is currently employed at the [employer]. Patient indicated that he is independent at home, but no longer drives. He has not been on home oxygen. P: DCP to continue to follow for any needs, or if any resources are needed. He does not currently have P.T. orders, but will see if patient is in need of P.T. Patient should be able to go home when he is medically stable. Khadijah Beauchamp RN/Dietetic Intern
[2020-09-07 13:35] LABS: Add Manual Diff / Slide Review NO; Basophils Absolute Auto 0 /uL (0-100); Basophils Percent Auto 0.3 % (0-2); Eosinophils Absolute Auto 100 /uL (0-450); Eosinophils Percent Auto 1.7 % (2-4); Hematocrit 44.8 % (41-53); Hemoglobin 14.6 g/dL (13.5-17.5); Lymphocytes Absolute Auto 1700 /uL (1100-4500); Lymphocytes Percent Auto 20.6 % (25-40); Mean Corpuscular HGB Conc 32.6 % (30-36); Mean Corpuscular Hemoglobin 26.7 PG (26-34); Mean Corpuscular Volume 81.8 fL (80-100); Monocytes Absolute Auto 900 /uL (0-900); Monocytes Percent Auto 10.3 % (3-14); Neutrophils Absolute Auto 5500 /uL (1500-7000); Neutrophils Percent Auto 67.1 % (50-75); Platelet Count 218 X10^3/uL (150-400); Red Blood Cell Count 5.48 X10^6/uL (4.5-5.9); Red Cell Distribution Width 14.9 % (11.6-14.8); White Blood Cell Count 8.3 X10^3/uL (4.5-11.0)
[2020-09-07 14:11] LABS: Blood Urea Nitrogen 19 mg/dL (9-20); Calcium 8.6 mg/dL (8.4-10.2); Carbon Dioxide 29 mmol/L (22-32); Chloride 106 mmol/L (98-107); Estimated Glomerular Filt Rate > 60.0 mL/min (>60); Glucose 123 mg/dL (80-110); HEMOLYSIS < 15 (0-50); Potassium 3.7 mmol/L (3.4-5.1); Sodium 141 mmol/L (137-145)
[2020-09-07] MEDS: MORPHINE 2 MG/ML INJ IV (20:57)
--- NOTE | 2020-09-07 21:30 | PC.NURSE ---
Evening shift note: A/Ox3, able to make needs known, sitting up in chair, currently on 2 LNC from [facility] 30%/30L tolerating it well. Pt c/o generalized pain states he usually takes his ultram, but wants something a little stronger tonight 2 mg of Morphine administered as ordered, pt states he feels better. 40mg Lasix administered at 2100 u/o 525 cc in urinal. Bed low and locked, call light within reach, will continue to monitor.
[2020-09-08] VITALS (12 sets, daily range): BP systolic 117–139; BP diastolic 62–77; PULSE 67–85; RESP 17–24; TEMP 35.9–36.8; O2SAT 88–97
--- NOTE | 2020-09-08 08:00 | PC.NURSE ---
Addendum entered by Maria Fernanda Ascencio R.N. 09/08/20 14:12: Pacer interrogated, report given to Dr Mederos. Original Note: 0740- Patient had minute and a half run of VT up into thw 120's. Dr Mederos aware. Patient asymptomatic and sleeping through event.
[2020-09-08] MEDS: FUROSEMIDE 20 MG/2 ML VIAL 40 MG IV ×2 (08:13→20:35)
[2020-09-08] MEDS: PANTOPRAZOLE 40 MG VIAL IV (08:13)
[2020-09-08] MEDS: ACETAMINOPHEN 325 MG TABLET 650 MG PO (08:14)
[2020-09-08] MEDS: ASPIRIN 81 MG CHEW TAB PO (08:14)
[2020-09-08] MEDS: ENOXAPARIN 40 MG/0.4 ML SYRINGE SUBCUT (08:14)
[2020-09-08] MEDS: ATORVASTATIN 20 MG TABLET 80 MG PO (08:14)
[2020-09-08] MEDS: INSULIN ASPART 100 UNIT/ML INSULN PEN SUBCUT ×2 (08:15→12:26)
[2020-09-08] MEDS: SODIUM CHLORIDE 0.9% FLUSH 10 ML IV ×2 (08:16→20:35)
[2020-09-08] MEDS: LOSARTAN 50 MG TABLET 25 MG PO (08:21)
[2020-09-08] MEDS: BUSPIRONE 15 MG TABLET 30 MG PO ×2 (08:22→20:33)
[2020-09-08] MEDS: carvediloL 12.5 MG TABLET 25 MG PO ×2 (08:22→20:34)
[2020-09-08 08:29] LABS: Add Manual Diff / Slide Review NO; Basophils Absolute Auto 0 /uL (0-100); Basophils Percent Auto 0.5 % (0-2); Eosinophils Absolute Auto 400 /uL (0-450); Eosinophils Percent Auto 5.6 % (2-4); Hematocrit 42.7 % (41-53); Hemoglobin 14.3 g/dL (13.5-17.5); Lymphocytes Absolute Auto 1600 /uL (1100-4500); Lymphocytes Percent Auto 22.5 % (25-40); Mean Corpuscular HGB Conc 33.6 % (30-36); Mean Corpuscular Hemoglobin 27.2 PG (26-34); Mean Corpuscular Volume 81.1 fL (80-100); Monocytes Absolute Auto 700 /uL (0-900); Monocytes Percent Auto 10.1 % (3-14); Neutrophils Absolute Auto 4300 /uL (1500-7000); Neutrophils Percent Auto 61.3 % (50-75); Platelet Count 201 X10^3/uL (150-400); Red Blood Cell Count 5.26 X10^6/uL (4.5-5.9); Red Cell Distribution Width 14.2 % (11.6-14.8)
[2020-09-08 08:35] LABS: BUN Creatinine Ratio 25.5 (6-22); Blood Urea Nitrogen 24 mg/dL (9-20); Calcium 8.5 mg/dL (8.4-10.2); Carbon Dioxide 31 mmol/L (22-32); Chloride 104 mmol/L (98-107); Estimated Glomerular Filt Rate > 60.0 mL/min (>60); Glucose 145 mg/dL (80-110); HEMOLYSIS < 15 (0-50); Potassium 3.2 mmol/L (3.4-5.1); Sodium 140 mmol/L (137-145)
[2020-09-08] MEDS: TRAMADOL 50 MG TABLET PO ×2 (09:05→20:34)
--- NOTE | 2020-09-08 12:16 | P.PN_ITS ---
Subjective Subjective Date Patient Seen: 09/08/20 Time Patient Seen: 12:16 Interval history: Mr. Raymond Zazueta is a 70-year-old male with a past medical history significant for coronary artery disease, status post pacemaker implantation, hypertension, hyperlipidemia, type 2 diabetes and GERD who was admitted for acute respiratory failure secondary to volume overload and congestive heart failure. He is seen for follow up today. He is now off of supplemental oxygen, but is still quite dyspneic on exertion. He denies any chest pain, palpitations, nausea, vomiting, lower extremity swelling. Exam Vital Signs (past 8 hours): - 09/08/20 08:00 09/08/20 08:31 09/08/20 10:14 Temperature 98.1 F Pulse Rate 75 67 Respiratory Rate 20 Blood Pressure 134/65 Pulse Oximetry 93 95 88 L 09/08/20 10:15 Temperature Pulse Rate Respiratory Rate Blood Pressure Pulse Oximetry 95 Fraction of Inspired Oxygen 30 Oxygen Delivery Method Room Air Oxygen Flow Rate 2 Narrative Exam Narrative: GENERAL APPEARANCE: well developed, obese male with a BMI of 32.1, sitting upright in bed now on RA. HEENT: Normocephalic, PERRLA, conjunctiva clear, EOMs intact without nystagmus, no rhinorrhea, mucous membranes are dry and pink with dried oral secretions. NECK/THYROID: neck supple, no visible JVD, no carotid bruit, no thyromegaly, trachea midline. LYMPH NODES: no cervical or supraclavicular lymphadenopathy. SKIN: [place], warm and dry, no visible lesions, rashes. HEART: RRR, S1-S2, no murmur appreciated, brisk capillary refill, trace peripheral edema LUNGS: Mild bibasilar rales without wheezing, no respiratory distress CHEST: symmetrical movement, no retractions ABDOMEN: Soft, protuberant, dull to percussion, no abdominal tenderness or organomegaly, active bowel tones, BACK: Normal curvature, nontender to palpation. EXTREMITIES: moves all extremities, strength is 5/5 and symmetrical, surgical scarring with tissue loss posterior medial right ankle, well-healed surgical scar right thigh NEUROLOGIC: AAO x 3, no focal neurologic deficits, cranial nerves II-XII grossly intact, sensation intact to light touch, hearing grossly normal to speech. PSYCH: Cooperative, stable behavior Objective Labs Result Diagrams: 09/08/20 08:15 09/08/20 08:15 Labs: Laboratory Results - last 24 hr 09/07/20 09/07/20 09/08/20 12:05 12:05 08:15 WBC 8.3 7.0 RBC 5.48 5.26 Hgb 14.6 14.3 Hct 44.8 42.7 MCV 81.8 81.1 MCH 26.7 27.2 MCHC 32.6 33.6 RDW 14.9 H 14.2 Plt Count 218 201 Neut % (Auto) 67.1 61.3 Lymph % (Auto) 20.6 L 22.5 L [place] % (Auto) 10.3 10.1 Eos % (Auto) 1.7 L 5.6 H Baso % (Auto) 0.3 0.5 Neut # (Auto) 5500 4300 Lymph # (Auto) 1700 1600 [place] # (Auto) 900 700 Eos # (Auto) 100 400 Baso # (Auto) 0 0 Sodium 141 Potassium 3.7 Chloride 106 Carbon Dioxide 29 BUN 19 Creatinine 1.00 Estimated GFR > 60.0 BUN/Creatinine Ratio 19.0 Glucose 123 H Calcium 8.6 Magnesium 09/08/20 08:15 WBC RBC Hgb Hct MCV MCH MCHC RDW Plt Count Neut % (Auto) Lymph % (Auto) [place] % (Auto) Eos % (Auto) Baso % (Auto) Neut # (Auto) Lymph # (Auto) [place] # (Auto) Eos # (Auto) Baso # (Auto) Sodium 140 Potassium 3.2 L Chloride 104 Carbon Dioxide 31 BUN 24 H Creatinine 0.94 Estimated GFR > 60.0 BUN/Creatinine Ratio 25.5 H Glucose 145 H Calcium 8.5 Magnesium 2.0 [facility] Medical History Coronary artery disease Diabetes GERD (gastroesophageal reflux disease) Hyperlipidemia Hypertension Systolic heart failure Surgical History History of colonoscopy History of local excision of skin lesion History of permanent cardiac pacemaker placement History of skin graft Social History household members: children Smoking Status: Never smoker alcohol intake: never substance use type: does not use Assessment & Plan Assessment & Plan narrative: Patient is a 70-year-old male with history of CAD, pacemaker, type 2 diabetes, hypertension, GERD admitted to the hospital with acute on chronic heart failure consistent with flash pulmonary edema. 1. Acute respiratory failure with hypoxia, present on admission, active. -on presentation to the ER the patient w/ respiratory rate of 45 an oxygen saturation of 90% on room air. Started on BiPAP in the ED and continued on to admission. Patient was diuresed with IV lasix with continuous improvement in oxygenation. Now on room air at rest but still with dyspnea on exertion and chest congestion. -initial ABGs obtained on BiPAP with 40% FiO2: PH 7.39, pCO2 of 39.4, PO2 82, HC03 24 and base excess -1. PF ratio 205. -chest x-ray identifies Moderately enlarged heart with extensive with airspace and interstitial infiltrates in both lungs with particular consolidation in the right lower lobe. No appearance of pneumonia,-the patient is afebrile, white co unt is 10.8 with slight elevation neutrophils at 7600 a likely reactive procalcitonin is less than 0.05. 2. Acute on chronic systolic heart failure, flash pulmonary edema, active. -echo 08/26 shows marked decline in LV function with LVEF 25-30%, moderate to severely dilated LV, new fairly diffuse regional wall motion abnormalities with severely hypokinetic to akinetic portions of LV, decreased RV function versus previous echo 01/2020 LVEF was 50-55% without obvious wall motion abnormalities. Current echo findings may be explained by myocardial stunning after patient received cardioversion x2 in the ED. -chest x-ray reveals moderately enlarged cardiac silhouette. Repeat limited echo with similar EF. -patient received Lasix in the emergency department, started on nitroglycerin drip of 5 mcg with improvement in symptoms. -continue lasix 40 mg IV twice daily. Transition to oral tomorrow likely. 3. Hypertension, chronic, stable. -medications adjusted slightly, discontinued amlodipine. Restarted losartan at lower doses given low - normal pressures at 25 mg. Continue coreg and lasix as noted above. 4. Coronary artery disease, chronic, stable -patient with a history of heart disease, documented inferior inferior apical wall deficits on nuclear med stress test June 2015. -prior documentation of Q-waves in the inferior leads with a right bundle branch block now presenting with sinus tachycardia with atrial sensing and ventricular pacing. -cardiac panel finds total CK of 36 and troponin of 0.013. -continue patient's routine of aspirin 81 mg and atorvastatin 80 mg daily 5. Diabetes type 2 with acute hyperglycemia, chronic, stable. -serum glucose on admission is 177 -hemoglobin A1c 7.4 on 09/27/2019 demonstrates adequate long-term control. -Patient takes glipizide 5 mg twice daily at home, will hold glipizide. -ordered fingerstick blood sugars a.c. and hs with low-dose correctional insulin. -consistent carbohydrate heart healthy diet 6. History of pacemaker -12 lead EKG reveals sinus rhythm at 111 beats per minute with atrial sensing with ventricular pacing with a [place] interval of 172 milliseconds. -patient with episodes of ? VT on telemetry, will interrogate device today. VTE prophylaxis: Enoxaparin 40 mg daily Diet: Consistent carbohydrate, heart healthy 2 g low-sodium Code status: Full Code, the patient designates his daughter to be his surrogate decision maker. Dispo: anticipate discharge home as soon as tomorrow should his symptoms continue to improve.
[2020-09-08] MEDS: POTASSIUM CHLORIDE 20 MEQ TAB 40 MEQ PO (12:26)
--- NOTE | 2020-09-08 13:41 | DIET.PN ---
Dietary Progress Note Assessment: 70y M c pmhx significant for CAD, status post pacemaker implantation, htn, hld, DM2 and GERD who presents to the ER with acute onset SOB referred to nutrition for flash pulmonary edema, CHF, DM. Pt lives c his son and daughter (or granddaughter?) reporting the daughter does all cooking in the home. Pt missing several teeth c preference for softer foods. Usual Daily PO intake since d/c from hospital in August: no breakfast (secondary to full sensation from fluid accumulation) lunch and dinner: mac n cheese, top ramen, canned or homemade soup, sandwiches c tuna/egg salad/deli meat HT: 175.2cm WT: 97.5kg BMI: 31.7 Labs: NTproBNP 2540 H A1c (09/2019) 7.6 Nutrition Diagnosis: Excessive intake of mineral (sodium) r/t undesirable food choices aeb pt relies on family member to provide meals which are high in dietary sodium, pt has CHF with LVEF dropping from 50-55% to 25-30% in 7mo, pt admitted c flash pulmonary edema c acute respiratory failure c hypoxia after being discharged from hospital 08/29/20. Interventions: 1. Discussed importance of sodium restricted diet for CHF. Pt agreeable to RD printing Low Sodium/Heart Healthy diet instructions to take home. Pt reports his daughter read all paperwork last time he was d/c'd and feels it will help the family make better food choices. 2. Recc Easy Chew Heart Healthy diet secondary to missing teeth for easier mastication. Diet Order: HH EER: 1500mg sodium per day Monitoring/Evaluations: RD to deliver HH MNT instructions
--- NOTE | 2020-09-08 20:03 | PC.NURSE ---
Evening shift note: Pt A/O x3, independent in room, resting in bed watching TV. Currently on room air, states he is breathing back to normal and feels great. Report given stated that pt had a 1 1/2 min. run of VTach this morning, Dr Mederos aware, no new orders. Pt asymptomatic during and after episode. Pt up to chair for dinner, FSBG 132 at 1630, pt declined 1 unit of insulin at this time. Pt states that if all goes well tonight, he might get to go home tomorrow. VSS, SpO2 97% on room air, no further needs at this time, will continue to monitor.
[2020-09-08] MEDS: LORazepam 0.5 MG TABLET PO (20:34)
[2020-09-09 00:31] VITALS: BP 148/84; PULSE 79; RESP 22; TEMP 36.1; O2SAT 98
[2020-09-09] MEDS: MORPHINE 2 MG/ML INJ IV (01:42)
[2020-09-09 05:00] VITALS: BP 107/59; PULSE 66; RESP 18; TEMP 36.3; O2SAT 92
[2020-09-09 05:41] LABS: BUN Creatinine Ratio 25.4 (6-22); Blood Urea Nitrogen 30 mg/dL (9-20); Calcium 9.3 mg/dL (8.4-10.2); Carbon Dioxide 34 mmol/L (22-32); Chloride 105 mmol/L (98-107); Estimated Glomerular Filt Rate > 60.0 mL/min (>60); Glucose 137 mg/dL (80-110); HEMOLYSIS < 15 (0-50); Magnesium 2.1 mg/dL (1.6-2.3); Potassium 4.3 mmol/L (3.4-5.1); Sodium 141 mmol/L (137-145)
--- NOTE | 2020-09-09 06:09 | CM.MNRNOTE ---
11 beat run of Vtach - asymptomatic. BP stable 127/67. LOYD Worthy aware. No new orders received. Plan to check am labs.
[2020-09-09 08:17] VITALS: BP 152/73; PULSE 79; RESP 16; TEMP 36.3; O2SAT 97
[2020-09-09] MEDS: ASPIRIN 81 MG CHEW TAB PO (08:24)
[2020-09-09] MEDS: BUSPIRONE 15 MG TABLET 30 MG PO (08:24)
[2020-09-09] MEDS: LOSARTAN 50 MG TABLET 25 MG PO (08:25)
[2020-09-09] MEDS: FUROSEMIDE 40 MG TABLET PO (08:25)
[2020-09-09] MEDS: SERTRALINE 50 MG TABLET 200 MG PO (08:25)
[2020-09-09] MEDS: ATORVASTATIN 20 MG TABLET 80 MG PO (08:25)
[2020-09-09] MEDS: ENOXAPARIN 40 MG/0.4 ML SYRINGE SUBCUT (08:25)
[2020-09-09] MEDS: PANTOPRAZOLE 40 MG VIAL IV (08:26)
[2020-09-09] MEDS: SODIUM CHLORIDE 0.9% FLUSH 10 ML IV (08:26)
--- NOTE | 2020-09-09 08:29 | PM.DS.1 ---
History of Present Illness History of Present Illness Date Patient Seen: 09/09/20 Time Patient Seen: 08:29 Chief complaint: difficulty breathing, has heart failure Narrative: As per LOYD Smith: Mr. Raymond Zazueta is a 70-year-old male with a past medical history significant for coronary artery disease, status post pacemaker implantation, hypertension, hyperlipidemia, type 2 diabetes and GERD who presents to the ER with acute onset shortness of breath. The patient reports that he had increasing shortness of breath during the day but denies fevers or chills, cough, nausea vomiting or diaphoresis. He went to bed and woke acutely dyspneic. He reports no complaints of chest pain palpitations and he has an implanted pacemaker. The patient states this felt the same in abrupt onset as his previous admission from 08/26/20 to 08/29/20 when the patient was admitted for acute on chronic heart failure and pneumonia. The patient stated he recovered well and was in his usual state health following discharge until yesterday. Patient denies complaints of fevers or chills headaches or dizziness, nasal congestion or sore throat. Denies complaints of chest pain or palpitations and shortness of breath with exertion over 1 week and a dry nonproductive cough. He denies complaints of epigastric or abdominal pain, nausea vomiting, diarrhea or constipation. He has had no difficulty urinating and denies extremity swelling. Upon arrival to the ER patient is afebrile with temperature 97.5?, heart rate of 111, blood pressure 155/86, respiratory rate of 45 saturating 90% on room air. Chest x-ray is obtained finding moderately enlarged cardiac silhouette with extensive airspace and interstitial infiltrates throughout lungs particular consolidation in the right lower lobe. Twelve lead EKG demonstrates sinus rhythm at a rate of 111 with ventricular pacing. On laboratory analysis patient has white count of 10.8 a hemoglobin of 15.4, hematocrit of 47.0 and platelets of 253. His PT is 11.7, INR 1.0 and PTT of 45. His electrolytes are within normal limits and has a BUN of 19 and creatinine 1.05. His magnesium is 2.0 and nonfasting glucose is 177. His liver functions are all within normal limits. He has a lactic acid of 1.2 and a procalcitonin that is less than 0.05. Total CK is 36 and troponin is 0.013. ProBNP is elevated to 1540. In the ER the patient is placed on BiPAP at 40% an ABG is obtained a pH of 7.39, pCO2 of 39.4, PO2 of 82, HC03 24 and a base excess of -1. Patient is also started on a nitro drip at 5 mics per minute and receives Lasix 40 mg IV. Patient is admitted to the hospital service for acute on chronic systolic heart failure. Discharge Providers Provider Date of admission: 09/07/20 04:29 Discharge Date: 09/09/20 Primary care physician: Kathy Hoffmann MD Consults: 09/07/20 02:55 Consult to Respiratory Therapy Evaluate & Treat Comment: Physician Instructions: Evaluate and treat 09/07/20 05:01 Consult to Dietitian, Adult Routine Comment: Reason For Exam: Flash pulmonary edema congestive heart failure, DM Discharge provider: Souleymane Mederos DO Summary Hospital Course Discharge Diagnosis: Please see hospital course by problem list noted below. Hospital Course: Patient is a 70-year-old male with history of CAD, pacemaker, type 2 diabetes, hypertension, GERD admitted to the hospital with acute respiratory failure acute with hypoxia secondary to acute on chronic heart failure. He improved with diuresis and his symptoms improved quite quickly. He was discharged home with plan to follow up with his primary care provider and photovoltaic solar cell designer. 1. Acute respiratory failure with hypoxia, present on admission, resolved -on presentation to the ER the patient w/ respiratory rate of 45 an oxygen saturation of 90% on room air. Started on BiPAP in the ED and continued on to admission. Patient was diuresed with IV lasix with continuous improvement in oxygenation. Now on room air and upon discharged much improved symptomatically with minimal dyspnea on exertion. -initial ABGs obtained on BiPAP with 40% FiO2: PH 7.39, pCO2 of 39.4, PO2 82, HC03 24 and base excess -1. PF ratio 205. -chest x-ray identified Moderately enlarged heart with extensive with airspace and interstitial infiltrates in both lungs with particular consolidation in the right lower lobe. No appearance of pneumonia,-the patient is afebrile, white count is 10.8 with slight elevation neutrophils at 7600 a likely reactive procalcitonin is less than 0.05. -limited TTE as noted below. 2. Acute on chronic systolic heart failure, flash pulmonary edema, active. -echo 08/26 shows marked decline in LV function with LVEF 25-30%, moderate to severely dilated LV, new fairly diffuse regional wall motion abnormalities with severely hypokinetic to akinetic portions of LV, decreased RV function versus previous echo 01/2020 LVEF was 50-55% without obvious wall motion abnormalities. Current echo findings thought initially to be explained by myocardial stunning after patient received cardioversion x2 in the ED. -chest x-ray reveals moderately enlarged cardiac silhouette. Repeat limited echo with similar EF. -patient received Lasix in the emergency department, started on nitroglycerin drip of 5 mcg with improvement in symptoms. -continued lasix 40 mg IV twice daily, and will discharge on oral lasix 40 mg PO BID. Recommended he follow up with his PMD as this will not likely be his final outpatient dosing. Recommend follow up with outpatient cardiology given persistent EF of 25-30%. He is on beta wilfred and Arb therapy. 3. Hypertension, chronic, stable. -medications adjusted slightly, discontinued amlodipine. Restarted losartan at lower doses given low - normal pressures initially but can increase upon discharge to 50 mg oral daily. Continue coreg and lasix as noted above. 4. Coronary artery disease, chronic, stable -patient with a history of heart disease, documented inferior inferior apical wall deficits on nuclear med stress test June 2015. -prior documentation of Q-waves in the inferior leads with a right bundle branch block now presenting with sinus tachycardia with atrial sensing and ventricular pacing. -cardiac panel finds total CK of 36 and troponin of 0.013. -continue patient's routine of aspirin 81 mg and atorvastatin 80 mg daily 5. Diabetes type 2 with acute hyperglycemia, chronic, stable. -serum glucose on admission is 177 -hemoglobin A1c 7.4 on 09/27/2019 demonstrates adequate long-term control. -Patient takes glipizide 5 mg twice daily at home, held glipizide as an inpatient.. -ordered fingerstick blood sugars a.c. and hs with low-dose correctional insulin during his admission 6. History of pacemaker -12 lead EKG reveals sinus rhythm at 111 beats per minute with atrial sensing with ventricular pacing with a [place] interval of 172 milliseconds. -patient with episodes of ? VT on telemetry, device interrogation revealed adequate battery levels and a functioning device. Recommend that he follow-up with his outpatient photovoltaic solar cell designer. Time Spent with Patient Time spent: Greater than 30 minutes Exam Vital Signs (past 8 hours): - 09/09/20 00:31 09/09/20 05:00 09/09/20 08:17 Temperature 96.9 F L 97.3 F L 97.3 F L Pulse Rate 79 66 79 Respiratory Rate 22 18 16 Blood Pressure 148/84 H 107/59 L 152/73 H Pulse Oximetry 98 92 97 Fraction of Inspired Oxygen 30 Oxygen Delivery Method Room Air Oxygen Flow Rate 0 Narrative Exam Narrative: GENERAL APPEARANCE: well developed, obese male with a BMI of 32.1, sitting upright in bed now on RA. HEENT: Normocephalic, PERRLA, conjunctiva clear, EOMs intact without nystagmus, no rhinorrhea, mucous membranes are dry and pink with dried oral secretions. NECK/THYROID: neck supple, no visible JVD, no carotid bruit, no thyromegaly, trachea midline. LYMPH NODES: no cervical or supraclavicular lymphadenopathy. SKIN: [place], warm and dry, no visible lesions, rashes. HEART: RRR, S1-S2, no murmur appreciated, brisk capillary refill, trace peripheral edema LUNGS: Mild bibasilar rales without wheezing, no respiratory distress CHEST: symmetrical movement, no retractions ABDOMEN: Soft, protuberant, dull to percussion, no abdominal tenderness or organomegaly, active bowel tones, BACK: Normal curvature, nontender to palpation. EXTREMITIES: moves all extremities, strength is 5/5 and symmetrical, surgical scarring with tissue loss posterior medial right ankle, well-healed surgical scar right thigh NEUROLOGIC: AAO x 3, no focal neurologic deficits, cranial nerves II-XII grossly intact, sensation intact to light touch, hearing grossly normal to speech. PSYCH: Cooperative, stable behavior Objective Labs Result Diagrams: 09/08/20 08:15 09/09/20 05:10 Labs: Laboratory Results - last 24 hr 09/08/20 09/08/20 09/09/20 08:15 08:15 05:10 WBC 7.0 RBC 5.26 Hgb 14.3 Hct 42.7 MCV 81.1 MCH 27.2 MCHC 33.6 RDW 14.2 Plt Count 201 Neut % (Auto) 61.3 Lymph % (Auto) 22.5 L [place] % (Auto) 10.1 Eos % (Auto) 5.6 H Baso % (Auto) 0.5 Neut # (Auto) 4300 Lymph # (Auto) 1600 [place] # (Auto) 700 Eos # (Auto) 400 Baso # (Auto) 0 Sodium 140 141 Potassium 3.2 L 4.3 Chloride 104 105 Carbon Dioxide 31 34 H BUN 24 H 30 H Creatinine 0.94 1.18 Estimated GFR > 60.0 > 60.0 BUN/Creatinine Ratio 25.5 H 25.4 H Glucose 145 H 137 H Calcium 8.5 9.3 Magnesium 2.0 2.1 PFSH Medical History Coronary artery disease Diabetes GERD (gastroesophageal reflux disease) Hyperlipidemia Hypertension Systolic heart failure Surgical History History of colonoscopy History of local excision of skin lesion History of permanent cardiac pacemaker placement History of skin graft Social History household members: children Smoking Status: Never smoker alcohol intake: never substance use type: does not use Discharge Plan Discharge Plan Patient Disposition: Home Provider Discharge Comment: You were admitted to the hospital with shortness of breath. This was likely due to volume overload from heart failure. I recommend you see a photovoltaic solar cell designer as an outpatient for further evluation of your reduced ejection fraction. Please continue lasix 40 mg BID, this dose will probably need to be adjusted down, and if you start to feel dizzy or dehydrated you can probably adjust down to just once a day. Please try and check in with your primary care provider next week. Discharge orders & Medications Prescriptions: New losartan 50 mg Tablet 50 mg PO DAILY 30 Days Qty: 30 RF: 0 furosemide 40 mg Tablet 40 mg PO BID 30 Days Qty: 60 RF: 0 Continued multivitamin Tablet 1 tab PO DAILY Qty: 0 RF: 0 albuterol sulfate [Ventolin HFA] 90 MCG/PUFF HFA aerosol inhaler 2 puff INH PRN PRN (Reason: Shortness Of Breath) Qty: 0 RF: 0 glipizide 5 MG tablet 5 mg PO BID Qty: 0 RF: 0 atorvastatin 80 mg Tablet 80 mg PO DAILY RF: 0 carvedilol 25 mg Tablet 25 mg PO BID RF: 0 tramadol 50 mg Tablet 50 mg PO Q6H PRN (Reason: pain) RF: 0 buspirone 30 mg Tablet 30 mg PO BID RF: 0 lidocaine 5 % Adhesive Patch,Medicated 3 patch TOPICAL DAILY RF: 0 aspirin 81 mg Tablet,Chewable 81 mg PO DAILY RF: 0 testosterone cypionate 200 mg/mL Oil 200 mg IM Q4W RF: 0 oxybutynin chloride 5 mg Tablet 5 mg PO TID RF: 0 fluticasone propionate 50 mcg/actuation [place],Suspension 1 spray INTRANASAL DAILY RF: 0 omeprazole 40 MG capsule,delayed release(DR/EC) 40 mg PO DAILY RF: 0 sertraline 100 mg tablet 200 mg PO DAILY RF: 0 Discontinued losartan 100 MG tablet 100 mg PO DAILY Qty: 0 RF: 0 amlodipine 10 mg Tablet 10 mg PO DAILY RF: 0 furosemide 20 mg tablet 20 mg PO DAILY 30 Days Qty: 30 RF: 0 Follow up/Referrals: Kathy Hoffmnan MD [Primary Care Provider] - (PLEASE CALL DR. HOFFMANN TO SCHEDULE AN APPOINTMENT TO BE SEEN EARLY NEXT WEEK.) Visit Report/Discharge Packet Instructions: Congestive Heart Failure (Alternative Therapy), Heart Failure, DI for Heart Failure, How to Prevent Falls, Physical Activity for People with Heart Failure Discharge Data Primary Care Provider: Kathy Hoffmann
[2020-09-09] MEDS: carvediloL 12.5 MG TABLET 25 MG PO (08:30)
[2020-09-09] MEDS: TRAMADOL 50 MG TABLET PO (08:44)
[2020-09-09] MEDS: LOSARTAN 25 MG TABLET PO (08:45)
--- NOTE | 2020-09-09 08:51 | CM.DPC ---
DCP: continued. Case received, dc order noted. EMR reviewed. Met now with pt who if found sitting up in bed, eating breakfast, smiling. He is off oxygen and says he is pleased that he is ok'd to go home today. His step-daughter Mary will be picking him up later this morning. P: home today as above with plan for PCP followup and consideration of cardiology referral.
--- NOTE | 2020-09-09 10:32 | PC.NURSE ---
DISCHARGE; PATIENT CONFIRMS UNDERSTANDING OF ALL DC HOME PAPERWORK INCLUDING S/SX'S TO MONITOR FOR AT HOME INDICATING WORSENING CHF AND WHEN TO CALL DOCTOR OR COME TO ER. TEACHING PROVIDED ON LOW SALT DIET, AND TRACKING DAILY WTS. INSTRUCTED PATIENT TO BRING HIS DC HOME PAPERWORK WITH HIM TO HIS FOLLOW UP APPT W/ HIS PCP. HE INDICATES HE WILL CALL TO SCHEDULE THE APPOINTMENT. DENIES SOB AT REST OR W/ ACTIVITY AT THIS TIME. REVIEWED MED LIST WITH PATIENT INCLUDING REASON FOR EACH MEDICATION AND LAST DOSES, AND DOSAGE CHANGES MADE BY MD. 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 STEP DTR ARRIVED TO TAKE PATIENT HOME. SALAD MAKER ESCORTED PATIENT TO VEHICLE BY WITH ALL BELONGINGS AND PAPERWORK.
== END 2020-09-09 10:15 | disposition home or self-care (01) | DRG 189 ==
LOC: ED 04:29 → AC 04:30 → ICU 04:52
PROVIDERS: Internal Medicine; Admitting Provider Nurse Practitioner Adult Health; Emergency Provider Emergency Medicine; Family Provider Family Medicine; PCP Family Medicine; Referring Provider Emergency Medicine; Visit Provider Nurse Practitioner Adult Health
DX: J96.01 Acute respiratory failure with hypoxia (principal); I50.23 Acute on chronic systolic (congestive) heart failure; I11.0 Hypertensive heart disease with heart failure; I25.10 Atherosclerotic heart disease of native coronary artery without angina pectoris; E78.5 Hyperlipidemia, unspecified; K21.9 Gastro-esophageal reflux disease without esophagitis; E11.65 Type 2 diabetes mellitus with hyperglycemia; Z95.0 Presence of cardiac pacemaker; Z20.822 Contact with and (suspected) exposure to COVID-19; I45.10 Unspecified right bundle-branch block
CPT/HCPCS: 36415; 36600; 71045; 80048; 80053; 82550; 82805; 82962; 83605; 83735; 83880; 84145; 84484; 85025; 85610; 85730; 87635; 87797; 93005; 93307; 94660; 96374; 99284; 99285; 99291; C9803; A9270; C9113; J1650; J1940; J2270

== ENCOUNTER → 2020-11-17 12:58 | Outpatient (ROUT) | payer OTHER, SELFPAY ==
[2020-09-07 05:38] VITALS: BMI 32.1
[2020-09-07 08:15] VITALS: PULSE 73; RESP 23; O2SAT 96
[2020-11-17 13:05] LABS: Add Manual Diff / Slide Review NO; Basophils Absolute Auto 0 /uL (0-100); Basophils Percent Auto 0.4 % (0-2); Eosinophils Absolute Auto 300 /uL (0-450); Eosinophils Percent Auto 3.8 % (2-4); Hemoglobin 15.1 g/dL (13.5-17.5); Lymphocytes Absolute Auto 1900 /uL (1100-4500); Lymphocytes Percent Auto 28.7 % (25-40); Mean Corpuscular HGB Conc 32.9 % (30-36); Mean Corpuscular Hemoglobin 26.8 PG (26-34); Mean Corpuscular Volume 81.4 fL (80-100); Monocytes Absolute Auto 800 /uL (0-900); Monocytes Percent Auto 12.2 % (3-14); Neutrophils Absolute Auto 3700 /uL (1500-7000); Neutrophils Percent Auto 54.9 % (50-75); Platelet Count 159 X10^3/uL (150-400); Red Blood Cell Count 5.65 X10^6/uL (4.5-5.9); Red Cell Distribution Width 16.1 % (11.6-14.8); White Blood Cell Count 6.8 X10^3/uL (4.5-11.0)
[2020-11-17 13:13] LABS: HEMOLYSIS < 15 (0-50); Iron 87 ug/dL (49-181)
[2020-11-17 13:14] LABS: Alanine Aminotransferase 35 IU/L (<50); Albumin 4.5 g/dL (3.5-5.0); Albumin Globulin Ratio 1.5 (1.0-2.8); Alkaline Phosphatase 90 U/L (38-126); Aspartate Aminotransferase 26 IU/L (17-59); BUN Creatinine Ratio 19.5 (6-22); Bilirubin Total 0.6 mg/dL (0.2-1.3); Blood Urea Nitrogen 17 mg/dL (9-20); Calcium 9.4 mg/dL (8.4-10.2); Carbon Dioxide 28 mmol/L (22-32); Chloride 103 mmol/L (98-107); Estimated Glomerular Filt Rate > 60.0 mL/min (>60); Globulin 3.1 g/dL (1.7-4.1); Glucose 140 mg/dL (80-110); HEMOLYSIS < 15 (0-50); Potassium 3.8 mmol/L (3.4-5.1); Sodium 140 mmol/L (137-145); Total Protein 7.6 g/dL (6.3-8.2)
[2020-11-17 13:23] LABS: Percent Iron Saturation 23 % (20-50); Total Iron Binding Capacity 382 ug/dL (261-462); Transferrin 309 mg/dL (206-381)
[2020-11-17 13:43] LABS: TSH w/ Reflex to FT4 3.01 uIU/mL (0.47-4.68)
[2020-11-17 13:48] LABS: Ferritin 38 ng/mL (18-464)
== END ==
PROVIDERS: Family Provider Family Medicine; PCP Family Medicine; Visit Provider Family Medicine
DX: R71.8 Other abnormality of red blood cells (principal); E11.9 Type 2 diabetes mellitus without complications
CPT/HCPCS: 80053; 82728; 83540; 83550; 84443; 85025

== ENCOUNTER 2020-11-17 16:01 | Emergency (ER) | payer OTHER, SELFPAY ==
[2020-09-07 05:38] VITALS: BMI 32.1
[2020-09-07 08:15] VITALS: PULSE 73; RESP 23; O2SAT 96
[2020-11-17 16:03] VITALS: BP 127/76; PULSE 111; RESP 19; TEMP 35.6; O2SAT 99; BMI 32.0
--- NOTE | 2020-11-17 16:22 | ED_ITS ---
HPI - General Adult General Chief complaint: Recheck/Abnormal Lab/Rx Stated complaint: abnormal EKG at [facility] Time Seen by Provider: 11/17/20 16:08 Source: patient Mode of arrival: Ambulatory Limitations: no limitations History of Present Illness HPI narrative: Patient is a 70-year-old male who was sent over from his primary doctor's clinic for evaluation of an abnormal EKG. He was at his doctor's offic e today as a follow-up for admissions that he has had a couple months ago for congestive heart failure. This was a scheduled visit. He states he is not having any new symptoms. He is having no chest pain no shortness of breath. He does have a pacemaker in place. He states that there was an EKG performed. He is unsure exactly what the abnormality was but he was told that it ?looked funny? he also stated that the provider contacted his public health technician who also agreed that it ?looked funny? and was told to come to the emergency department for further evaluation. Related Data Home Medications Medication Instructions Recorded Confirmed multivitamin 1 tab PO DAILY #0 11/21/11 09/07/20 albuterol sulfate [Ventolin HFA] 2 puff INH PRN PRN #0 08/23/17 09/07/20 glipizide 5 mg PO BID #0 08/23/17 09/07/20 aspirin 81 mg PO DAILY 12/17/18 09/07/20 atorvastatin 80 mg PO DAILY 12/17/18 09/07/20 buspirone 30 mg PO BID 12/17/18 09/07/20 carvedilol 25 mg PO BID 12/17/18 09/07/20 fluticasone propionate 1 spray INTRANASAL DAILY 12/17/18 09/07/20 lidocaine 3 patch TOPICAL DAILY 12/17/18 09/07/20 omeprazole 40 mg PO DAILY 12/17/18 09/07/20 oxybutynin chloride 5 mg PO TID 12/17/18 09/07/20 testosterone cypionate 200 mg IM Q4W 12/17/18 09/07/20 tramadol 50 mg PO Q6H PRN 12/17/18 09/07/20 sertraline 200 mg PO DAILY 09/07/20 09/07/20 Allergies Allergy/AdvReac Type Severity Reaction Status Date / Time Sulfa (Sulfonamide Allergy Severe RASH Verified 08/26/20 17:45 Antibiotics) [SULFA (SULFONAMIDE ANTIBIOTICS)] iodine [IODINE] Allergy Mild RASH Verified 08/26/20 17:45 Review of Systems Constitutional Constitutional: Denies fever(s) ENT Ears, Nose, Mouth, and Throat: Denies vertigo and Denies dizziness Cardiovascular Cardiovascular: Denies chest pain, Denies rapid heart rate and Denies dyspnea Respiratory Respiratory: Denies cough and Denies dyspnea Gastrointestinal Gastrointestinal: Denies abdominal pain, Denies nausea and Denies vomiting Musculoskeletal Musculoskeletal: Denies arthralgias and Denies myalgias Integumentary/Breasts Skin/Breast: Denies rash Neurologic Neurologic: Denies confusion, Denies vertigo and Denies dizziness Psychiatric Psychiatric: Denies confusion Hematologic/Lymphatic Hematologic/Lymphatic: Denies easy bleeding and Denies easy bruising Allergic/Immunologic Allergic/Immunologic: Denies urticaria Patient History Medical History Coronary artery disease Diabetes GERD (gastroesophageal reflux disease) Hyperlipidemia Hypertension Systolic heart failure Surgical History History of colonoscopy History of local excision of skin lesion History of permanent cardiac pacemaker placement History of skin graft Social History household members: children Smoking Status: Never smoker alcohol intake: never substance use type: does not use Smoking Status: Never smoker Substance Use Type: does not use Exam Initial Vital Signs Initial Vital Signs: Vital Signs Temperature 96.0 F L 11/17/20 16:03 Pulse Rate 111 H 11/17/20 16:03 Respiratory Rate 19 11/17/20 16:03 Blood Pressure 127/76 11/17/20 16:03 Pulse Oximetry 99 11/17/20 16:03 Const General: cooperative, comfortable and well developed Limitations: mental status not altered HENMT Head: normal to inspection and normocephalic Resp Effort & Inspection: normal respiratory effort Auscultation: clear to auscultation bilaterally Cardio Rate: tachycardic Rhythm: regular rhythm Pulses: radial pulses present GI Inspection: non-distended Palpation: soft Skin Lesions: no lesions Rashes: no rashes Neuro General: patient alert and patient awake Cognition: normal cognition Speech: speech normal Extrem General: capillary refill normal Psych Appearance: grossly normal and well kempt Course Orders Ordered: ED Orders 11/17/20 16:09 EKG-12 Lead Stat 11/17/20 16:14 Basic Metabolic Panel Stat Complete Blood Count AUTO DIFF Stat Magnesium Stat Vital Signs Vital signs: Vital Signs - 8 hr 11/17/20 16:03 Temperature 96.0 F L Pulse Rate 111 H Respiratory Rate 19 Blood Pressure 127/76 Pulse Oximetry 99 Medical Decision Making Lab Data Lab results reviewed: Yes I reviewed the patient's lab results. Result diagrams: 11/17/20 16:14 11/17/20 16:14 Labs: Lab Results 11/17/20 11/17/20 Range/Units 16:14 16:14 WBC 7.0 (4.5-11.0) X10^3/uL RBC 5.72 (4.5-5.9) X10^6/uL Hgb 15.2 (13.5-17.5) g/dL Hct 46.2 (41-53) % MCV 80.8 (80-100) fL MCH 26.6 (26-34) PG MCHC 32.9 (30-36) % RDW 15.8 H (11.6-14.8) % Plt Count 164 (150-400) X10^3/uL Neut % (Auto) 70.3 (50-75) % Lymph % (Auto) 18.3 L (25-40) % [place] % (Auto) 7.6 (3-14) % Eos % (Auto) 2.5 (2-4) % Baso % (Auto) 1.3 (0-2) % Neut # (Auto) 4900 (7247-7454) /uL Lymph # (Auto) 1300 (7511-7820) /uL [place] # (Auto) 500 (0-900) /uL Eos # (Auto) 200 (0-450) /uL Baso # (Auto) 100 (0-100) /uL Sodium 140 (137-145) mmol/L Potassium 3.7 (3.4-5.1) mmol/L Chloride 105 (98-107) mmol/L Carbon Dioxide 23 (22-32) mmol/L BUN 18 (9-20) mg/dL Creatinine 0.96 (0.66-1.25) mg/dL Estimated GFR > 60.0 (>60) mL/min BUN/Creatinine Ratio 18.8 (6-22) Glucose 227 H (80-110) mg/dL Calcium 9.4 (8.4-10.2) mg/dL Magnesium 1.6 (1.6-2.3) mg/dL ECG Data Attestation: I personally reviewed and interpreted this ECG as follows: Prior ECG tracings: available for review Interpretation: Ventricularly paced rate at 106 MDM Narrative Medical decision making narrative: Was able to review the EKG that was performed at his primary doctor's office and does appear to be a ventricularly paced rhythm. His EKG here in the emergency department does also correspond with this. He does have a DDD [employer] pacemaker in place. We did interrogate the pacemaker. I received a call from the career representative who stated that the Pacemaker seems to be working appropriately. He is ventricularly paced majority of the time. Does have occasional episodes of underlying atrial fibrillation. His labs here in the ER are unremarkable. I did discuss the case with Dr. Gillette who is his public health technician who stated that no further workup is needed in the emergency department. Provided reassurance the patient. We discussed return precautions and follow-up instructions. He expressed understanding and agreement. Discharge Plan Departure Patient Disposition: Home Clinical Impression: Pacemaker Activity Restrictions/Additional Instructions: Your workup here in the emergency department to include the interrogation of the pacemaker and your EKGs and labs are all very reassuring. I also discussed the case with your public health technician. Continue all of your medications as directed. Keep all of your scheduled medical appointments. Return to the emergency department for any new or worsening symptoms Prescriptions: No Action multivitamin Tablet 1 tab PO DAILY Qty: 0 RF: 0 albuterol sulfate [Ventolin HFA] 90 MCG/PUFF HFA aerosol inhaler 2 puff INH PRN PRN (Reason: Shortness Of Breath) Qty: 0 RF: 0 glipizide 5 MG tablet 5 mg PO BID Qty: 0 RF: 0 atorvastatin 80 mg Tablet 80 mg PO DAILY RF: 0 carvedilol 25 mg Tablet 25 mg PO BID RF: 0 tramadol 50 mg Tablet 50 mg PO Q6H PRN (Reason: pain) RF: 0 buspirone 30 mg Tablet 30 mg PO BID RF: 0 lidocaine 5 % Adhesive Patch,Medicated 3 patch TOPICAL DAILY RF: 0 aspirin 81 mg Tablet,Chewable 81 mg PO DAILY RF: 0 testosterone cypionate 200 mg/mL Oil 200 mg IM Q4W RF: 0 oxybutynin chloride 5 mg Tablet 5 mg PO TID RF: 0 fluticasone propionate 50 mcg/actuation Vancleave,Suspension 1 spray INTRANASAL DAILY RF: 0 omeprazole 40 MG capsule,delayed release(DR/EC) 40 mg PO DAILY RF: 0 sertraline 100 mg tablet 200 mg PO DAILY RF: 0 Referrals: Kathy Hoffmann MD [Primary Care Provider] -
--- NOTE | 2020-11-17 16:27 | PC.NURSE ---
Patient seen by PCP for routine follow up. Told to go to ER for Abnormal EKG. Some blood work done at clinic as well. Patient has no complaints at this time. Denies chest pain, SOB. No new swelling noted. States he is a few days behind on some prescriptions. Having difficulty getting refills at pharmacy they are so backed up with COVID shots
[2020-11-17 16:34] LABS: BUN Creatinine Ratio 18.8 (6-22); Blood Urea Nitrogen 18 mg/dL (9-20); Calcium 9.4 mg/dL (8.4-10.2); Carbon Dioxide 23 mmol/L (22-32); Chloride 105 mmol/L (98-107); Estimated Glomerular Filt Rate > 60.0 mL/min (>60); Glucose 227 mg/dL (80-110); HEMOLYSIS 25 (0-50); Magnesium 1.6 mg/dL (1.6-2.3); Potassium 3.7 mmol/L (3.4-5.1); Sodium 140 mmol/L (137-145)
[2020-11-17 16:39] LABS: Add Manual Diff / Slide Review NO; Basophils Absolute Auto 100 /uL (0-100); Basophils Percent Auto 1.3 % (0-2); Eosinophils Absolute Auto 200 /uL (0-450); Eosinophils Percent Auto 2.5 % (2-4); Hematocrit 46.2 % (41-53); Hemoglobin 15.2 g/dL (13.5-17.5); Lymphocytes Absolute Auto 1300 /uL (1100-4500); Lymphocytes Percent Auto 18.3 % (25-40); Mean Corpuscular HGB Conc 32.9 % (30-36); Mean Corpuscular Hemoglobin 26.6 PG (26-34); Mean Corpuscular Volume 80.8 fL (80-100); Monocytes Absolute Auto 500 /uL (0-900); Monocytes Percent Auto 7.6 % (3-14); Neutrophils Absolute Auto 4900 /uL (1500-7000); Neutrophils Percent Auto 70.3 % (50-75); Platelet Count 164 X10^3/uL (150-400); Red Blood Cell Count 5.72 X10^6/uL (4.5-5.9); Red Cell Distribution Width 15.8 % (11.6-14.8)
--- NOTE | 2020-11-17 16:46 | PC.NURSE ---
[employer] Pacemaker interrogation in progress
--- NOTE | 2020-11-17 17:02 | PC.NURSE ---
[address] machine operator complete, faxed info provided to dr. mercado and rep has called to speak with dr. mercado.
[2020-11-17 17:23] VITALS: BP 132/69; PULSE 97; RESP 27; O2SAT 98
[2020-11-17 17:25] VITALS: BP 132/69; PULSE 92; RESP 19; O2SAT 100
== END 2020-11-17 17:29 | disposition home or self-care (01) ==
PROVIDERS: Emergency Provider Emergency Medicine; Family Provider Family Medicine; PCP Family Medicine
DX: I50.9 Heart failure, unspecified (principal); R00.0 Tachycardia, unspecified; Z95.0 Presence of cardiac pacemaker
CPT/HCPCS: 36415; 80048; 80053; 82728; 83540; 83550; 83735; 84443; 85025; 93005; 93010; 99283; 99284

== ENCOUNTER → 2021-04-03 14:29 | Outpatient (CLI) | payer OTHER, SELFPAY ==
[2020-09-07 05:38] VITALS: BMI 32.1
[2020-09-07 08:15] VITALS: PULSE 73; RESP 23; O2SAT 96
[2021-04-03 15:15] LABS: Hematocrit 40.8 % (41-53); Hemoglobin 13.3 g/dL (13.5-17.5)
[2021-04-03 15:30] LABS: BUN Creatinine Ratio 13.8 (6-22); Blood Urea Nitrogen 15 mg/dL (9-20); Carbon Dioxide 25 mmol/L (22-32); Chloride 110 mmol/L (98-107); Estimated Glomerular Filt Rate > 60.0 mL/min (>60); Glucose 136 mg/dL (80-110); HEMOLYSIS < 15 (0-50); Potassium 3.5 mmol/L (3.4-5.1); Sodium 142 mmol/L (137-145)
[2021-04-03 18:34] LABS: Creatinine Urine Random 234.5 mg/dL; Protein (Total) Urine Random 18 mg/dL (0-12); Protein Creatinine Ratio Urine 0.07 GRAM/24H
[2021-04-04 07:44] LABS: Parathyroid Hormone Int 29 pg/mL (15-65)
== END ==
PROVIDERS: Family Provider Family Medicine; PCP Family Medicine; Referring Provider Student in an Organized Health Care Education/Training Program; Visit Provider Student in an Organized Health Care Education/Training Program
DX: N05.9 Unspecified nephritic syndrome with unspecified morphologic changes (principal); D64.9 Anemia, unspecified; N25.81 Secondary hyperparathyroidism of renal origin; R80.9 Proteinuria, unspecified
CPT/HCPCS: 36415; 80048; 82570; 83970; 84156; 85014; 85018

== ENCOUNTER 2021-04-11 14:08 | Observation (INO) | payer OTHER, SELFPAY ==
[2020-09-07 05:38] VITALS: BMI 32.1
[2020-09-07 08:15] VITALS: PULSE 73; RESP 23; O2SAT 96
[2021-04-11] VITALS (11 sets, daily range): BP systolic 125–150; BP diastolic 76–91; PULSE 94–109; RESP 28–47; O2SAT 86–95; BMI 32.0
--- NOTE | 2021-04-11 14:13 | DI.RAD.S_ITS ---
PROCEDURE: XR CHEST 1V INDICATIONS: Shortness of breath TECHNIQUE: One view of the chest was acquired. COMPARISON: [facility], CR, XR CHEST 1V, 09/07/2020, 3:00. FINDINGS: Dual-chamber left-sided pacemaker present. Heart size enlarged, there is moderate vascular congestion. Atherosclerotic vascular calcification noted in the aortic arch. Minimal left basilar atelectasis and or infiltrate. IMPRESSION: Cardiomegaly moderate vascular congestion and Aortic atherosclerosis and left-sided pacemaker Minimal left basilar atelectasis and/or infiltrate Approved by: Avery Gonsalves M.D. on 04/11/2021 at 14:29
--- NOTE | 2021-04-11 14:25 | ED.GENADULT ---
HPI - General Adult General Chief complaint: Shortness of Breath/Dyspnea Stated complaint: SOB Time Seen by Provider: 04/11/21 14:11 Source: patient and EMS Mode of arrival: EMS Limitations: no limitations History of Present Illness HPI narrative: Patient is a 70-year-old male with a history of CHF. Is a [id number] diabetic. States that he has been off of his Lasix for the past several days. He states that he saw his material man who refilled his medications but he states there was a issue with insurance and paying for the medicine so he has not taken it for the past several days. He denies chest pain. He states that his shortness of breath has been worsening since he has been off the medicine. Denies any lower extremity edema. No belly pain. Related Data Home Medications Medication Instructions Recorded Confirmed multivitamin 1 tab PO DAILY #0 11/21/11 09/07/20 albuterol sulfate 90 mcg/actuation 2 puff INH PRN PRN #0 08/23/17 09/07/20 aerosol inhaler (Ventolin HFA) glipizide 5 mg tablet 5 mg PO BID #0 08/23/17 09/07/20 aspirin 81 mg chewable tablet 81 mg PO DAILY 12/17/18 09/07/20 atorvastatin 80 mg tablet 80 mg PO DAILY 12/17/18 09/07/20 buspirone 30 mg tablet 30 mg PO BID 12/17/18 09/07/20 carvedilol 25 mg tablet 25 mg PO BID 12/17/18 09/07/20 fluticasone propionate 50 1 spray INTRANASAL DAILY 12/17/18 09/07/20 mcg/actuation nasal spray,suspension lidocaine 5 % topical patch 3 patch TOPICAL DAILY 12/17/18 09/07/20 omeprazole 40 mg capsule,delayed 40 mg PO DAILY 12/17/18 09/07/20 release oxybutynin chloride 5 mg tablet 5 mg PO TID 12/17/18 09/07/20 testosterone cypionate 200 mg/mL 200 mg IM Q4W 12/17/18 09/07/20 intramuscular oil tramadol 50 mg tablet 50 mg PO Q6H PRN 12/17/18 09/07/20 sertraline 100 mg tablet 200 mg PO DAILY 09/07/20 09/07/20 Previous Rx's Medication Instructions Recorded furosemide 40 mg tablet 40 mg PO BID 30 Days #60 tab 04/11/21 Allergies Allergy/AdvReac Type Severity Reaction Status Date / Time Sulfa (Sulfonamide Allergy Severe RASH Verified 08/26/20 17:45 Antibiotics) [SULFA (SULFONAMIDE ANTIBIOTICS)] iodine [IODINE] Allergy Mild RASH Verified 08/26/20 17:45 Review of Systems Constitutional Constitutional: Denies fever(s) and Denies headache(s) Eyes Eyes: Reports system reviewed and no additional complaints, except as documented ENT Ears, Nose, Mouth, and Throat: Denies headache(s) Cardiovascular Cardiovascular: Reports system reviewed and no additional complaints, except as documented, Denies chest pain, Reports dyspnea and Reports dyspnea on exertion Respiratory Respiratory: Denies cough, Reports dyspnea and Reports dyspnea on exertion Gastrointestinal Gastrointestinal: Reports system reviewed and no additional complaints, except as documented Musculoskeletal Musculoskeletal: Reports system reviewed and no additional complaints, except as documented Integumentary/Breasts Skin/Breast: Reports system reviewed and no additional complaints, except as documented Neurologic Neurologic: Denies headache(s) Psychiatric Psychiatric: Reports system reviewed and no additional complaints, except as documented Hematologic/Lymphatic On Anticoagulants: No Patient History Medical History Coronary artery disease Diabetes GERD (gastroesophageal reflux disease) Hyperlipidemia Hypertension Systolic heart failure Surgical History History of colonoscopy History of local excision of skin lesion History of permanent cardiac pacemaker placement History of skin graft Social History household members: children Smoking Status: Never smoker alcohol intake: never substance use type: does not use Smoking Status: Never smoker Substance Use Type: does not use Exam Initial Vital Signs Initial Vital Signs: Vital Signs Pulse Rate 102 H 04/11/21 14:21 Respiratory Rate 35 H 04/11/21 14:21 Pulse Oximetry 95 04/11/21 14:21 Const General: cooperative, healthy appearing and comfortable HENHI Head: normal to inspection and normocephalic Eyes General: appearance normal, both eyes and all related structures Chest Chest: normal inspection of the chest Resp Effort & Inspection: labored and tachypneic Auscultation: crackles and diminished lung sounds Cardio Rate: regular rate Rhythm: regular rhythm GI Inspection: normal to inspection Back/Spine/Pelvis Back: normal to inspection Skin General: no rashes or lesions noted Neuro General: patient alert, patient awake and moves all extremities Extrem General: no pedal edema Psych Appearance: grossly normal and well kempt Course Orders Ordered: ED Orders 04/11/21 13:55 Complete Blood Count AUTO DIFF Stat Comprehensive Metabolic Panel Stat Lipase Stat NT-proBNP (BNP-Adult 18+) Stat Troponin & CK Cardiac Panel Stat 04/11/21 14:13 XR chest 1V Stat RT Consult Eval and Treat Now 04/11/21 14:17 COVID19 -Nasal swab/Pre-Proc Stat 04/11/21 14:24 EKG-12 Lead Stat 04/11/21 17:05 Arterial Blood Gas Stat Discontinued Medications Albuterol/Ipratropium (Albuterol/Ipratropium 3 Ml Ampul) 3 ml INH NOW ONE Stop: 04/11/21 14:32 Last Admin: 04/11/21 16:08 Dose: Not Given Documented by: LINDSEY Furosemide (Furosemide 100 Mg/10 Ml Vial) 60 mg IV NOW ONE Stop: 04/11/21 14:26 Last Admin: 04/11/21 14:32 Dose: 60 mg Documented by: CRISTAL Vital Signs Vital signs: Vital Signs - 8 hr 04/11/21 14:21 04/11/21 14:30 04/11/21 15:00 Pulse Rate 102 H 101 H 109 H Respiratory Rate 35 H 35 H 47 H Blood Pressure 147/91 H Pulse Oximetry 95 95 93 04/11/21 15:30 04/11/21 15:59 04/11/21 16:00 Pulse Rate 100 H 96 H 95 H Respiratory Rate 36 H Blood Pressure 150/84 H 141/85 H Pulse Oximetry 91 93 91 04/11/21 16:30 04/11/21 16:36 04/11/21 16:39 Pulse Rate 96 H 103 H 107 H Respiratory Rate 28 H Blood Pressure 134/87 138/78 Pulse Oximetry 92 91 86 L 04/11/21 17:00 Pulse Rate 96 H Respiratory Rate 34 H Blood Pressure 141/84 H Pulse Oximetry 93 Medical Decision Making Lab Data Lab results reviewed: Yes I reviewed the patient's lab results. Result diagrams: 04/11/21 13:55 04/11/21 13:55 Labs: Lab Results 04/11/21 04/11/21 04/11/21 Range/Units 13:55 13:55 13:55 WBC 9.5 (4.5-11.0) X10^3/uL RBC 5.30 (4.5-5.9) X10^6/uL Hgb 13.6 (13.5-17.5) g/dL Hct 42.0 (41-53) % MCV 79.3 L (80-100) fL MCH 25.7 L (26-34) PG MCHC 32.4 (30-36) % RDW 16.5 H (11.6-14.8) % Plt Count 240 (150-400) X10^3/uL Neut % (Auto) 72.2 (50-75) % Lymph % (Auto) 17.3 L (25-40) % [place] % (Auto) 8.0 (3-14) % Eos % (Auto) 2.3 (2-4) % Baso % (Auto) 0.2 (0-2) % Neut # (Auto) 6800 (5981-0291) /uL Lymph # (Auto) 1600 (6028-1133) /uL [place] # (Auto) 800 (0-900) /uL Eos # (Auto) 200 (0-450) /uL Baso # (Auto) 0 (0-100) /uL ABG pH (7.35-7.45) ABG pCO2 (35-45) mmHg ABG pO2 (80-100) mmHg ABG HCO3 (22-26) mmol/L ABG Total CO2 (21-31) mmol/L ABG O2 Saturation (95-100) % ABG Base Excess (-2-2) mmol/L FiO2 Sodium 142 (137-145) mmol/L Potassium 3.9 (3.4-5.1) mmol/L Chloride 109 H (98-107) mmol/L Carbon Dioxide 25 (22-32) mmol/L BUN 12 (9-20) mg/dL Creatinine 0.93 (0.66-1.25) mg/dL Estimated GFR > 60.0 (>60) mL/min BUN/Creatinine Ratio 12.9 (6-22) Glucose 137 H (80-110) mg/dL Calcium 9.1 (8.4-10.2) mg/dL Total Bilirubin 0.9 (0.2-1.3) mg/dL AST 28 (17-59) IU/L ALT 14 (<50) IU/L Alkaline Phosphatase 77 (38-126) U/L Total Creatine Kinase 47 L (55-170) U/L CK-MB (CK-2) TNP CK-MB (CK-2) Rel Index TNP Troponin I 0.014 (0.01-0.034) ng/mL NT-Pro-B Natriuret Pep 5040 H (<125) pg/mL Total Protein 7.5 (6.3-8.2) g/dL Albumin 4.2 (3.5-5.0) g/dL Globulin 3.3 (1.7-4.1) g/dL Albumin/Globulin Ratio 1.3 (1.0-2.8) Lipase 54 (23-300) U/L SARS-CoV-2 (PCR) (Negative) 04/11/21 04/11/21 Range/Units 14:17 17:05 WBC (4.5-11.0) X10^3/uL RBC (4.5-5.9) X10^6/uL Hgb (13.5-17.5) g/dL Hct (41-53) % MCV (80-100) fL MCH (26-34) PG MCHC (30-36) % RDW (11.6-14.8) % Plt Count (150-400) X10^3/uL Neut % (Auto) (50-75) % Lymph % (Auto) (25-40) % [place] % (Auto) (3-14) % Eos % (Auto) (2-4) % Baso % (Auto) (0-2) % Neut # (Auto) (0704-8979) /uL Lymph # (Auto) (4470-9623) /uL [place] # (Auto) (0-900) /uL Eos # (Auto) (0-450) /uL Baso # (Auto) (0-100) /uL ABG pH 7.47 H (7.35-7.45) ABG pCO2 34.7 L (35-45) mmHg ABG pO2 66 L (80-100) mmHg ABG HCO3 25 (22-26) mmol/L ABG Total CO2 26 (21-31) mmol/L ABG O2 Saturation 94 L (95-100) % ABG Base Excess 2.0 (-2-2) mmol/L FiO2 94 Sodium (137-145) mmol/L Potassium (3.4-5.1) mmol/L Chloride (98-107) mmol/L Carbon Dioxide (22-32) mmol/L BUN (9-20) mg/dL Creatinine (0.66-1.25) mg/dL Estimated GFR (>60) mL/min BUN/Creatinine Ratio (6-22) Glucose (80-110) mg/dL Calcium (8.4-10.2) mg/dL Total Bilirubin (0.2-1.3) mg/dL AST (17-59) IU/L ALT (<50) IU/L Alkaline Phosphatase (38-126) U/L Total Creatine Kinase (55-170) U/L CK-MB (CK-2) CK-MB (CK-2) Rel Index Troponin I (0.01-0.034) ng/mL NT-Pro-B Natriuret Pep (<125) pg/mL Total Protein (6.3-8.2) g/dL Albumin (3.5-5.0) g/dL Globulin (1.7-4.1) g/dL Albumin/Globulin Ratio (1.0-2.8) Lipase (23-300) U/L SARS-CoV-2 (PCR) Negative (Negative) Imaging Data Chest x-ray: Radiologist's Impression: [address] [id number] ReportSigned Patient: Raymond Zazueta WMR#: [id number]: 8Acct:[id number]/Sex: 70 / MDate of Service: 04/11/21Loc: EDAccession Number: [id number] Procedure: XR chest 1V Ordering Provider: Antoine Hoyos D.O. PROCEDURE: XR CHEST 1V INDICATIONS: Shortness of breath TECHNIQUE: One view of the chest was acquired. COMPARISON: [facility], , XR CHEST 1V, 09/07/2020, 3:00. FINDINGS: Dual-chamber left-sided pacemaker present. Heart size enlarged, there is moderate vascular congestion. Atherosclerotic vascular calcification noted in the aortic arch. Minimal left basilar atelectasis and or infiltrate. IMPRESSION: Cardiomegaly moderate vascular congestion and Aortic atherosclerosis and left-sided pacemaker Minimal left basilar atelectasis and/or infiltrate Approved by: Avery Gonsalves M.D. on 04/11/2021 at 14:29 ECG Data Attestation: I personally reviewed and interpreted this ECG as follows: Interpretation: Ventricular paced Rate 93 MDM Narrative Medical decision making narrative: Patient was given Lasix and diuresed approximately 1.5 L of urine. This did improve his symptoms. Patient was no longer hypoxic sitting in bed however when he got up to use the restroom when ambulated around the department his oxygen saturations decreased to the mid to low 80s. Because of this patient will be admitted to the hospital for further evaluation. Discussed the case with Dr. Mederos with internal medicine who will admit for further evaluation and treatment. I did discuss is the patient as well. He expressed understanding and agreement. Discharge Plan Departure Patient Disposition: Admitted as Observation Clinical Impression: Acute on chronic congestive heart failure, Hypoxia Admit Date/Time: 04/11/21 17:18 Admit Provider: Souleymaen Mederos
[2021-04-11 14:26] LABS: Add Manual Diff / Slide Review NO; Basophils Absolute Auto 0 /uL (0-100); Basophils Percent Auto 0.2 % (0-2); Eosinophils Absolute Auto 200 /uL (0-450); Eosinophils Percent Auto 2.3 % (2-4); Hemoglobin 13.6 g/dL (13.5-17.5); Lymphocytes Absolute Auto 1600 /uL (1100-4500); Lymphocytes Percent Auto 17.3 % (25-40); Mean Corpuscular HGB Conc 32.4 % (30-36); Mean Corpuscular Hemoglobin 25.7 PG (26-34); Mean Corpuscular Volume 79.3 fL (80-100); Monocytes Absolute Auto 800 /uL (0-900); Neutrophils Absolute Auto 6800 /uL (1500-7000); Neutrophils Percent Auto 72.2 % (50-75); Platelet Count 240 X10^3/uL (150-400); Red Cell Distribution Width 16.5 % (11.6-14.8); White Blood Cell Count 9.5 X10^3/uL (4.5-11.0)
[2021-04-11] MEDS: FUROSEMIDE 100 MG/10 ML VIAL 60 MG IV (14:32)
[2021-04-11 14:36] LABS: COVID19 -Nasal RAPID Negative (Negative)
[2021-04-11 14:41] LABS: Alanine Aminotransferase 14 IU/L (<50); Albumin 4.2 g/dL (3.5-5.0); Albumin Globulin Ratio 1.3 (1.0-2.8); Alkaline Phosphatase 77 U/L (38-126); Aspartate Aminotransferase 28 IU/L (17-59); BUN Creatinine Ratio 12.9 (6-22); Bilirubin Total 0.9 mg/dL (0.2-1.3); Blood Urea Nitrogen 12 mg/dL (9-20); Calcium 9.1 mg/dL (8.4-10.2); Carbon Dioxide 25 mmol/L (22-32); Chloride 109 mmol/L (98-107); Creatine Kinase 47 U/L (55-170); Estimated Glomerular Filt Rate > 60.0 mL/min (>60); Globulin 3.3 g/dL (1.7-4.1); Glucose 137 mg/dL (80-110); HEMOLYSIS 18 (0-50); Lipase 54 U/L (23-300); Potassium 3.9 mmol/L (3.4-5.1); Sodium 142 mmol/L (137-145); Total Protein 7.5 g/dL (6.3-8.2)
[2021-04-11 14:53] LABS: NT-proBNP (BNP-Adult 18+) 5040 pg/mL (<125); Troponin I 0.014 ng/mL (0.01-0.034)
--- NOTE | 2021-04-11 18:09 | P.HP_ITS ---
History of Present Illness History of Present Illness Date Patient Seen: 04/11/21 Time Patient Seen: 18:10 Chief complaint: SOB Narrative: This is a 70-year-old male with past medical history significant for coronary artery disease, status post pacemaker implantation, HFrEF (25-30%), hypertension, hyperlipidemia, type 2 diabetes and GERD who presents to the ER with worsening shortness of breath. He has been having worsening symptoms over the past few weeks. He had apparently been off of furosemide, saw Dr. Gillette for his pacemaker whom re-prescribed last week but this was never picked up due to insurance issues per the patient. In the ER, the patient desaturated into the mid-80s with ambulation after dosing of lasix, though his symptoms were improving. By the time of arrival to the floor, the patient was able to ambulate well and O2 saturations remained in the mid 90s. He was agreeable to discharge home. Patient History Medical History Coronary artery disease Diabetes GERD (gastroesophageal reflux disease) Hyperlipidemia Hypertension Systolic heart failure Surgical History History of colonoscopy History of local excision of skin lesion History of permanent cardiac pacemaker placement History of skin graft Family & Social History Social History: household members children Safety & Behavioral: Feels Safe in Current Yes Environment Been Physically Hurt or No Threatened By a Person Tobacco & Substance use: Smoking Status Never smoker alcohol intake never Substance Use Type does not use Meds Home Medications and Allergies Home Medications Medication Instructions Recorded Confirmed Type multivitamin 1 tab PO DAILY #0 11/21/11 09/07/20 History albuterol sulfate 90 mcg/actuation 2 puff INH PRN PRN #0 08/23/17 09/07/20 History aerosol inhaler (Ventolin HFA) glipizide 5 mg tablet 5 mg PO BID #0 08/23/17 09/07/20 History aspirin 81 mg chewable tablet 81 mg PO DAILY 12/17/18 09/07/20 History atorvastatin 80 mg tablet 80 mg PO DAILY 12/17/18 09/07/20 History buspirone 30 mg tablet 30 mg PO BID 12/17/18 09/07/20 History carvedilol 25 mg tablet 25 mg PO BID 12/17/18 09/07/20 History fluticasone propionate 50 1 spray INTRANASAL DAILY 12/17/18 09/07/20 History mcg/actuation nasal spray,suspension lidocaine 5 % topical patch 3 patch TOPICAL DAILY 12/17/18 09/07/20 History omeprazole 40 mg capsule,delayed 40 mg PO DAILY 12/17/18 09/07/20 History release oxybutynin chloride 5 mg tablet 5 mg PO TID 12/17/18 09/07/20 History testosterone cypionate 200 mg/mL 200 mg IM Q4W 12/17/18 09/07/20 History intramuscular oil tramadol 50 mg tablet 50 mg PO Q6H PRN 12/17/18 09/07/20 History sertraline 100 mg tablet 200 mg PO DAILY 09/07/20 09/07/20 History furosemide 40 mg tablet 40 mg PO BID 30 Days #60 tab 04/11/21 Rx Allergies Allergy/AdvReac Type Severity Reaction Status Date / Time Sulfa (Sulfonamide Allergy Severe RASH Verified 08/26/20 17:45 Antibiotics) [SULFA (SULFONAMIDE ANTIBIOTICS)] iodine [IODINE] Allergy Mild RASH Verified 08/26/20 17:45 Review of Systems Review of Systems Narrative: All other systems reviewed with the patient and are negative unless otherwise stated. Exam Vital Signs (past 8 hours): - 04/11/21 14:21 04/11/21 14:30 04/11/21 15:00 Pulse Rate 102 H 101 H 109 H Respiratory Rate 35 H 35 H 47 H Blood Pressure 147/91 H Pulse Oximetry 95 95 93 04/11/21 15:30 04/11/21 15:59 04/11/21 16:00 Pulse Rate 100 H 96 H 95 H Respiratory Rate 36 H Blood Pressure 150/84 H 141/85 H Pulse Oximetry 91 93 91 04/11/21 16:30 04/11/21 16:36 04/11/21 16:39 Pulse Rate 96 H 103 H 107 H Respiratory Rate 28 H Blood Pressure 134/87 138/78 Pulse Oximetry 92 91 86 L 04/11/21 17:00 04/11/21 17:30 Pulse Rate 96 H 94 H Respiratory Rate 34 H 31 H Blood Pressure 141/84 H 125/76 Pulse Oximetry 93 93 Narrative Exam Narrative: GENERAL APPEARANCE: Well developed, well nourished, in no acute distress. mildly dyspnic with exertion, improved with rest. SKIN: Inspection of the skin reveals no rashes, ulcerations or petechiae. HEENT: Normocephalic atraumatic, extraocular muscles are intact, oropharynx is clear and mucous membranes are moist, neck is supple without adenopathy NECK: Supple and symmetric. There was no thyroid enlargement, and no tenderness, or masses were felt. CHEST: Normal AP diameter and normal contour without any kyphoscoliosis. LUNGS: Auscultation of the lungs revealed no wheezes, rhonchi, or rales. CARDIOVASCULAR: There was a regular rate and rhythm without any murmurs, gallops, rubs. Peripheral pulses were 2+ and symmetric. ABDOMEN: Soft and nontender with normal bowel sounds. No ascites was noted. MUSCULOSKELETAL: There was no tenderness or effusions noted. Muscle strength and tone were normal. EXTREMITIES: No cyanosis, clubbing. Minimal lower extremity edema bilaterally, chronic LE well healed skin grafting on the R. NEUROLOGIC: Alert and oriented x 3. Normal affect. Gait was normal. Strength is +5/5 in the Upper Extremities and Lower Extremities Bilaterally. Sensation to touch was normal. Objective ECG Impression: Atrial-sensed ventricular-paced rhythm Imaging Chest x-ray: My impression: bilateral vascular congestion, cardiomegaly. Improved compared to prior imaging though that was during a HF exacerbation. Radiologist's impression: PROCEDURE: XR CHEST 1V INDICATIONS: Shortness of breath TECHNIQUE: One view of the chest was acquired. COMPARISON: [facility], , XR CHEST 1V, 09/07/2020, 3:00. FINDINGS: Dual-chamber left-sided pacemaker present. Heart size enlarged, there is moderate vascular congestion. Atherosclerotic vascular calcification noted in the aortic arch. Minimal left basilar atelectasis and or infiltrate. IMPRESSION: Cardiomegaly moderate vascular congestion and Aortic atherosclerosis and left-sided pacemaker Minimal left basilar atelectasis and/or infiltrate Labs Result Diagrams: 04/11/21 13:55 04/11/21 13:55 Labs: Laboratory Results - last 24 hr 04/11/21 04/11/21 04/11/21 13:55 13:55 13:55 WBC 9.5 RBC 5.30 Hgb 13.6 Hct 42.0 MCV 79.3 L MCH 25.7 L MCHC 32.4 RDW 16.5 H Plt Count 240 Neut % (Auto) 72.2 Lymph % (Auto) 17.3 L Harnett % (Auto) 8.0 Eos % (Auto) 2.3 Baso % (Auto) 0.2 Neut # (Auto) 6800 Lymph # (Auto) 1600 Harnett # (Auto) 800 Eos # (Auto) 200 Baso # (Auto) 0 Sodium 142 Potassium 3.9 Chloride 109 H Carbon Dioxide 25 BUN 12 Creatinine 0.93 Estimated GFR > 60.0 BUN/Creatinine Ratio 12.9 Glucose 137 H Calcium 9.1 Total Bilirubin 0.9 AST 28 ALT 14 Alkaline Phosphatase 77 Total Creatine Kinase 47 L CK-MB (CK-2) TNP CK-MB (CK-2) Rel Index TNP Troponin I 0.014 NT-Pro-B Natriuret Pep 5040 H Total Protein 7.5 Albumin 4.2 Globulin 3.3 Albumin/Globulin Ratio 1.3 Lipase 54 SARS-CoV-2 (PCR) 04/11/21 14:17 WBC RBC Hgb Hct MCV MCH MCHC RDW Plt Count Neut % (Auto) Lymph % (Auto) Harnett % (Auto) Eos % (Auto) Baso % (Auto) Neut # (Auto) Lymph # (Auto) Harnett # (Auto) Eos # (Auto) Baso # (Auto) Sodium Potassium Chloride Carbon Dioxide BUN Creatinine Estimated GFR BUN/Creatinine Ratio Glucose Calcium Total Bilirubin AST ALT Alkaline Phosphatase Total Creatine Kinase CK-MB (CK-2) CK-MB (CK-2) Rel Index Troponin I NT-Pro-B Natriuret Pep Total Protein Albumin Globulin Albumin/Globulin Ratio Lipase SARS-CoV-2 (PCR) Negative Assessment & Plan Assessment & Plan narrative: This is a 70-year-old male with past medical history significant for coronary artery disease, status post pacemaker implanta tion, HFrEF (25-30%), hypertension, hyperlipidemia, type 2 diabetes and GERD who presents to the ER with worsening shortness of breath. In the ER he was given 60 mg of IV lasix which he has greatly responded to. No longer requiring supplemental oxygen after arrival to the floor. Patient was agreeable to discharge home. He was sent a presciption for oral lasix. 1. Acute respiratory failure with hypoxia, resolved - secondary to volume overload, improved with IV lasix in the ER. 2. Acute on chronic systolic heart failure, improved - improved with single dose of lasix in the ER after patient had been without lasix therapy. prescribed for 40 mg PO BID, recommended to follow up with his outpatient PCP in the next few days for continued adjustment. - troponin negative and EKG paced. Patient denies chest pain. -He is on beta vin and Arb therapy. Discharged last admission with losartan 50 mg daily. 3. Hypertension, chronic -no changes are recommended to his current home medications 4. Hyperlipidemia, chronic -no changes are recommended to his current home medications 5. Type 2 diabetes, chronic -no changes are recommended to his current home medications 6. CAD, chronic -no changes are recommended to his current home medications 7. History of pacemaker implantation Code status: Full Code, the patient designates his daughter to be his surrogate decision maker I have utilized all available immediate resources to obtain, update, or review the patient's current medications. Please note this serves as the patient's discharge summary as well. Discharged home after initial evaluation. COVID-19 COVID-19 status: Negative Quality MIPS - DC The patient has current or prior documentation of left ventricular ejection fraction (LVEF) less than 40%, or moderate or severely depressed left ventricular systolic function.: Yes A. The patient was prescribed or already taking an Angiotensin-Converting Enzyme (ROSIBEL) Inhibitor, or Angiotensin Receptor Vin (ARB).: Yes B. The patient was prescribed or already taking a beta-vin. [If Yes to Both A & B, STOP here]: Yes
[2021-04-11 18:15] LABS: Fractionated Inspired Oxygen 94; HCO3 ABG 25 mmol/L (22-26); Oxygen Saturation ABG 94 % (95-100); PCO2 ABG 34.7 mmHg (35-45); PO2 ABG 66 mmHg (80-100); TCO2 ABG 26 mmol/L (21-31); pH ABG 7.47 (7.35-7.45)
[2021-04-11 18:36] LABS: COVID19 - ADMIT (NP swab/PCR) Negative (Negative)
--- NOTE | 2021-04-11 19:22 | PC.ADMIT ---
[email or web address] Admission Note: The patient,Raymond Zazueta,70 y/o, was given written information regarding hospital policies, unit procedures and contact persons. Patient's smoking status: Never smoker. Pt arrived at 1740 from ED. A/O. MD in during admission assessment stating patient can be discharged. Admission completed. Oriented to room and call system. Sats 94% RA. Denies SOB, difficulty breathing or chest pain. Vital Signs - 8 hr 04/11/21 14:21 04/11/21 14:30 04/11/21 15:00 Pulse Rate 102 H 101 H 109 H Respiratory Rate 35 H 35 H 47 H Blood Pressure 147/91 H Pulse Oximetry 95 95 93 04/11/21 15:30 04/11/21 15:59 04/11/21 16:00 Pulse Rate 100 H 96 H 95 H Respiratory Rate 36 H Blood Pressure 150/84 H 141/85 H Pulse Oximetry 91 93 91 04/11/21 16:30 04/11/21 16:36 04/11/21 16:39 Pulse Rate 96 H 103 H 107 H Respiratory Rate 28 H Blood Pressure 134/87 138/78 Pulse Oximetry 92 91 86 L 04/11/21 17:00 04/11/21 17:30 Pulse Rate 96 H 94 H Respiratory Rate 34 H 31 H Blood Pressure 141/84 H 125/76 Pulse Oximetry 93 93
--- NOTE | 2021-04-11 19:25 | PC.NURSE ---
Discharge education provided including fluid restriction, CHF, O2 sats, medications and follow-up with PCP. Pt verbalized understanding of all instructions. IV removed. Escorted out via w/c. Awaiting family to arrive for pick-up.
== END 2021-04-11 19:45 | disposition home or self-care (01) ==
LOC: ED 16:51 → AC 17:22
PROVIDERS: Admitting Provider Internal Medicine; Emergency Provider Emergency Medicine; Family Provider Family Medicine; PCP Family Medicine; Referring Provider Emergency Medicine; Visit Provider Internal Medicine
DX: J96.01 Acute respiratory failure with hypoxia (principal); I11.0 Hypertensive heart disease with heart failure; I50.23 Acute on chronic systolic (congestive) heart failure; E78.5 Hyperlipidemia, unspecified; E11.9 Type 2 diabetes mellitus without complications; K21.9 Gastro-esophageal reflux disease without esophagitis; I25.10 Atherosclerotic heart disease of native coronary artery without angina pectoris; Z20.822 Contact with and (suspected) exposure to COVID-19; Z95.0 Presence of cardiac pacemaker; Z79.84 Long term (current) use of oral hypoglycemic drugs
CPT/HCPCS: 36600; 71045; 80053; 82550; 82805; 83690; 83880; 84484; 85025; 87635; 93005; 96374; 99284; C9803; G0378; J1940

== ENCOUNTER → 2021-05-09 10:59 | Outpatient (CLI) | payer OTHER, SELFPAY ==
[2020-09-07 08:15] VITALS: PULSE 73; RESP 23; O2SAT 96
[2021-04-11 17:43] VITALS: BMI 32.0
[2021-05-09 11:49] LABS: Hematocrit 40.5 % (41-53); Hemoglobin 13.2 g/dL (13.5-17.5)
[2021-05-09 12:03] LABS: BUN Creatinine Ratio 11.6 (6-22); Blood Urea Nitrogen 10 mg/dL (9-20); Calcium 9.1 mg/dL (8.4-10.2); Carbon Dioxide 24 mmol/L (22-32); Chloride 110 mmol/L (98-107); Estimated Glomerular Filt Rate > 60.0 mL/min (>60); Glucose 149 mg/dL (80-110); HEMOLYSIS < 15 (0-50); Potassium 3.2 mmol/L (3.4-5.1); Sodium 141 mmol/L (137-145)
[2021-05-09 14:31] LABS: Creatinine Urine Random 191.2 mg/dL; Protein (Total) Urine Random 60 mg/dL (0-12); Protein Creatinine Ratio Urine 0.31 GRAM/24H
[2021-05-10 07:36] LABS: Parathyroid Hormone Int 30 pg/mL (15-65)
== END ==
PROVIDERS: Family Provider Family Medicine; PCP Family Medicine; Referring Provider Student in an Organized Health Care Education/Training Program; Visit Provider Student in an Organized Health Care Education/Training Program
DX: N05.9 Unspecified nephritic syndrome with unspecified morphologic changes (principal); D64.9 Anemia, unspecified; N25.81 Secondary hyperparathyroidism of renal origin; R80.9 Proteinuria, unspecified
CPT/HCPCS: 36415; 80048; 82570; 83970; 84156; 85014; 85018

== ENCOUNTER → 2021-05-19 15:19 | Outpatient (CLI) | payer OTHER, SELFPAY ==
[2020-09-07 08:15] VITALS: PULSE 73; RESP 23; O2SAT 96
[2021-04-11 17:43] VITALS: BMI 32.0
[2021-05-19 16:40] LABS: HEMOLYSIS 46 (0-50)
== END ==
PROVIDERS: Family Provider Family Medicine; PCP Family Medicine; Referring Provider Student in an Organized Health Care Education/Training Program; Visit Provider Student in an Organized Health Care Education/Training Program
DX: E87.5 Hyperkalemia (principal)
CPT/HCPCS: 36415; 84132

== ENCOUNTER → 2021-06-08 10:06 | Outpatient (CLI) | payer OTHER, SELFPAY ==
[2020-09-07 08:15] VITALS: PULSE 73; RESP 23; O2SAT 96
[2021-04-11 17:43] VITALS: BMI 32.0
[2021-06-08 11:16] LABS: BUN Creatinine Ratio 21.9 (6-22); Blood Urea Nitrogen 39 mg/dL (9-20); Calcium 9.6 mg/dL (8.4-10.2); Carbon Dioxide 25 mmol/L (22-32); Chloride 104 mmol/L (98-107); Estimated Glomerular Filt Rate 37.8 mL/min (>60); Glucose 199 mg/dL (80-110); HEMOLYSIS 20 (0-50); Potassium 4.2 mmol/L (3.4-5.1); Sodium 140 mmol/L (137-145)
== END ==
PROVIDERS: Family Provider Family Medicine; PCP Family Medicine; Referring Provider Student in an Organized Health Care Education/Training Program; Visit Provider Student in an Organized Health Care Education/Training Program
DX: N05.9 Unspecified nephritic syndrome with unspecified morphologic changes (principal)
CPT/HCPCS: 36415; 80048

== ENCOUNTER → 2021-06-20 09:12 | Outpatient (CLI) | payer OTHER, SELFPAY ==
[2020-09-07 08:15] VITALS: PULSE 73; RESP 23; O2SAT 96
[2021-04-11 17:43] VITALS: BMI 32.0
[2021-06-20 10:03] LABS: BUN Creatinine Ratio 12.7 (6-22); Blood Urea Nitrogen 15 mg/dL (9-20); Calcium 8.8 mg/dL (8.4-10.2); Carbon Dioxide 30 mmol/L (22-32); Chloride 105 mmol/L (98-107); Estimated Glomerular Filt Rate > 60.0 mL/min (>60); Glucose 163 mg/dL (80-110); HEMOLYSIS < 15 (0-50); Potassium 3.9 mmol/L (3.4-5.1); Sodium 141 mmol/L (137-145)
== END ==
PROVIDERS: Family Provider Family Medicine; PCP Family Medicine; Referring Provider Student in an Organized Health Care Education/Training Program; Visit Provider Student in an Organized Health Care Education/Training Program
DX: N05.9 Unspecified nephritic syndrome with unspecified morphologic changes (principal)
CPT/HCPCS: 36415; 80048

== ENCOUNTER → 2021-08-21 15:55 | Outpatient (CLI) | payer OTHER, SELFPAY ==
[2020-09-07 08:15] VITALS: PULSE 73; RESP 23; O2SAT 96
[2021-04-11 17:43] VITALS: BMI 32.0
[2021-08-21 17:17] LABS: Hematocrit 46.3 % (41-53); Hemoglobin 15.7 g/dL (13.5-17.5)
[2021-08-21 17:21] LABS: Protein (Total) Urine Random 16 mg/dL (0-12); Protein Creatinine Ratio Urine 0.12 GRAM/24H
[2021-08-21 17:43] LABS: BUN Creatinine Ratio 11.7 (6-22); Blood Urea Nitrogen 15 mg/dL (9-20); Calcium 9.8 mg/dL (8.4-10.2); Carbon Dioxide 31 mmol/L (22-32); Chloride 104 mmol/L (98-107); Estimated Glomerular Filt Rate 55.1 mL/min (>60); Glucose 161 mg/dL (80-110); HEMOLYSIS 44 (0-50); Sodium 143 mmol/L (137-145)
[2021-08-21 17:52] LABS: NT-proBNP (BNP-Adult 18+) 1160 pg/mL (<125)
[2021-08-21 17:57] LABS: Potassium 5.4 mmol/L (3.4-5.1)
[2021-08-22 05:37] LABS: Parathyroid Hormone Int 44 pg/mL (15-65)
== END ==
PROVIDERS: Family Provider Family Medicine; PCP Family Medicine; Referring Provider Student in an Organized Health Care Education/Training Program; Visit Provider Student in an Organized Health Care Education/Training Program
DX: N05.9 Unspecified nephritic syndrome with unspecified morphologic changes (principal); I50.32 Chronic diastolic (congestive) heart failure; N25.81 Secondary hyperparathyroidism of renal origin; R80.9 Proteinuria, unspecified
CPT/HCPCS: 36415; 80048; 82570; 83880; 83970; 84156; 85014; 85018

== ENCOUNTER → 2021-08-28 14:52 | Outpatient (CLI) | payer OTHER, SELFPAY ==
[2020-09-07 08:15] VITALS: PULSE 73; RESP 23; O2SAT 96
[2021-04-11 17:43] VITALS: BMI 32.0
[2021-08-28 15:41] LABS: HEMOLYSIS < 15 (0-50); Potassium 4.2 mmol/L (3.4-5.1)
== END ==
PROVIDERS: Family Provider Family Medicine; PCP Family Medicine; Referring Provider Student in an Organized Health Care Education/Training Program; Visit Provider Student in an Organized Health Care Education/Training Program
DX: E87.5 Hyperkalemia (principal)
CPT/HCPCS: 36415; 84132

== ENCOUNTER → 2021-12-19 14:40 | Outpatient (CLI) | payer MEDICARE, OTHER, SELFPAY ==
[2020-09-07 08:15] VITALS: PULSE 73; RESP 23; O2SAT 96
[2021-04-11 17:43] VITALS: BMI 32.0
[2021-12-19 15:01] LABS: Hematocrit 39.2 % (41-53); Hemoglobin 12.9 g/dL (13.5-17.5)
[2021-12-19 15:18] LABS: BUN Creatinine Ratio 7.4 (6-22); Blood Urea Nitrogen 9 mg/dL (9-20); Calcium 8.3 mg/dL (8.4-10.2); Carbon Dioxide 32 mmol/L (22-32); Chloride 102 mmol/L (98-107); Estimated Glomerular Filt Rate > 60 mL/min (>60); Glucose 232 mg/dL (80-110); HEMOLYSIS < 15 (0-50); Potassium 3.1 mmol/L (3.4-5.1); Sodium 142 mmol/L (137-145)
[2021-12-19 18:46] LABS: Creatinine Urine Random 197.4 mg/dL; Protein (Total) Urine Random 52 mg/dL (0-12); Protein Creatinine Ratio Urine 0.26 GRAM/24H
[2021-12-20 07:57] LABS: Parathyroid Hormone Int 89 pg/mL (15-65)
== END ==
PROVIDERS: Family Provider Family Medicine; PCP Family Medicine; Referring Provider Student in an Organized Health Care Education/Training Program; Visit Provider Student in an Organized Health Care Education/Training Program
DX: N05.9 Unspecified nephritic syndrome with unspecified morphologic changes (principal); R80.9 Proteinuria, unspecified; D64.9 Anemia, unspecified; N25.81 Secondary hyperparathyroidism of renal origin
CPT/HCPCS: 36415; 80048; 82570; 83970; 84156; 85014; 85018

== ENCOUNTER → 2021-12-25 16:31 | Outpatient (CLI) | payer MEDICARE, OTHER, SELFPAY ==
[2020-09-07 08:15] VITALS: PULSE 73; RESP 23; O2SAT 96
[2021-04-11 17:43] VITALS: BMI 32.0
[2021-12-25 17:41] LABS: BUN Creatinine Ratio 16.6 (6-22); Blood Urea Nitrogen 24 mg/dL (9-20); Calcium 8.7 mg/dL (8.4-10.2); Carbon Dioxide 26 mmol/L (22-32); Chloride 104 mmol/L (98-107); Estimated Glomerular Filt Rate 51 mL/min (>60); Glucose 174 mg/dL (80-110); HEMOLYSIS < 15 (0-50); Potassium 3.6 mmol/L (3.4-5.1); Sodium 143 mmol/L (137-145)
== END ==
PROVIDERS: Family Provider Family Medicine; PCP Family Medicine; Referring Provider Student in an Organized Health Care Education/Training Program; Visit Provider Student in an Organized Health Care Education/Training Program
DX: N05.9 Unspecified nephritic syndrome with unspecified morphologic changes (principal)
CPT/HCPCS: 36415; 80048

== ENCOUNTER → 2022-03-01 14:33 | Outpatient (CLI) | payer MEDICARE, OTHER, SELFPAY ==
[2020-09-07 08:15] VITALS: PULSE 73; RESP 23; O2SAT 96
[2021-04-11 17:43] VITALS: BMI 32.0
[2022-03-01 16:38] LABS: HEMOLYSIS < 15 (0-50); NT-proBNP (BNP-Adult 18+) 11400 pg/mL (<125)
[2022-03-01 16:54] LABS: BUN Creatinine Ratio 15.5 (6-22); Blood Urea Nitrogen 39 mg/dL (9-20); Calcium 9.4 mg/dL (8.4-10.2); Carbon Dioxide 25 mmol/L (22-32); Chloride 102 mmol/L (98-107); Estimated Glomerular Filt Rate 26 mL/min (>60); Glucose 110 mg/dL (80-110); Sodium 139 mmol/L (137-145)
[2022-03-01 17:02] LABS: Potassium 5.9 mmol/L (3.4-5.1)
== END ==
PROVIDERS: Family Provider Family Medicine; PCP Family Medicine; Referring Provider Student in an Organized Health Care Education/Training Program; Visit Provider Student in an Organized Health Care Education/Training Program
DX: N05.9 Unspecified nephritic syndrome with unspecified morphologic changes (principal); I50.32 Chronic diastolic (congestive) heart failure
CPT/HCPCS: 36415; 80048; 83880

== ENCOUNTER → 2022-03-07 09:29 | Outpatient (CLI) | payer MEDICARE, OTHER, SELFPAY ==
[2020-09-07 08:15] VITALS: PULSE 73; RESP 23; O2SAT 96
[2021-04-11 17:43] VITALS: BMI 32.0
[2022-03-07 10:35] LABS: BUN Creatinine Ratio 16.9 (6-22); Blood Urea Nitrogen 24 mg/dL (9-20); Calcium 8.7 mg/dL (8.4-10.2); Carbon Dioxide 24 mmol/L (22-32); Chloride 104 mmol/L (98-107); Estimated Glomerular Filt Rate 52 mL/min (>60); Glucose 115 mg/dL (80-110); Sodium 137 mmol/L (137-145)
[2022-03-07 10:39] LABS: HEMOLYSIS 51 (0-50)
== END ==
PROVIDERS: Family Provider Family Medicine; PCP Family Medicine; Referring Provider Student in an Organized Health Care Education/Training Program; Visit Provider Student in an Organized Health Care Education/Training Program
DX: N05.9 Unspecified nephritic syndrome with unspecified morphologic changes (principal)
CPT/HCPCS: 36415; 80048

== ENCOUNTER → 2022-03-19 14:51 | Outpatient (CLI) | payer MEDICARE, OTHER, SELFPAY ==
[2020-09-07 08:15] VITALS: PULSE 73; RESP 23; O2SAT 96
[2021-04-11 17:43] VITALS: BMI 32.0
[2022-03-19 16:42] LABS: Blood Urea Nitrogen 17 mg/dL (9-20); Calcium 9.1 mg/dL (8.4-10.2); Carbon Dioxide 25 mmol/L (22-32); Chloride 108 mmol/L (98-107); Estimated Glomerular Filt Rate > 60 mL/min (>60); Glucose 108 mg/dL (80-110); HEMOLYSIS < 15 (0-50); Potassium 4.5 mmol/L (3.4-5.1); Sodium 139 mmol/L (137-145)
== END ==
PROVIDERS: Family Provider Family Medicine; PCP Family Medicine; Referring Provider Student in an Organized Health Care Education/Training Program; Visit Provider Student in an Organized Health Care Education/Training Program
DX: N05.9 Unspecified nephritic syndrome with unspecified morphologic changes (principal)
CPT/HCPCS: 36415; 80048

== ENCOUNTER → 2022-04-16 15:42 | Outpatient (CLI) | payer MEDICARE, OTHER, SELFPAY ==
[2020-09-07 08:15] VITALS: PULSE 73; RESP 23; O2SAT 96
[2021-04-11 17:43] VITALS: BMI 32.0
--- NOTE | 2022-04-16 15:49 | DI.ECHO.S_ITS ---
[facility]---------+ [facility] +---------+ : : [address] : : : : [id number] : : : : Phone: [phone]+ Echocardiogram Report + + :Name: RAISA RICKS Study Date: 04/16/2022 Height: 69 in : :[facility] ReadingLocation: Weight: 190 lb : : Gender: Male BSA: 2.0 m2 : :: 1950 Age: 71 yrs BP: 119/79 mmHg: :Reason For Study: LV DYSFUNCTION : :Ordering Physician: KELSEA, : :KARISSA Performed By: Deirdre Powers : :Referring: KARISSA ENAMORADO : + + Interpretation Summary Limited study. Moderately dilated left ventricle with ejection fraction 15-20%. There is severe global hypokinesis of the left ventricle. Severely dilated right ventricle with moderate to severely reduced right ventricular systolic function. There is a pacemaker lead in the right ventricle. Severe biatrial enlargement. Mild tricuspid regurgitation. The right ventricular systolic pressure is estimated to be at least 51 mmHg based on an estimated right atrial pressure of 15 mm Hg. Comparison is made with the echocardiogram of 09/07/2020, both LV & RV function has worsen. Procedure: A two-dimensional transthoracic echocardiogram with color flow and Doppler was performed in limited views only. The study quality was technically adequate. Comparison is made with the echocardiogram of 09/07/2020. The patient has a paced rhythm. The heart rate ranged between 95- 100 bpm during the study. Left Ventricle: The left ventricle is moderately dilated. The estimated left ventricular end diastolic volume is 200 ml. Left ventricular systolic function is severely reduced. The ejection fraction is estimated to be 15-20%. There is severe global hypokinesis of the left ventricle. Right Ventricle: The right ventricle is severely dilated. There is a pacemaker lead in the right ventricle. Right ventricular systolic function is moderate to severely reduced. Atria: There is severe biatrial enlargement. Tricuspid Valve: There is mild tricuspid regurgitation. The right ventricular systolic pressure is estimated to be at least 51 mmHg based on an estimated right atrial pressure of 15 mm Hg. Great Vessels: The IVC is dilated (diameter is greater than 2.1 cm) and it collapses less than 50% with a sniff. This suggests a high right atrial pressure of 15 mm Hg. Pericardium/ Pleura There is no pericardial effusion. There is no pleural effusion. MMode/2D Measurements & Calculations LVIDd: 5.9 cm LA A2 area: 29.9 cm2 LVIDs: 5.4 cm LA A4 area: 26.7 cm2 FS: 9.1 % LA length (vol): 6.6 cm EPSS: 2.0 cm LA vol: 102.6 ml IVSd: 1.2 cm LA vol index: 50.7 ml/m2 LVPWd: 0.99 cm LV herron. diameter/BSA (cm/m^2): 2.9 LV sys. diameter/BSA (cm/m^2): 2.7 RA long axis: 6.1 cm RVD1 (basal): 6.8 cm RA area: 36.2 cm2 RVD2 (mid): 5.8 cm RA vol: 181.1 ml TAPSE: 1.4 cm RA : 89.6 ml/m2 IVC diam: 2.3 cm Doppler Measurements & Calculations TR max moris: 298.0 cm/sec TR max P.5 mmHg Electronically signed by: Eve Goyal on Reading Physician:04/19/2022 09:23 PM
== END ==
PROVIDERS: Family Provider Family Medicine; PCP Family Medicine; Referring Provider Physician Assistant Medical; Visit Provider Physician Assistant Medical
DX: I07.1 Rheumatic tricuspid insufficiency (principal); Z95.0 Presence of cardiac pacemaker
CPT/HCPCS: 93307

== ENCOUNTER → 2022-04-30 16:05 | Outpatient (CLI) | payer MEDICARE, OTHER, SELFPAY ==
[2020-09-07 08:15] VITALS: PULSE 73; RESP 23; O2SAT 96
[2021-04-11 17:43] VITALS: BMI 32.0
[2022-04-30 16:41] LABS: Hematocrit 39.5 % (41-53); Hemoglobin 12.6 g/dL (13.5-17.5)
[2022-04-30 16:50] LABS: Blood Urea Nitrogen 20 mg/dL (9-20); Calcium 8.7 mg/dL (8.4-10.2); Carbon Dioxide 26 mmol/L (22-32); Chloride 106 mmol/L (98-107); Estimated Glomerular Filt Rate 52 mL/min (>60); Glucose 127 mg/dL (80-110); HEMOLYSIS < 15 (0-50); Potassium 3.8 mmol/L (3.4-5.1); Sodium 141 mmol/L (137-145)
[2022-04-30 18:05] LABS: Protein (Total) Urine Random 108 mg/dL (0-12)
[2022-05-02 09:56] LABS: Parathyroid Hormone Int 80 pg/mL (15-65)
== END ==
PROVIDERS: Family Provider Family Medicine; PCP Family Medicine; Referring Provider Student in an Organized Health Care Education/Training Program; Visit Provider Student in an Organized Health Care Education/Training Program
DX: D64.9 Anemia, unspecified (principal); N05.9 Unspecified nephritic syndrome with unspecified morphologic changes; N25.81 Secondary hyperparathyroidism of renal origin; R80.9 Proteinuria, unspecified
CPT/HCPCS: 36415; 80048; 82570; 83970; 84156; 85014; 85018

== ENCOUNTER → 2022-06-12 14:44 | Outpatient (CLI) | payer MEDICARE, OTHER, SELFPAY ==
[2020-09-07 08:15] VITALS: PULSE 73; RESP 23; O2SAT 96
[2021-04-11 17:43] VITALS: BMI 32.0
--- NOTE | 2022-06-12 14:55 | DI.RAD.S_ITS ---
PROCEDURE: XR LUMBAR SPINE 2-3V INDICATIONS: Fall from ground level TECHNIQUE: 3 views of the lumbar spine were acquired. COMPARISON: [facility], CT, CT ABDOMEN PELVIS WITHOUT CONTRAST, 05/11/2022, 3:08. [facility], CR, XR THORACIC SPINE 3V, 06/12/2022, 15:21. FINDINGS: Bones: 5 [id number] vertebrae are present. 2 mm retrolisthesis L1-L2, L2-L3 and L3-L4. Moderate disc height loss with endplate sclerosis and spurring L5-S1. Moderate L4-L5 and L5-S1 facet joint arthropathy. No vertebral body compression fractures. No suspicious bony lesions. Soft tissues: Overlying bowel gas pattern is normal. No suspicious soft tissue calcifications. Laminated right upper quadrant calcifications. IMPRESSION: 1. Multilevel lumbar spine spondylosis. 2. Cholelithiasis redemonstrated. Dictated by: Alvin NAIR Interpreted: Manuela Garay MD on 06/12/2022 at 15:48 Transcribed by: CHRIS on 06/12/2022 at 15:49 Approved by: Manuela Garay M.D. on 06/13/2022 at 8:14
--- NOTE | 2022-06-12 14:55 | DI.RAD.S_ITS ---
PROCEDURE: XR RIBS RT MIN 3V W CXR 1V INDICATIONS: Fall from ground level TECHNIQUE: 3 views of the right ribs were acquired, along with a single view chest. COMPARISON: [facility], , XR CHEST 1 VIEW, 05/11/2022, 0:18. FINDINGS: Surgical changes and devices: Stable appearance of left chest AICD. Bones and chest wall: No fractures or dislocations. No suspicious bony lesions. Overlying soft tissues appear unremarkable. Lungs and pleura: No pleural effusions or pneumothorax. Lungs appear clear. Mediastinum: Mediastinal contours appear normal. Heart size is enlarged. IMPRESSION: 1. No displaced right rib fractures Dictated by: Alvin Grimm RRA Interpreted: Manuela Garay MD on 06/12/2022 at 15:41 Transcribed by: HCRIS on 06/12/2022 at 15:43 Approved by: Manuela Garay M.D. on 06/13/2022 at 8:14
--- NOTE | 2022-06-12 14:55 | DI.RAD.S_ITS ---
PROCEDURE: XR THORACIC SPINE 3V INDICATIONS: Fall from ground level TECHNIQUE: 3 views of the thoracic spine were acquired. COMPARISON: [facility], CT, CT ABDOMEN PELVIS WITHOUT CONTRAST, 05/11/2022, 3:08. FINDINGS: Bones: No fractures or dislocations. No suspicious bony lesions. 12 pairs of ribs are noted, and appear intact where visualized. Mild dextrocurvature centered at the midthoracic level. Mild multilevel disc height loss with endplate sclerosis and spurring. Soft tissues: No paravertebral stripe thickening. Large right upper quadrant laminated calcifications. IMPRESSION: 1. Mild multilevel disc degeneration. 2. Cholelithiasis redemonstrated Dictated by: Alvin Grimm [facility] Interpreted: Manuela Garay MD on 06/12/2022 at 15:47 Transcribed by: CHRIS on 06/12/2022 at 15:48 Approved by: Manuela Garay M.D. on 06/13/2022 at 8:14
--- NOTE | 2022-06-12 14:55 | DI.RAD.S_ITS ---
PROCEDURE: XR ANKLE RT MIN 3V INDICATIONS: Fall from ground level TECHNIQUE: 3 views of the ankle were acquired. COMPARISON: None. FINDINGS: Bones: No fractures or dislocations. Ankle mortise is normally aligned. No suspicious bony lesions. Soft tissues: No tibiotalar joint effusion. Achilles tendon appears normal. Posterior soft tissue surgical clips. Vascular calcifications indicate atherosclerosis. IMPRESSION: No acute fracture. No osseous lesion. If clinical suspicion and/orsymptoms persist, further assessment with repeat plainfilms, or advanced imaging (e.g., CT, MRI, or bone scan) may be helpful for further assessment. Dictated by: Alvin Grimm [facility] Interpreted: Manuela Garay MD on 06/12/2022 at 15:59 Transcribed by: CHRIS on 06/12/2022 at 16:00 Approved by: Manuela Garay M.D. on 06/13/2022 at 8:14
[2022-06-12 15:34] LABS: Add Manual Diff / Slide Review NO; Basophils Absolute Auto 0 /uL (0-100); Basophils Percent Auto 0.3 % (0-2); Eosinophils Absolute Auto 100 /uL (0-450); Eosinophils Percent Auto 1.5 % (2-4); Hematocrit 40.7 % (41-53); Lymphocytes Absolute Auto 2500 /uL (1100-4500); Lymphocytes Percent Auto 33.5 % (25-40); Mean Corpuscular Hemoglobin 24.6 PG (26-34); Mean Corpuscular Volume 76.7 fL (80-100); Monocytes Absolute Auto 500 /uL (0-900); Monocytes Percent Auto 7.5 % (3-14); Neutrophils Absolute Auto 4200 /uL (1500-7000); Neutrophils Percent Auto 57.2 % (50-75); Platelet Count 113 X10^3/uL (150-400); Red Cell Distribution Width 23.5 % (11.6-14.8); White Blood Cell Count 7.3 X10^3/uL (4.5-11.0)
[2022-06-12 15:48] LABS: Alanine Aminotransferase 30 IU/L (<50); Albumin 3.5 g/dL (3.5-5.0); Albumin Globulin Ratio 0.9 (1.0-2.8); Alkaline Phosphatase 101 U/L (38-126); Aspartate Aminotransferase 33 IU/L (17-59); BUN Creatinine Ratio 14.7 (6-22); Bilirubin Total 2.6 mg/dL (0.2-1.3); Blood Urea Nitrogen 25 mg/dL (9-20); Calcium 8.4 mg/dL (8.4-10.2); Carbon Dioxide 27 mmol/L (22-32); Chloride 104 mmol/L (98-107); Estimated Glomerular Filt Rate 42 mL/min (>60); Globulin 3.9 g/dL (1.7-4.1); Glucose 142 mg/dL (80-110); HEMOLYSIS < 15 (0-50); Potassium 4.6 mmol/L (3.4-5.1); Sodium 143 mmol/L (137-145); Total Protein 7.4 g/dL (6.3-8.2)
[2022-06-12 15:49] LABS: Albumin 3.4 g/dL (3.5-5.0); Anisocytosis 1+; Microcytosis 1+; Poikilocytosis 2+
[2022-06-12 15:50] LABS: Ovalocytes 1+
[2022-06-17 22:13] LABS: HEMOLYSIS < 15 (0-50); Iron 69 ug/dL (49-181)
[2022-06-17 22:22] LABS: Prealbumin 12.7 mg/dL (17.6-36.0)
[2022-06-17 22:26] LABS: Percent Iron Saturation 16 % (20-50); Total Iron Binding Capacity 420 ug/dL (261-462); Transferrin 282 mg/dL (206-381)
[2022-06-17 22:50] LABS: Ferritin 96 ng/mL (18-464)
[2022-06-17 23:21] LABS: Folate > 20.0 ng/mL (2.76-20.0); Vitamin B12 832 pg/mL (239-931)
== END ==
PROVIDERS: Family Provider Family Medicine; PCP Family Medicine; Referring Provider Nurse Practitioner Family; Visit Provider Nurse Practitioner Family
DX: I50.42 Chronic combined systolic (congestive) and diastolic (congestive) heart failure (principal); R77.0 Abnormality of albumin; M51.34 Other intervertebral disc degeneration, thoracic region; K80.20 Calculus of gallbladder without cholecystitis without obstruction; M47.816 Spondylosis without myelopathy or radiculopathy, lumbar region; M47.817 Spondylosis without myelopathy or radiculopathy, lumbosacral region
CPT/HCPCS: 36415; 71101; 72072; 72100; 73610; 80053; 82040; 82607; 82728; 82746; 83540; 83550; 84134; 85025

== ENCOUNTER → 2022-06-21 14:40 | Outpatient (CLI) | payer MEDICARE, OTHER, SELFPAY ==
[2020-09-07 08:15] VITALS: PULSE 73; RESP 23; O2SAT 96
[2021-04-11 17:43] VITALS: BMI 32.0
--- NOTE | 2022-06-21 14:47 | DI.RAD.S_ITS ---
PROCEDURE: XR ANKLE RT MIN 3V INDICATIONS: FALL FROM GROUND LEVEL TECHNIQUE: 3 views of the ankle were acquired. COMPARISON: [facility], CR, XR ANKLE RT MIN 3V, 06/12/2022, 15:21. FINDINGS: Bones: No fractures or dislocations. Ankle mortise is normally aligned. No suspicious bony lesions. Soft tissues: No tibiotalar joint effusion. Achilles tendon appears normal. IMPRESSION: No visualized fracture. However, given persistence of symptoms, CT or MRI is recommended. Dictated by: Manuela Garay M.D. on 06/21/2022 at 17:08 Approved by: Manuela Garay M.D. on 06/21/2022 at 17:09
--- NOTE | 2022-06-21 14:47 | DI.RAD.S_ITS ---
PROCEDURE: XR THORACIC SPINE 3V INDICATIONS: FALL FROM GROUND LEVEL TECHNIQUE: 3 views of the thoracic spine were acquired. COMPARISON: [facility], CR, XR THORACIC SPINE 3V, 06/12/2022, 15:21. FINDINGS: Bones: There are 12 pairs of ribs. Mild overall spondylosis with minimal endplate deformities that may be from degeneration. No spondylolisthesis or definite acute fracture. Soft tissues: Partially seen cardiac electrode leads. IMPRESSION: Mild overall spondylosis. If there is high concern for occult injury, consider repeat radiography or cross-sectional imaging. Evaluation is limited radiographically by overlapping structures. Dictated by: Raymond Ramachandran M.D. on 06/21/2022 at 16:42 Approved by: Raymond Ramachandran M.D. on 06/21/2022 at 16:45
--- NOTE | 2022-06-21 14:48 | DI.RAD.S_ITS ---
PROCEDURE: XR LUMBAR SPINE 2-3V INDICATIONS: FALL FROM GROUND LEVEL TECHNIQUE: 3 views of the lumbar spine were acquired. COMPARISON: [facility], CR, XR LUMBAR SPINE 2-3V, 06/12/2022, 15:21. FINDINGS: Bones: 5 [id number] vertebrae are present. There is normal bony alignment. No vertebral body compression fractures. No suspicious bony lesions. Hypertrophic facet joints present in the lower lumbar spine Soft tissues: Overlying bowel gas pattern is normal. No suspicious soft tissue calcifications. Cholelithiasis noted in the right upper quadrant IMPRESSION: Facet arthropathy without fracture or traumatic malalignment Approved by: Avery Gonsalves M.D. on 06/21/2022 at 16:34
--- NOTE | 2022-06-21 14:48 | DI.RAD.S_ITS ---
PROCEDURE: XR RIBS RT MIN 3V W CXR 1V INDICATIONS: FALL FROM GROUND LEVEL TECHNIQUE: 2 views of the right ribs were acquired, along with a single view chest. COMPARISON: [facility], CR, XR RIBS RT MIN 3V W CXR 1V, 06/12/2022, 15:21. FINDINGS: Surgical changes and devices: Biventricular left-sided pacemaker/defibrillator Bones and chest wall: No fractures or dislocations. No suspicious bony lesions. Overlying soft tissues appear unremarkable. Lungs and pleura: No pleural effusions or pneumothorax. Lungs appear clear. Mediastinum: Size enlarged. Mild vascular congestion noted. Atherosclerotic vascular calcification noted in the aortic arch. Cholelithiasis noted in the right upper quadrant IMPRESSION: No evidence of rib fracture or pneumothorax. Cardiomegaly, mild vascular congestion and cholelithiasis Approved by: Avery Gonsalves M.D. on 06/21/2022 at 16:33
[2022-06-21 19:11] LABS: BUN Creatinine Ratio 15.8 (6-22); Blood Urea Nitrogen 18 mg/dL (9-20); Calcium 9.3 mg/dL (8.4-10.2); Carbon Dioxide 32 mmol/L (22-32); Chloride 102 mmol/L (98-107); Estimated Glomerular Filt Rate > 60 mL/min (>60); Glucose 90 mg/dL (80-110); HEMOLYSIS < 15 (0-50); Potassium 3.1 mmol/L (3.4-5.1); Sodium 141 mmol/L (137-145)
[2022-06-21 19:22] LABS: NT-proBNP (BNP-Adult 18+) 30500 pg/mL (<125)
[2022-06-25 18:43] LABS: Protein (Total) Urine Random 63 mg/dL (0-12); Protein Creatinine Ratio Urine 0.35 GRAM/24H
== END ==
PROVIDERS: Family Provider Family Medicine; PCP Family Medicine; Referring Provider Student in an Organized Health Care Education/Training Program; Visit Provider Student in an Organized Health Care Education/Training Program
DX: I50.32 Chronic diastolic (congestive) heart failure (principal); N05.9 Unspecified nephritic syndrome with unspecified morphologic changes; K80.20 Calculus of gallbladder without cholecystitis without obstruction; R80.9 Proteinuria, unspecified; M47.814 Spondylosis without myelopathy or radiculopathy, thoracic region; M47.816 Spondylosis without myelopathy or radiculopathy, lumbar region; I51.7 Cardiomegaly; I70.0 Atherosclerosis of aorta; T14.90XA Injury, unspecified, initial encounter; W18.30XA Fall on same level, unspecified, initial encounter
CPT/HCPCS: 36415; 71101; 72072; 72100; 73610; 80048; 82570; 83880; 84156

== ENCOUNTER → 2022-06-25 16:36 | Outpatient (CLI) | payer MEDICARE, OTHER, SELFPAY ==
[2020-09-07 08:15] VITALS: PULSE 73; RESP 23; O2SAT 96
[2021-04-11 17:43] VITALS: BMI 32.0
[2022-06-25 18:01] LABS: Potassium 3.5 mmol/L (3.4-5.1)
== END ==
PROVIDERS: Family Provider Family Medicine; PCP Family Medicine; Referring Provider Student in an Organized Health Care Education/Training Program; Visit Provider Student in an Organized Health Care Education/Training Program
DX: E87.5 Hyperkalemia (principal)
CPT/HCPCS: 36415; 84132

== ENCOUNTER → 2022-07-12 15:03 | Outpatient (CLI) | payer MEDICARE, OTHER, SELFPAY ==
[2020-09-07 08:15] VITALS: PULSE 73; RESP 23; O2SAT 96
[2021-04-11 17:43] VITALS: BMI 32.0
[2022-07-12 17:46] LABS: BUN Creatinine Ratio 14.2 (6-22); Blood Urea Nitrogen 29 mg/dL (9-20); Calcium 8.7 mg/dL (8.4-10.2); Carbon Dioxide 28 mmol/L (22-32); Chloride 101 mmol/L (98-107); Estimated Glomerular Filt Rate 34 mL/min (>60); Glucose 118 mg/dL (80-110); HEMOLYSIS < 15 (0-50); Sodium 140 mmol/L (137-145)
== END ==
PROVIDERS: Family Provider Family Medicine; PCP Family Medicine; Referring Provider Student in an Organized Health Care Education/Training Program; Visit Provider Student in an Organized Health Care Education/Training Program
DX: N05.9 Unspecified nephritic syndrome with unspecified morphologic changes (principal)
CPT/HCPCS: 36415; 80048

== ENCOUNTER → 2022-09-10 10:30 | Outpatient (CLI) | payer MEDICARE, OTHER, SELFPAY ==
[2020-09-07 08:15] VITALS: PULSE 73; RESP 23; O2SAT 96
[2021-04-11 17:43] VITALS: BMI 32.0
[2022-09-10 11:21] LABS: BUN Creatinine Ratio 17.7 (6-22); Blood Urea Nitrogen 20 mg/dL (9-20); Calcium 8.6 mg/dL (8.4-10.2); Carbon Dioxide 24 mmol/L (22-32); Chloride 106 mmol/L (98-107); Estimated Glomerular Filt Rate > 60 mL/min (>60); Glucose 121 mg/dL (80-110); HEMOLYSIS < 15 (0-50); Potassium 4.5 mmol/L (3.4-5.1); Sodium 140 mmol/L (137-145)
[2022-09-10 11:29] LABS: NT-proBNP (BNP-Adult 18+) 21500 pg/mL (<125)
[2022-09-10 13:13] LABS: Creatinine Urine Random 152.9 mg/dL; Protein (Total) Urine Random 28 mg/dL (0-12); Protein Creatinine Ratio Urine 0.18 GRAM/24H
[2022-09-12 08:11] LABS: Parathyroid Hormone Int 45 pg/mL (15-65)
== END ==
PROVIDERS: Family Provider Family Medicine; PCP Family Medicine; Referring Provider Student in an Organized Health Care Education/Training Program; Visit Provider Student in an Organized Health Care Education/Training Program
DX: I50.32 Chronic diastolic (congestive) heart failure (principal); N05.9 Unspecified nephritic syndrome with unspecified morphologic changes; N25.81 Secondary hyperparathyroidism of renal origin; R80.9 Proteinuria, unspecified
CPT/HCPCS: 36415; 80048; 82570; 83880; 83970; 84156